=== PATIENT | female | born 1985 ===

== ENCOUNTER 2019-03-24 23:40 | Inpatient (IN) | payer BC ==
[2019-03-24] MEDS ORDERED: Sodium Chloride 0.9% 10 ML Syringe FLUSH PRN (23:58)
[2019-03-24] MEDS ORDERED: Sodium Chloride 0.9% 2.5 ML Syringe FLUSH PRN (23:58)
[2019-03-24] MEDS ORDERED: Acetaminophen 500 MG Tab PO ONE (23:59)
[2019-03-24] MEDS ORDERED: Sodium Chloride 0.9% 1,000 ML IV ONE (23:59)
--- NOTE | 2019-03-25 | EDM.PDOC ---
ED HPI GENERAL MEDICAL PROBLEM - General Chief Complaint: Skin Complaint Stated Complaint: PER PT. SHE HAS A CYST Time Seen by Provider: 03/24/19 23:53 - History of Present Illness INITIAL COMMENTS - FREE TEXT/NARRATIVE: HISTORY AND PHYSICAL: History of present illness: Patient is a 33-year-old female is any significant past medical history and denies and presents with complaints of a cyst or swollen area to her right butt. The patient tells me that this started about 4 days ago but previous to that she had a small bump like area on her left inner butt area that she said that she scratched and fluid came out. Now that area is hardened and is not as painful but the area on the right started swelling in the perianal area about 4 days ago and it is gotten progressively worse and now she is unable to even sit without severe discomfort. She tells me she has not had a fever at home vomiting or diarrhea and is having normal urine output. She has no abdominal pain and no pain up inside her rectal area. She does tell me that she has not been eating and drinking very much for the last day and a half because she does not want to sit on the toilet because of the pain. Tonight she came in because the pain was unbearable and she has not taken anything this evening for it. The patient denies lightheadedness or dizziness she has had no palpitations no chest pain no shortness of breath and no history of cardiac or pulmonary problems. Review of systems: As per history of present illness and below otherwise all systems reviewed and negative. Past medical history: As per history of present illness and as reviewed below otherwise noncontributory. Surgical history: As per history of present illness and as reviewed below otherwise noncontributory. Social history: No reported history of drug or alcohol abuse. Family history: As per history of present illness and as reviewed below otherwise noncontributory. Physical exam: General: Well-developed obese female who is nontoxic but looks uncomfortable in the ED and prefers to not sit and prefers to lie on her side. On my initial evaluation she was standing at the bedside and looks somewhat schmid in color and was diaphoretic. Once we laid her flat her color returned and she is feeling much better. HEENT: Atraumatic, normocephalic, pupils reactive, negative for conjunctival pallor or scleral icterus, mucous membranes moist, throat clear, neck supple, nontender, trachea midline. Lungs: Clear to auscultation, breath sounds equal bilaterally, chest nontender. Heart: S1S2, regular, negative for clicks, rubs, or JVD. Abdomen: Soft, nondistended, nontender. Negative for masses or hepatosplenomegaly. Negative for costovertebral tenderness. Pelvis: Stable nontender. Genitourinary: Deferred. Rectal: At the inner aspect of the left butt cheek several centimeters from the anal verge there is a circular open area with scant fluid drainage consistent with where the patient said she had the prior abscess that she scratched and was draining. She says she has minimal tenderness in this area. At the right inner buttock area originating from the perianal area and extending outwards there is an at least 8 cm x 4 cm oval area of ill-defined erythema warmth and induration with tenderness appreciated in the more inner aspect there is some fluctuance which is ill-defined. The medial to lateral dimension is the 4+ centimeters and the longitudinal dimension is the 8 cm but it does not extend into the perineal space or vaginal area. No evidence of any crepitus along the areas of induration and fluctuance nor in the perineal area. Tone is normal and on digital exam I am unable to really do high exam but I do not feel any gross fluctuance just inside the anus. The patient was not able to tolerate more of this exam. Extremities: Atraumatic, negative for cords or calf pain. Neurovascular unremarkable. Neuro: Awake, alert, oriented. Cranial nerves II through XII unremarkable. Cerebellum unremarkable. Motor and sensory unremarkable throughout. Exam nonfocal. Diagnostics: EKG CBC CMP lactic acid blood cultures UA UCG CT scan of the pelvis with contrast urine culture open A1c serum ketones Therapeutics: IV fluids Tylenol toradol morphine Zofran motrin zosyn insulin subq clindamycin 222a: case Was discussed with our surgeon on-call Dr. Peralta; he is aware of the case and will come and to evaluate the patient and review the CAT scan for disposition. The patient does need to be admitted and managed the question is whether or not we will keep her here or transfer her out and will discuss with the surgeon on his arrival. The patient is aware of the CT scan findings as well as her WBC count her lactate level and her blood glucose level. I did discuss with her that she is likely a new onset/newly diagnosed diabetic. When I query her she says she has never been told she is a prediabetic or ever had any abnormal testing. 312a: Dr Peralta seen the patient and will take her to the operating room in the morning but due to her new onset diabetes would like the hospitalist to admit her. I discussed this case with Dr. Baires who agrees with admission to her for [address] Grayson on consult. Impression: Right buttocks cellulitis/ abscess New onset diabetes Definitive disposition and diagnosis as appropriate pending reevaluation and review of above. lumbosacral region Pain Score (Numeric/FACES): 10 - Related Data Allergies Allergy/AdvReac Type Severity Reaction Status Date / Time No Known Allergies Allergy Verified 03/25/19 00:02 Home Meds: Home Meds Multivitamin [Multi-Vitamin Daily] 1 ea PO DAILY 03/25/19 [History] ED ROS GENERAL - Review of Systems Review Of Systems: Comprehensive ROS is negative, except as noted in HPI. ED EXAM, SKIN/RASH Exam: See Below (see Dictation) Course - Vital Signs Last Recorded V/S: Last Vital Signs Temp 37.7 C 03/25/19 01:47 Pulse 99 03/25/19 01:47 Resp 18 03/25/19 01:47 BP 122/71 03/25/19 01:47 Pulse Ox 95 03/25/19 01:47 - Orders/Labs/Meds Orders: Active Orders 24 hr Category Date Time Status EKG Documentation Completion [RC] STAT Care 03/24/19 23:53 Active Notify Provider Consults [RC] ASDIRECTED Care 03/25/19 02:25 Active Consult to Physician [CONS] Stat Cons 03/25/19 02:24 Active CULTURE BLOOD [BC] Stat Lab 03/24/19 23:59 Received CULTURE BLOOD [BC] Stat Lab 03/24/19 23:59 Received CULTURE URINE [RM] Stat Lab 03/25/19 00:12 Received Clindamycin Phosphate in D5W [Cleocin in D5W] 900 mg Med 03/25/19 03:16 Active Premix Bag 1 bag IV ONETIME Sodium Chloride 0.9% [Normal Saline] 1,000 ml Med 03/25/19 01:15 Active IV ASDIRECTED Sodium Chloride 0.9% [Saline Flush] Med 03/24/19 23:58 Active 10 ml FLUSH ASDIRECTED PRN Sodium Chloride 0.9% [Saline Flush] Med 03/24/19 23:58 Active 2.5 ml FLUSH ASDIRECTED PRN Blood Culture x2 Reflex Set [OM.PC] Stat Oth 03/24/19 23:59 Ordered Saline Lock Insert [OM.PC] Stat Oth 03/24/19 23:57 Ordered Medication Orders Sodium Chloride (Normal Saline) 1,000 mls @ 150 mls/hr IV ASDIRECTED GOLDY Last Admin: 03/25/19 01:20 Dose: 150 mls/hr Clindamycin Phosphate 900 mg/ (Premix) 50 mls @ 100 mls/hr IV ONETIME ONE Stop: 03/25/19 03:45 Sodium Chloride (Saline Flush) 10 ml FLUSH ASDIRECTED PRN PRN Reason: Keep Vein Open Sodium Chloride (Saline Flush) 2.5 ml FLUSH ASDIRECTED PRN PRN Reason: Keep Vein Open Labs: Laboratory Tests 03/25/19 03/25/19 03/25/19 Range/Units 00:05 00:05 00:05 WBC 22.70 H (4.0-11.0) K/uL RBC 5.27 (4.30-5.90) M/uL Hgb 15.5 (12.0-16.0) g/dL Hct 43.5 (36.0-46.0) % MCV 82.5 (80.0-98.0) fL MCH 29.4 (27.0-32.0) pg MCHC 35.6 (31.0-37.0) g/dL RDW Std Deviation 38.2 (28.0-62.0) fl RDW Coeff of Jocy 13 (11.0-15.0) % Plt Count 267 (150-400) K/uL MPV 9.60 (7.40-12.00) fL Add Manual Diff YES Neutrophils % (Manual) 72 (48.0-80.0) % Lymphocytes % (Manual) 21 (16.0-40.0) % Monocytes % (Manual) 7 (0.0-15.0) % Absolute Seg Neuts 16.3 H (1.4-5.7) Lymphocytes # (Manual) 4.8 H (0.6-2.4) Monocytes # (Manual) 1.6 H (0.0-0.8) Lactate 2.2 H* (0.20-2.00) mmol/L Sodium 137 (136-145) mmol/L Potassium 3.5 (3.5-5.1) mmol/L Chloride 100 (98-107) mmol/L Carbon Dioxide 21.6 (21.0-32.0) mmol/L BUN 7 (7.0-18.0) mg/dL Creatinine 0.9 (0.6-1.0) mg/dL Est Cr Clr Drug Dosing 99.37 mL/min Estimated GFR (MDRD) > 60.0 ml/min Glucose 305 H (74-106) mg/dL POC Glucose (60-110) mg/dL Hemoglobin A1c (4.5-6.2) % Calcium 8.8 (8.5-10.1) mg/dL Total Bilirubin 1.4 H (0.2-1.0) mg/dL AST 22 (15-37) IU/L ALT 61 (14-63) IU/L Alkaline Phosphatase 84 (46-116) U/L Total Protein 8.7 H (6.4-8.2) g/dL Albumin 3.5 (3.4-5.0) g/dL Globulin 5.2 H (2.6-4.0) g/dL Albumin/Globulin Ratio 0.7 L (0.9-1.6) Urine Color Urine Appearance Urine pH (5.0-8.0) Ur Specific [place] (1.001-1.035) Urine Protein (NEGATIVE) mg/dL Urine Glucose (UA) (NEGATIVE) mg/dL Urine Ketones (NEGATIVE) mg/dL Urine Occult Blood (NEGATIVE) Urine Nitrite (NEGATIVE) Urine Bilirubin (NEGATIVE) Urine Urobilinogen (<2.0) EU/dL Ur Leukocyte Esterase (NEGATIVE) Urine RBC (0-2/HPF) Urine WBC (0-5/HPF) Ur Epithelial Cells (NONE-FEW) Urine Bacteria (NEGATIVE) Urine HCG, Qual (NEGATIVE) Ketones (NEG) 03/25/19 03/25/19 03/25/19 Range/Units 00:05 00:05 00:12 WBC (4.0-11.0) K/uL RBC (4.30-5.90) M/uL Hgb (12.0-16.0) g/dL Hct (36.0-46.0) % MCV (80.0-98.0) fL MCH (27.0-32.0) pg MCHC (31.0-37.0) g/dL RDW Std Deviation (28.0-62.0) fl RDW Coeff of Jocy (11.0-15.0) % Plt Count (150-400) K/uL MPV (7.40-12.00) fL Add Manual Diff Neutrophils % (Manual) (48.0-80.0) % Lymphocytes % (Manual) (16.0-40.0) % Monocytes % (Manual) (0.0-15.0) % Absolute Seg Neuts (1.4-5.7) Lymphocytes # (Manual) (0.6-2.4) Monocytes # (Manual) (0.0-0.8) Lactate (0.20-2.00) mmol/L Sodium (136-145) mmol/L Potassium (3.5-5.1) mmol/L Chloride (98-107) mmol/L Carbon Dioxide (21.0-32.0) mmol/L BUN (7.0-18.0) mg/dL Creatinine (0.6-1.0) mg/dL Est Cr Clr Drug Dosing mL/min Estimated GFR (MDRD) ml/min Glucose (74-106) mg/dL POC Glucose (60-110) mg/dL Hemoglobin A1c 9.6 H (4.5-6.2) % Calcium (8.5-10.1) mg/dL Total Bilirubin (0.2-1.0) mg/dL AST (15-37) IU/L ALT (14-63) IU/L Alkaline Phosphatase (46-116) U/L Total Protein (6.4-8.2) g/dL Albumin (3.4-5.0) g/dL Globulin (2.6-4.0) g/dL Albumin/Globulin Ratio (0.9-1.6) Urine Color DARK YELLOW Urine Appearance SLT CLOUDY Urine pH 7.0 (5.0-8.0) Ur Specific [place] 1.015 (1.001-1.035) Urine Protein 30 H (NEGATIVE) mg/dL Urine Glucose (UA) >=1000 (NEGATIVE) mg/dL Urine Ketones 15 H (NEGATIVE) mg/dL Urine Occult Blood TRACE-INTACT H (NEGATIVE) Urine Nitrite NEGATIVE (NEGATIVE) Urine Bilirubin SMALL H (NEGATIVE) Urine Urobilinogen 0.2 (<2.0) EU/dL Ur Leukocyte Esterase TRACE H (NEGATIVE) Urine RBC 1-2 (0-2/HPF) Urine WBC 1-2 (0-5/HPF) Ur Epithelial Cells RARE (NONE-FEW) Urine Bacteria RARE (NEGATIVE) Urine HCG, Qual (NEGATIVE) Ketones NEGATIVE (NEG) 03/25/19 03/25/19 03/25/19 Range/Units 00:12 02:22 02:52 WBC (4.0-11.0) K/uL RBC (4.30-5.90) M/uL Hgb (12.0-16.0) g/dL Hct (36.0-46.0) % MCV (80.0-98.0) fL MCH (27.0-32.0) pg MCHC (31.0-37.0) g/dL RDW Std Deviation (28.0-62.0) fl RDW Coeff of Jocy (11.0-15.0) % Plt Count (150-400) K/uL MPV (7.40-12.00) fL Add Manual Diff Neutrophils % (Manual) (48.0-80.0) % Lymphocytes % (Manual) (16.0-40.0) % Monocytes % (Manual) (0.0-15.0) % Absolute Seg Neuts (1.4-5.7) Lymphocytes # (Manual) (0.6-2.4) Monocytes # (Manual) (0.0-0.8) Lactate (0.20-2.00) mmol/L Sodium (136-145) mmol/L Potassium (3.5-5.1) mmol/L Chloride (98-107) mmol/L Carbon Dioxide (21.0-32.0) mmol/L BUN (7.0-18.0) mg/dL Creatinine (0.6-1.0) mg/dL Est Cr Clr Drug Dosing mL/min Estimated GFR (MDRD) ml/min Glucose (74-106) mg/dL POC Glucose 240 H 233 H (60-110) mg/dL Hemoglobin A1c (4.5-6.2) % Calcium (8.5-10.1) mg/dL Total Bilirubin (0.2-1.0) mg/dL AST (15-37) IU/L ALT (14-63) IU/L Alkaline Phosphatase (46-116) U/L Total Protein (6.4-8.2) g/dL Albumin (3.4-5.0) g/dL Globulin (2.6-4.0) g/dL Albumin/Globulin Ratio (0.9-1.6) Urine Color Urine Appearance Urine pH (5.0-8.0) Ur Specific [place] (1.001-1.035) Urine Protein (NEGATIVE) mg/dL Urine Glucose (UA) (NEGATIVE) mg/dL Urine Ketones (NEGATIVE) mg/dL Urine Occult Blood (NEGATIVE) Urine Nitrite (NEGATIVE) Urine Bilirubin (NEGATIVE) Urine Urobilinogen (<2.0) EU/dL Ur Leukocyte Esterase (NEGATIVE) Urine RBC (0-2/HPF) Urine WBC (0-5/HPF) Ur Epithelial Cells (NONE-FEW) Urine Bacteria (NEGATIVE) Urine HCG, Qual NEGATIVE (NEGATIVE) Ketones (NEG) Meds: Medications Generic Name Dose Route Start Last Admin Trade Name Freq PRN Reason Stop Dose Admin Sodium Chloride 1,000 mls @ 150 mls/hr 03/25/19 01:15 03/25/19 01:20 Normal Saline IV 150 mls/hr ASDIRECTED GOLDY Administration Clindamycin Phosphate 900 mg/ 50 mls @ 100 mls/hr 03/25/19 03:16 Premix IV 03/25/19 03:45 ONETIME ONE Sodium Chloride 10 ml 03/24/19 23:58 Saline Flush FLUSH ASDIRECTED PRN Keep Vein Open Sodium Chloride 2.5 ml 03/24/19 23:58 Saline Flush FLUSH ASDIRECTED PRN Keep Vein Open Discontinued Medications Generic Name Dose Route Start Last Admin Trade Name Freq PRN Reason Stop Dose Admin Acetaminophen 1,000 mg 03/24/19 23:59 03/25/19 00:04 Tylenol Extra Strength PO 03/25/19 00:00 1,000 mg ONETIME ONE Administration Sodium Chloride 1,000 mls @ 999 mls/hr 03/24/19 23:59 03/25/19 00:04 Normal Saline IV 03/25/19 00:59 999 mls/hr STAT ONE Administration Sodium Chloride 1,000 mls @ 999 mls/hr 03/25/19 00:47 03/25/19 00:48 Normal Saline IV 03/25/19 01:47 999 mls/hr .Bolus ONE Administration Piperacillin Sod/Tazobactam 100 mls @ 100 mls/hr 03/25/19 01:09 03/25/19 01: 20 Sod 4.5 gm/ Sodium Chloride IV 03/25/19 02:08 100 mls/hr ONETIME ONE Administration Ibuprofen 800 mg 03/25/19 00:49 03/25/19 00:53 Motrin PO 03/25/19 00:50 800 mg ONETIME ONE Administration Insulin Human Regular 8 unit 03/25/19 02:16 03/25/19 02:24 Novolin R SUBCUT 03/25/19 02:17 6 units ONETIME ONE Administration Protocol Iopamidol 100 ml 03/25/19 01:16 03/25/19 01:28 Isovue-370 (76%) IVPUSH 03/25/19 01:17 100 ml ONETIME STA Administration Ketorolac Tromethamine 30 mg 03/25/19 00:25 03/25/19 00:36 Toradol IVPUSH 03/25/19 00:26 30 mg ONETIME ONE Administration Morphine Sulfate 4 mg 03/25/19 00:25 03/25/19 00:37 Morphine IVPUSH 03/25/19 00:26 4 mg ONETIME ONE Administration Morphine Sulfate 4 mg 03/25/19 01:41 03/25/19 01:47 Morphine IVPUSH 03/25/19 01:42 4 mg ONETIME ONE Administration Ondansetron HCl 4 mg 03/25/19 00:25 03/25/19 00:37 Zofran IVPUSH 03/25/19 00:26 4 mg ONETIME ONE Administration Departure - Departure Time of Disposition: 03:23 Disposition: Refer to Observation Condition: Good Clinical Impression: Abscess, Diabetes mellitus, new onset - Discharge Information Referrals: PCP,None [Primary Care Provider] - Forms: ED Department Discharge Sepsis Event Note - Focused Exam Vital Signs: Vital Signs Temp Temp Temp Pulse Resp BP Pulse Ox 03/25/19 01:47 37.7 C 99 18 122/71 95 03/25/19 01:07 38.1 C 101 H 18 117/72 97 03/25/19 00:53 38.3 C H 03/25/19 00:35 38.3 C H 112 H 22 H 147/81 H 96 03/25/19 00:06 38.6 C H 03/25/19 00:04 38.6 C H 03/24/19 23:53 36.4 C 152 H 16 153/84 H 96 Date Exam was Performed: 03/25/19 Time Exam was Performed: 03:22 - My Orders Last 24 Hours: My Active Orders 03/24/19 23:53 EKG Documentation Completion [RC] STAT 03/24/19 23:57 Saline Lock Insert [OM.PC] Stat 03/24/19 23:58 Sodium Chloride 0.9% [Saline Flush] 10 ml FLUSH ASDIRECTED PRN Sodium Chloride 0.9% [Saline Flush] 2.5 ml FLUSH ASDIRECTED PRN 03/24/19 23:59 CULTURE BLOOD [BC] Stat CULTURE BLOOD [BC] Stat Blood Culture x2 Reflex Set [OM.PC] Stat 03/25/19 00:12 CULTURE URINE [RM] Stat 03/25/19 01:15 Sodium Chloride 0.9% [Normal Saline] 1,000 ml IV ASDIRECTED 03/25/19 02:24 Consult to Physician [CONS] Stat 03/25/19 02:25 Notify Provider Consults [RC] ASDIRECTED 03/25/19 03:16 Clindamycin Phosphate in D5W [Cleocin in D5W] 900 mg Premix Bag 1 bag IV ONETIME - Assessment/Plan Last 24 Hours: My Active Orders 03/24/19 23:53 EKG Documentation Completion [RC] STAT 03/24/19 23:57 Saline Lock Insert [OM.PC] Stat 03/24/19 23:58 Sodium Chloride 0.9% [Saline Flush] 10 ml FLUSH ASDIRECTED PRN Sodium Chloride 0.9% [Saline Flush] 2.5 ml FLUSH ASDIRECTED PRN 03/24/19 23:59 CULTURE BLOOD [BC] Stat CULTURE BLOOD [BC] Stat Blood Culture x2 Reflex Set [OM.PC] Stat 03/25/19 00:12 CULTURE URINE [RM] Stat 03/25/19 01:15 Sodium Chloride 0.9% [Normal Saline] 1,000 ml IV ASDIRECTED 03/25/19 02:24 Consult to Physician [CONS] Stat 03/25/19 02:25 Notify Provider Consults [RC] ASDIRECTED 03/25/19 03:16 Clindamycin Phosphate in D5W [Cleocin in D5W] 900 mg Premix Bag 1 bag IV ONETIME
[2019-03-25] MEDS ORDERED: Ondansetron 4 MG/2 ML SDV IVPUSH ONE (00:25)
[2019-03-25] MEDS ORDERED: Morphine 2 MG/ML Syringe IVPUSH ONE (00:25)
[2019-03-25] MEDS ORDERED: Ketorolac 30 MG/ML SDV IVPUSH ONE (00:25)
[2019-03-25 00:33] LABS: BLOOD UREA NITROGEN,BUN 7 mg/dL (7.0-18.0); CARBON DIOXIDE,CO2 21.6 mmol/L (21.0-32.0); CHLORIDE,CL 100 mmol/L (98-107); GLUCOSE RANDOM 305 mg/dL (74-106); POTASSIUM,K 3.5 mmol/L (3.5-5.1); SODIUM,NA 137 mmol/L (136-145)
[2019-03-25] MEDS ORDERED: Sodium Chloride 0.9% 1,000 ML IV ONE (00:47)
[2019-03-25] MEDS ORDERED: Ibuprofen 800 MG Tab PO ONE (00:49)
[2019-03-25] MEDS ORDERED: Piperacillin/Tazobactam 4.5 GM in Sodium Chloride 0.9% 100 ML IV ONE (01:09)
[2019-03-25] MEDS ORDERED: Sodium Chloride 0.9% 1,000 ML IV SCH (01:15)
[2019-03-25] MEDS ORDERED: Iopamidol 755 Mg/ML 100 ML Bottle IVPUSH STA (01:16)
[2019-03-25] MEDS ORDERED: Morphine 4 MG/ML Syringe IVPUSH ONE (01:41)
--- NOTE | 2019-03-25 02:07 | CT ---
INDICATION: Right-sided buttock pain and swelling TECHNIQUE: CT pelvis with 100 cc Isovue 370 contrast. COMPARISON: None FINDINGS: There is a moderate amount of air within the subcutaneous fat of the medial right buttock. No definite rim enhancing fluid collection identified. Osseous structures are intact. Visualized organs of the lower abdomen and pelvis demonstrate hepatic steatosis. IMPRESSION: Moderate amount of air within the subcutaneous fat of the medial right buttock. No definite abscess identified. Although the air could be due to a ruptured abscess, the findings are also concerning for necrotizing soft tissue infection. Findings discussed with Dr. Lee at 2 a.m. on March 25, 2019. Please note that all CT scans at this facility use dose modulation, iterative reconstruction, and/or weight-based dosing when appropriate to reduce radiation dose to as low as reasonably achievable. Dictated by Ann Marie Desai MD @ Mar 25 2019 1:56AM Signed by Dr. Ann Marie Desai @ Mar 25 2019 2:05AM
[2019-03-25] MEDS ORDERED: Insulin Regular, Human 100 Units/ML 10 ML Vial SUBCUT ONE (02:16)
[2019-03-25 02:32] LABS: HEMOGLOBIN A1C 9.6 % (4.5-6.2)
[2019-03-25] MEDS ORDERED: Clindamycin Phosphate in D5W 900 MG in Premix Bag 1 BAG IV ONE ×2 (03:16)
--- NOTE | 2019-03-25 03:33 | PCM.SN ---
- Free Text/Narrative Note: pt seen, chart reviewed; large perirectal abscess; would take to OR ID tomorrow ; please no anticoagulation and keep pt NPO after midnight
--- NOTE | 2019-03-25 03:56 | CONS ---
DATE OF CONSULTATION: DATE OF : 1985 PRIMARY CARE PHYSICIAN: None PCP This is a consult from Dr. Vidhi Lee. Concerning question is buttock infection. HISTORY OF PRESENT ILLNESS: The patient is a 33-year-old morbidly obese lady, weight more than 340 pounds, seen in emergency room for 4-day history of buttock infection. CAT scan shows some air inside and in the perineum area. There is some concern about necrotizing fasciitis and General Surgery was consulted. The patient also remarked fever. PAST MEDICAL HISTORY: Significant for no diabetic, [place], CVA, hypertension. However, the patient's blood glucose is 300 something. PAST SURGICAL HISTORY: None. ALLERGIES: Please refer to nursing for details. MEDICATIONS: Please refer to nursing for details. PHYSICAL EXAMINATION: GENERAL: The patient does not seem to have exaggerated pain. HEENT: Normocephalic, atraumatic, and with a ring in the nose. LUNGS: Clear to auscultation. HEART: Regular rate and rhythm. ABDOMEN: Soft, nondistended. No pulsating tender midline abdominal structure. On perineum inspection, there was a puncture hole on the left buttock and on the right buttock, has very extensive cellulitis and tender to touch, but the cellulitis does not extend into the front into the vulva area. IMAGING: CAT scan shows extensive air localized. IMPRESSION: Likely isolated subcu abscess. Will benefit from I and D in timely basis. With the patient's comorbidity and glucose of 300 something and body habitus of 330 pounds something, the patient is probably an undiagnosed diabetic. CAT scan suggests infection. Plan to take the patient into I and D in the morning or tomorrow, and plan has been discussed with the ER provider. ALLEN / LINDSEY /[id number]
[2019-03-25] MEDS ORDERED: Propofol 200 MG/20 ML SDV ONE ×2 (06:59→07:37)
[2019-03-25] MEDS ORDERED: Midazolam 1 MG/ML 2 ML SDV ONE (06:59)
[2019-03-25] MEDS ORDERED: Lidocaine 2% 5 ML SDV ONE (07:00)
[2019-03-25] MEDS ORDERED: Ondansetron 4 MG/2 ML SDV ONE (07:00)
[2019-03-25] MEDS ORDERED: Rocuronium 100 MG/10 ML Syringe ONE (07:00)
[2019-03-25] MEDS ORDERED: fentaNYL 250 MCG/5 ML SDV ONE (07:00)
[2019-03-25] MEDS ORDERED: Bupivacaine 25%/EPINEPHrine/PF 30 ML ONE (07:22)
--- NOTE | 2019-03-25 07:48 | PCM.HP.2 ---
H&P History of Present Illness - General Date of Service: 03/25/19 Admit Problem/Dx: Admission Diagnosis/Problem Admission Diagnosis/Problem Abscess Source of Information: Patient History Limitations: Reports: No Limitations - History of Present Illness Initial Comments - Free Text/Narative: This is a 33 year old female with pmh of obesity who presented to the ER with c/ o of a "bump"to the right side of her butt. She has no fever, vomiting, loose stools, chest pain, or SOB. She has no known significant medical history. ER work up included EKG, CT, WBC 22, Lactate 2.2, Glucose 305, A1C 9.6, Urine positive for protein. Dr. Peralta consulted. Patient admitted for I/D of perirectal abscess scheduled for in the morning. Patient notified of new onset diabetes and diabetic education will consult. Fluids, Morphine,Toradol, Zofran, Zosyn, and Clindamycin started in the ER. Post surgical patient returns with a pain rating of 0 and is comfortable laying on her side. She is in no acute distress with no c/o of chest pain or SOB and is at her side. lumbosacral region Pain Score (Numeric/FACES): 3 - Related Data Allergies/Adverse Reactions: Allergies Allergy/AdvReac Type Severity Reaction Status Date / Time No Known Allergies Allergy Verified 03/25/19 07:54 Home Medications: Home Meds Multivitamin [Multi-Vitamin Daily] 1 ea PO DAILY 03/25/19 [History] Past Medical History - Past Health History Medical/Surgical History: Denies Medical/Surgical History Endocrine/Metabolic History: Reports: Diabetes, Type II Social & Family History - Tobacco Use Smoking Status *Q: Never Smoker Used Tobacco, but Quit: Yes Month/Year Tobacco Last Used: 2010 - Caffeine Use Caffeine Use: Reports: Tea - Recreational Drug Use Recreational Drug Use: No H&P Review of Systems - Review of Systems: Review Of Systems: See Below General: Reports: No Symptoms HEENT: Reports: No Symptoms Pulmonary: Reports: No Symptoms. Denies: Shortness of Breath Cardiovascular: Reports: No Symptoms. Denies: Chest Pain Gastrointestinal: Reports: No Symptoms. Denies: Abdominal Pain, Black Stool, Bloody Stool, Nausea, Vomiting Genitourinary: Reports: No Symptoms Musculoskeletal: Reports: No Symptoms Skin: Reports: No Symptoms, Wound ( post surgical dressing intact.) Psychiatric: Reports: No Symptoms Neurological: Reports: No Symptoms Hematologic/Lymphatic: Reports: No Symptoms Immunologic: Reports: No Symptoms Exam - Exam Exam: See Below - Vital Signs Vital Signs: Last Vital Signs Temp 97.4 F 03/25/19 07:33 Pulse 137 H 03/25/19 07:33 Resp 20 03/25/19 07:33 BP 118/64 03/25/19 07:33 Pulse Ox 95 03/25/19 07:33 Weight: 140.886 kg - Exam General: Alert, Oriented Lungs: Clear to Auscultation Cardiovascular: Regular Rate, Regular Rhythm GI/Abdominal Exam: Normal Bowel Sounds, Soft, Non-Tender Skin: Warm, Dry, Wound (buttocks, post op dressing intact. ) - Patient Data Lab Results Last 24 hrs: Laboratory Results - last 24 hr 03/25/19 03/25/19 03/25/19 Range/Units 00:05 00:05 00:05 WBC 22.70 H (4.0-11.0) K/uL RBC 5.27 (4.30-5.90) M/uL Hgb 15.5 (12.0-16.0) g/dL Hct 43.5 (36.0-46.0) % MCV 82.5 (80.0-98.0) fL MCH 29.4 (27.0-32.0) pg MCHC 35.6 (31.0-37.0) g/dL RDW Std Deviation 38.2 (28.0-62.0) fl RDW Coeff of Jocy 13 (11.0-15.0) % Plt Count 267 (150-400) K/uL MPV 9.60 (7.40-12.00) fL Add Manual Diff YES Neutrophils % (Manual) 72 (48.0-80.0) % Lymphocytes % (Manual) 21 (16.0-40.0) % Monocytes % (Manual) 7 (0.0-15.0) % Absolute Seg Neuts 16.3 H (1.4-5.7) Lymphocytes # (Manual) 4.8 H (0.6-2.4) Monocytes # (Manual) 1.6 H (0.0-0.8) Lactate 2.2 H* (0.20-2.00) mmol/L Sodium 137 (136-145) mmol/L Potassium 3.5 (3.5-5.1) mmol/L Chloride 100 (98-107) mmol/L Carbon Dioxide 21.6 (21.0-32.0) mmol/L BUN 7 (7.0-18.0) mg/dL Creatinine 0.9 (0.6-1.0) mg/dL Est Cr Clr Drug Dosing 99.37 mL/min Estimated GFR (MDRD) > 60.0 ml/min Glucose 305 H (74-106) mg/dL POC Glucose (60-110) mg/dL Hemoglobin A1c (4.5-6.2) % Calcium 8.8 (8.5-10.1) mg/dL Total Bilirubin 1.4 H (0.2-1.0) mg/dL AST 22 (15-37) IU/L ALT 61 (14-63) IU/L Alkaline Phosphatase 84 (46-116) U/L Total Protein 8.7 H (6.4-8.2) g/dL Albumin 3.5 (3.4-5.0) g/dL Globulin 5.2 H (2.6-4.0) g/dL Albumin/Globulin Ratio 0.7 L (0.9-1.6) Urine Color Urine Appearance Urine pH (5.0-8.0) Ur Specific [place] (1.001-1.035) Urine Protein (NEGATIVE) mg/dL Urine Glucose (UA) (NEGATIVE) mg/dL Urine Ketones (NEGATIVE) mg/dL Urine Occult Blood (NEGATIVE) Urine Nitrite (NEGATIVE) Urine Bilirubin (NEGATIVE) Urine Urobilinogen (<2.0) EU/dL Ur Leukocyte Esterase (NEGATIVE) Urine RBC (0-2/HPF) Urine WBC (0-5/HPF) Ur Epithelial Cells (NONE-FEW) Urine Bacteria (NEGATIVE) Urine HCG, Qual (NEGATIVE) Ketones (NEG) 03/25/19 03/25/19 03/25/19 Range/Units 00:05 00:05 00:12 WBC (4.0-11.0) K/uL RBC (4.30-5.90) M/uL Hgb (12.0-16.0) g/dL Hct (36.0-46.0) % MCV (80.0-98.0) fL MCH (27.0-32.0) pg MCHC (31.0-37.0) g/dL RDW Std Deviation (28.0-62.0) fl RDW Coeff of Jocy (11.0-15.0) % Plt Count (150-400) K/uL MPV (7.40-12.00) fL Add Manual Diff Neutrophils % (Manual) (48.0-80.0) % Lymphocytes % (Manual) (16.0-40.0) % Monocytes % (Manual) (0.0-15.0) % Absolute Seg Neuts (1.4-5.7) Lymphocytes # (Manual) (0.6-2.4) Monocytes # (Manual) (0.0-0.8) Lactate (0.20-2.00) mmol/L Sodium (136-145) mmol/L Potassium (3.5-5.1) mmol/L Chloride (98-107) mmol/L Carbon Dioxide (21.0-32.0) mmol/L BUN (7.0-18.0) mg/dL Creatinine (0.6-1.0) mg/dL Est Cr Clr Drug Dosing mL/min Estimated GFR (MDRD) ml/min Glucose (74-106) mg/dL POC Glucose (60-110) mg/dL Hemoglobin A1c 9.6 H (4.5-6.2) % Calcium (8.5-10.1) mg/dL Total Bilirubin (0.2-1.0) mg/dL AST (15-37) IU/L ALT (14-63) IU/L Alkaline Phosphatase (46-116) U/L Total Protein (6.4-8.2) g/dL Albumin (3.4-5.0) g/dL Globulin (2.6-4.0) g/dL Albumin/Globulin Ratio (0.9-1.6) Urine Color DARK YELLOW Urine Appearance SLT CLOUDY Urine pH 7.0 (5.0-8.0) Ur Specific [place] 1.015 (1.001-1.035) Urine Protein 30 H (NEGATIVE) mg/dL Urine Glucose (UA) >=1000 (NEGATIVE) mg/dL Urine Ketones 15 H (NEGATIVE) mg/dL Urine Occult Blood TRACE-INTACT H (NEGATIVE) Urine Nitrite NEGATIVE (NEGATIVE) Urine Bilirubin SMALL H (NEGATIVE) Urine Urobilinogen 0.2 (<2.0) EU/dL Ur Leukocyte Esterase TRACE H (NEGATIVE) Urine RBC 1-2 (0-2/HPF) Urine WBC 1-2 (0-5/HPF) Ur Epithelial Cells RARE (NONE-FEW) Urine Bacteria RARE (NEGATIVE) Urine HCG, Qual (NEGATIVE) Ketones NEGATIVE (NEG) 03/25/19 03/25/19 03/25/19 Range/Units 00:12 02:22 02:52 WBC (4.0-11.0) K/uL RBC (4.30-5.90) M/uL Hgb (12.0-16.0) g/dL Hct (36.0-46.0) % MCV (80.0-98.0) fL MCH (27.0-32.0) pg MCHC (31.0-37.0) g/dL RDW Std Deviation (28.0-62.0) fl RDW Coeff of Jocy (11.0-15.0) % Plt Count (150-400) K/uL MPV (7.40-12.00) fL Add Manual Diff Neutrophils % (Manual) (48.0-80.0) % Lymphocytes % (Manual) (16.0-40.0) % Monocytes % (Manual) (0.0-15.0) % Absolute Seg Neuts (1.4-5.7) Lymphocytes # (Manual) (0.6-2.4) Monocytes # (Manual) (0.0-0.8) Lactate (0.20-2.00) mmol/L Sodium (136-145) mmol/L Potassium (3.5-5.1) mmol/L Chloride (98-107) mmol/L Carbon Dioxide (21.0-32.0) mmol/L BUN (7.0-18.0) mg/dL Creatinine (0.6-1.0) mg/dL Est Cr Clr Drug Dosing mL/min Estimated GFR (MDRD) ml/min Glucose (74-106) mg/dL POC Glucose 240 H 233 H (60-110) mg/dL Hemoglobin A1c (4.5-6.2) % Calcium (8.5-10.1) mg/dL Total Bilirubin (0.2-1.0) mg/dL AST (15-37) IU/L ALT (14-63) IU/L Alkaline Phosphatase (46-116) U/L Total Protein (6.4-8.2) g/dL Albumin (3.4-5.0) g/dL Globulin (2.6-4.0) g/dL Albumin/Globulin Ratio (0.9-1.6) Urine Color Urine Appearance Urine pH (5.0-8.0) Ur Specific [place] (1.001-1.035) Urine Protein (NEGATIVE) mg/dL Urine Glucose (UA) (NEGATIVE) mg/dL Urine Ketones (NEGATIVE) mg/dL Urine Occult Blood (NEGATIVE) Urine Nitrite (NEGATIVE) Urine Bilirubin (NEGATIVE) Urine Urobilinogen (<2.0) EU/dL Ur Leukocyte Esterase (NEGATIVE) Urine RBC (0-2/HPF) Urine WBC (0-5/HPF) Ur Epithelial Cells (NONE-FEW) Urine Bacteria (NEGATIVE) Urine HCG, Qual NEGATIVE (NEGATIVE) Ketones (NEG) 03/25/19 03/25/19 Range/Units 04:22 05:58 WBC (4.0-11.0) K/uL RBC (4.30-5.90) M/uL Hgb (12.0-16.0) g/dL Hct (36.0-46.0) % MCV (80.0-98.0) fL MCH (27.0-32.0) pg MCHC (31.0-37.0) g/dL RDW Std Deviation (28.0-62.0) fl RDW Coeff of Jocy (11.0-15.0) % Plt Count (150-400) K/uL MPV (7.40-12.00) fL Add Manual Diff Neutrophils % (Manual) (48.0-80.0) % Lymphocytes % (Manual) (16.0-40.0) % Monocytes % (Manual) (0.0-15.0) % Absolute Seg Neuts (1.4-5.7) Lymphocytes # (Manual) (0.6-2.4) Monocytes # (Manual) (0.0-0.8) Lactate 1.3 (0.20-2.00) mmol/L Sodium (136-145) mmol/L Potassium (3.5-5.1) mmol/L Chloride (98-107) mmol/L Carbon Dioxide (21.0-32.0) mmol/L BUN (7.0-18.0) mg/dL Creatinine (0.6-1.0) mg/dL Est Cr Clr Drug Dosing mL/min Estimated GFR (MDRD) ml/min Glucose (74-106) mg/dL POC Glucose 206 H (60-110) mg/dL Hemoglobin A1c (4.5-6.2) % Calcium (8.5-10.1) mg/dL Total Bilirubin (0.2-1.0) mg/dL AST (15-37) IU/L ALT (14-63) IU/L Alkaline Phosphatase (46-116) U/L Total Protein (6.4-8.2) g/dL Albumin (3.4-5.0) g/dL Globulin (2.6-4.0) g/dL Albumin/Globulin Ratio (0.9-1.6) Urine Color Urine Appearance Urine pH (5.0-8.0) Ur Specific [place] (1.001-1.035) Urine Protein (NEGATIVE) mg/dL Urine Glucose (UA) (NEGATIVE) mg/dL Urine Ketones (NEGATIVE) mg/dL Urine Occult Blood (NEGATIVE) Urine Nitrite (NEGATIVE) Urine Bilirubin (NEGATIVE) Urine Urobilinogen (<2.0) EU/dL Ur Leukocyte Esterase (NEGATIVE) Urine RBC (0-2/HPF) Urine WBC (0-5/HPF) Ur Epithelial Cells (NONE-FEW) Urine Bacteria (NEGATIVE) Urine HCG, Qual (NEGATIVE) Ketones (NEG) Result Diagrams: 03/25/19 08:46 03/25/19 08:46 Sepsis Event Note - Evaluation Sepsis Screening Result: No Definite Risk - Focused Exam Vital Signs: Vital Signs Temp Temp Temp Pulse Resp BP BP 03/25/19 07:33 97.4 F 137 H 20 118/64 03/25/19 04:10 97.2 F 92 17 115/59 L 03/25/19 03:33 99.2 F 93 18 111/72 03/25/19 01:47 99.9 F 99 18 122/71 03/25/19 01:07 100.5 F 101 H 18 117/72 03/25/19 00:53 101.0 F H 03/25/19 00:35 101.0 F H 112 H 22 H 147/81 H 03/25/19 00:06 101.5 F H 03/25/19 00:04 101.5 F H 03/24/19 23:53 97.5 F 152 H 16 153/84 H Pulse Ox 03/25/19 07:33 95 03/25/19 04:10 95 03/25/19 03:33 96 03/25/19 01:47 95 03/25/19 01:07 97 03/25/19 00:53 03/25/19 00:35 96 03/25/19 00:06 03/25/19 00:04 03/24/19 23:53 96 Date Exam was Performed: 03/25/19 Time Exam was Performed: 13:03 - Problem List (1) Perirectal abscess SNOMED Code(s): 41197452 ICD Code: K61.1 - RECTAL ABSCESS Status: Acute Current Visit: Yes (2) Obesity SNOMED Code(s): 498724599, 838498927 ICD Code: E66.9 - OBESITY, UNSPECIFIED Status: Acute Current Visit: Yes (3) Diabetes mellitus, new onset SNOMED Code(s): 071631534, 306078419 ICD Code: E11.9 - TYPE 2 DIABETES MELLITUS WITHOUT COMPLICATIONS Status: Acute Current Visit: Yes Problem List Initiated/Reviewed/Updated: Yes Orders Last 24hrs: Active Orders 24 hr Category Date Time Status Patient Status [ADT] Stat ADT 03/25/19 03:24 Active Blood Glucose Check, Bedside [RC] Q6H Care 03/25/19 05:49 Active Notify Provider Consults [RC] ASDIRECTED Care 03/25/19 02:25 Active Verify Patient Consent Obtain [RC] ASDIRECTED Care 03/25/19 03:32 Active Consult to Physician [CONS] Stat Cons 03/25/19 02:24 Active Nothing per Oral After Midnight Diet [DIET] Diet 03/24/19 Dinner Active CULTURE BLOOD [BC] Stat Lab 03/24/19 23:59 Received CULTURE BLOOD [BC] Stat Lab 03/24/19 23:59 Received CULTURE URINE [RM] Stat Lab 03/25/19 00:12 Received Sodium Chloride 0.9% [Normal Saline] 1,000 ml Med 03/25/19 01:15 Active IV ASDIRECTED Sodium Chloride 0.9% [Saline Flush] Med 03/24/19 23:58 Active 10 ml FLUSH ASDIRECTED PRN Sodium Chloride 0.9% [Saline Flush] Med 03/24/19 23:58 Active 2.5 ml FLUSH ASDIRECTED PRN Blood Culture x2 Reflex Set [OM.PC] Stat Oth 03/24/19 23:59 Ordered Saline Lock Insert [OM.PC] Stat Oth 03/24/19 23:57 Ordered Medication Orders Sodium Chloride (Normal Saline) 1,000 mls @ 150 mls/hr IV ASDIRECTED GOLDY Last Admin: 03/25/19 01:20 Dose: 150 mls/hr Sodium Chloride (Saline Flush) 10 ml FLUSH ASDIRECTED PRN PRN Reason: Keep Vein Open Sodium Chloride (Saline Flush) 2.5 ml FLUSH ASDIRECTED PRN PRN Reason: Keep Vein Open Assessment/Plan Comment:: This 33 year old female admitted with sepsis secondary to prei-rectal abscess, Dr Peralta consulted for I&D 1. Perirectal abscess: To OR early this morning for I&D. Tachycardia, fever in ED and OR. Bolused in the OR. Continue IVFs post op NS 150. Monitor closely. No hypotension, Lactic acid tere. Returns to floor alert and oriented. Pain controlled. Will cover with Vancomycin for MRSA and Zosyn for gram negative organism. Cultures pending. 2. Dm type 2: new onset, SSI Novolog. Counseled on new diagnosis, DM educator later today. Monitor consider Lantus at bedtime and Metformin on discharge. VTE prophylaxis: SCDs and ambulation DIspo; 1-3 days - Mortality Measure Prognosis:: Good
[2019-03-25] MEDS ORDERED: Phenylephrine/Normal Saline 100 MCG/ML 10 ML Syringe ONE (08:05)
--- NOTE | 2019-03-25 08:28 | PCM.PREANE ---
Preanesthetic Assessment - Anesthesia/Transfusion/Family Hx Anesthesia History: No Prior Anesthesia Family History of Anesthesia Reaction: No Transfusion History: No Prior Transfusion(s) - Review of Systems General: Fever Pulmonary: No Symptoms Cardiovascular: No Symptoms Gastrointestinal: No Symptoms Neurological: No Symptoms Other: Reports: None - Physical Assessment NPO Status Date: 03/24/19 NPO Status Time: 19:00 Vital Signs: Last Vital Signs Temp 97.4 F 03/25/19 07:33 Pulse 137 H 03/25/19 07:33 Resp 20 03/25/19 07:33 BP 118/64 03/25/19 07:33 Pulse Ox 95 03/25/19 07:33 Height: 5 ft 11 in Weight: 140.886 kg ASA Class: 3 Mental Status: Alert & Oriented x3 Airway Class: Mallampati = 2 Dentition: Reports: Normal Dentition Thyro-Mental Finger Breadths: 3 Mouth Opening Finger Breadths: 3 ROM/Head Extension: Full Lungs: Clear to Auscultation, Normal Respiratory Effort Cardiovascular: Regular Rhythm, Tachycardia - Lab Values: Laboratory Last Values WBC 22.70 K/uL (4.0-11.0) H 03/25/19 00:05 RBC 5.27 M/uL (4.30-5.90) 03/25/19 00:05 Hgb 15.5 g/dL (12.0-16.0) 03/25/19 00:05 Hct 43.5 % (36.0-46.0) 03/25/19 00:05 MCV 82.5 fL (80.0-98.0) 03/25/19 00:05 MCH 29.4 pg (27.0-32.0) 03/25/19 00:05 MCHC 35.6 g/dL (31.0-37.0) 03/25/19 00:05 RDW Std Deviation 38.2 fl (28.0-62.0) 03/25/19 00:05 RDW Coeff of Jocy 13 % (11.0-15.0) 03/25/19 00:05 Plt Count 267 K/uL (150-400) 03/25/19 00:05 MPV 9.60 fL (7.40-12.00) 03/25/19 00:05 Add Manual Diff YES 03/25/19 00:05 Neutrophils % (Manual) 72 % (48.0-80.0) 03/25/19 00:05 Lymphocytes % (Manual) 21 % (16.0-40.0) 03/25/19 00:05 Monocytes % (Manual) 7 % (0.0-15.0) 03/25/19 00:05 Absolute Seg Neuts 16.3 (1.4-5.7) H 03/25/19 00:05 Lymphocytes # (Manual) 4.8 (0.6-2.4) H 03/25/19 00:05 Monocytes # (Manual) 1.6 (0.0-0.8) H 03/25/19 00:05 Lactate 1.3 mmol/L (0.20-2.00) 03/25/19 04:22 Sodium 137 mmol/L (136-145) 03/25/19 00:05 Potassium 3.5 mmol/L (3.5-5.1) 03/25/19 00:05 Chloride 100 mmol/L (98-107) 03/25/19 00:05 Carbon Dioxide 21.6 mmol/L (21.0-32.0) 03/25/19 00:05 BUN 7 mg/dL (7.0-18.0) 03/25/19 00:05 Creatinine 0.9 mg/dL (0.6-1.0) 03/25/19 00:05 Est Cr Clr Drug Dosing 99.37 mL/min 03/25/19 00:05 Estimated GFR (MDRD) > 60.0 ml/min 03/25/19 00:05 Glucose 305 mg/dL (74-106) H 03/25/19 00:05 POC Glucose 206 mg/dL (60-110) H 03/25/19 05:58 Hemoglobin A1c 9.6 % (4.5-6.2) H 03/25/19 00:05 Calcium 8.8 mg/dL (8.5-10.1) 03/25/19 00:05 Total Bilirubin 1.4 mg/dL (0.2-1.0) H 03/25/19 00:05 AST 22 IU/L (15-37) 03/25/19 00:05 ALT 61 IU/L (14-63) 03/25/19 00:05 Alkaline Phosphatase 84 U/L (46-116) 03/25/19 00:05 Total Protein 8.7 g/dL (6.4-8.2) H 03/25/19 00:05 Albumin 3.5 g/dL (3.4-5.0) 03/25/19 00:05 Globulin 5.2 g/dL (2.6-4.0) H 03/25/19 00:05 Albumin/Globulin Ratio 0.7 (0.9-1.6) L 03/25/19 00:05 Urine Color DARK YELLOW 03/25/19 00:12 Urine Appearance SLT CLOUDY 03/25/19 00:12 Urine pH 7.0 (5.0-8.0) 03/25/19 00:12 Ur Specific [place] 1.015 (1.001-1.035) 03/25/19 00:12 Urine Protein 30 mg/dL (NEGATIVE) H 03/25/19 00:12 Urine Glucose (UA) >=1000 mg/dL (NEGATIVE) 03/25/19 00:12 Urine Ketones 15 mg/dL (NEGATIVE) H 03/25/19 00:12 Urine Occult Blood TRACE-INTACT (NEGATIVE) H 03/25/19 00:12 Urine Nitrite NEGATIVE (NEGATIVE) 03/25/19 00:12 Urine Bilirubin SMALL (NEGATIVE) H 03/25/19 00:12 Urine Urobilinogen 0.2 EU/dL (<2.0) 03/25/19 00:12 Ur Leukocyte Esterase TRACE (NEGATIVE) H 03/25/19 00:12 Urine RBC 1-2 (0-2/HPF) 03/25/19 00:12 Urine WBC 1-2 (0-5/HPF) 03/25/19 00:12 Ur Epithelial Cells RARE (NONE-FEW) 03/25/19 00:12 Urine Bacteria RARE (NEGATIVE) 03/25/19 00:12 Urine HCG, Qual NEGATIVE (NEGATIVE) 03/25/19 00:12 Ketones NEGATIVE (NEG) 03/25/19 00:05 - Allergies Allergies/Adverse Reactions: Allergies Allergy/AdvReac Type Severity Reaction Status Date / Time No Known Allergies Allergy Verified 03/25/19 07:54 - Anesthesia Plan Free Text/Narrative:: Pt presents with perirectal abscess x4-5 days. Pt with significant tachycardia on admission and tachycardia pre-op. Elevated WBC and fever through the night. Suspect sepsis at this time. - Acknowledgements Anesthesia Type Planned: MAC Pt an Appropriate Candidate for the Planned Anesthesia: Yes Alternatives and Risks of Anesthesia Discussed w Pt/Guardian: Yes Pt/Guardian Understands and Agrees with Anesthesia Plan: Yes PreAnesthesia Questionnaire - Past Health History Medical/Surgical History: Denies Medical/Surgical History HEENT History: Reports: None Cardiovascular History: Reports: None Respiratory History: Reports: None Gastrointestinal History: Reports: GERD (occ) Genitourinary History: Reports: None DISPATCHER MAINTENANCE SERVICE History: Reports: None Musculoskeletal History: Reports: None Neurological History: Reports: None Psychiatric History: Reports: None Endocrine/Metabolic History: Reports: Diabetes, Type II (New onset, untreated DM , HgA1C 9 range) Hematologic History: Reports: None Immunologic History: Reports: None Oncologic (Cancer) History: Reports: None Dermatologic History: Reports: None - Infectious Disease History Infectious Disease History: Reports: None - SUBSTANCE USE Smoking Status *Q: Never Smoker Recreational Drug Use History: No - HOME MEDS Home Medications: Home Meds Multivitamin [Multi-Vitamin Daily] 1 ea PO DAILY 03/25/19 [History] - CURRENT (IN HOUSE) MEDS Current Meds: Current Medications Sodium Chloride (Normal Saline) 1,000 mls @ 150 mls/hr IV ASDIRECTED GOLDY Last Admin: 03/25/19 01:20 Dose: 150 mls/hr Sodium Chloride (Saline Flush) 10 ml FLUSH ASDIRECTED PRN PRN Reason: Keep Vein Open Sodium Chloride (Saline Flush) 2.5 ml FLUSH ASDIRECTED PRN PRN Reason: Keep Vein Open Discontinued Medications Acetaminophen (Tylenol Extra Strength) 1,000 mg PO ONETIME ONE Stop: 03/25/19 00:00 Last Admin: 03/25/19 00:04 Dose: 1,000 mg Fentanyl (Sublimaze) Confirm Administered Dose 250 mcg .ROUTE .STK-MED ONE Stop: 03/25/19 07:01 Sodium Chloride (Normal Saline) 1,000 mls @ 999 mls/hr IV STAT ONE Stop: 03/25/19 00:59 Last Admin: 03/25/19 00:04 Dose: 999 mls/hr Sodium Chloride (Normal Saline) 1,000 mls @ 999 mls/hr IV .Bolus ONE Stop: 03/25/19 01:47 Last Admin: 03/25/19 00:48 Dose: 999 mls/hr Piperacillin Sod/Tazobactam (Sod 4.5 gm/ Sodium Chloride) 100 mls @ 100 mls/hr IV ONETIME ONE Stop: 03/25/19 02:08 Last Admin: 03/25/19 01:20 Dose: 100 mls/hr Clindamycin Phosphate 900 mg/ (Premix) 50 mls @ 100 mls/hr IV ONETIME ONE Stop: 03/25/19 03:45 Last Admin: 03/25/19 03:32 Dose: 100 mls/hr Bupivacaine HCl/Epinephrine Bitart (Sensorc Mpf 0.25%-Epi 1:[id number]) Confirm Administered Dose 30 mls @ as directed .ROUTE .STK-MED ONE Stop: 03/25/19 07:23 Ibuprofen (Motrin) 800 mg PO ONETIME ONE Stop: 03/25/19 00:50 Last Admin: 03/25/19 00:53 Dose: 800 mg Insulin Human Regular (Novolin R) 8 unit SUBCUT ONETIME ONE; Protocol Stop: 03/25/19 02:17 Last Admin: 03/25/19 02:24 Dose: 6 units Iopamidol (Isovue-370 (76%)) 100 ml IVPUSH ONETIME STA Stop: 03/25/19 01:17 Last Admin: 03/25/19 01:28 Dose: 100 ml Ketorolac Tromethamine (Toradol) 30 mg IVPUSH ONETIME ONE Stop: 03/25/19 00:26 Last Admin: 03/25/19 00:36 Dose: 30 mg Lidocaine (Xylocaine-Mpf 2%) Confirm Administered Dose 5 ml .ROUTE .STK-MED ONE Stop: 03/25/19 07:01 Midazolam HCl (Versed 1 Mg/Ml) Confirm Administered Dose 2 mg .ROUTE .STK-MED ONE Stop: 03/25/19 07:00 Morphine Sulfate (Morphine) 4 mg IVPUSH ONETIME ONE Stop: 03/25/19 00:26 Last Admin: 03/25/19 00:37 Dose: 4 mg Morphine Sulfate (Morphine) 4 mg IVPUSH ONETIME ONE Stop: 03/25/19 01:42 Last Admin: 03/25/19 01:47 Dose: 4 mg Ondansetron HCl (Zofran) 4 mg IVPUSH ONETIME ONE Stop: 03/25/19 00:26 Last Admin: 03/25/19 00:37 Dose: 4 mg Ondansetron HCl (Zofran) Confirm Administered Dose 4 mg .ROUTE .STK-MED ONE Stop: 03/25/19 07:01 Phenylephrine HCl (Phenylephrine In Ns 100 Mcg/Ml) Confirm Administered Dose 1 mg .ROUTE .STK-MED ONE Stop: 03/25/19 08:06 Propofol (Diprivan 20 Ml) Confirm Administered Dose 200 mg .ROUTE .STK-MED ONE Stop: 03/25/19 07:00 Propofol (Diprivan 20 Ml) Confirm Administered Dose 200 mg .ROUTE .STK-MED ONE Stop: 03/25/19 07:38 Rocuronium [place] (Zemuron) Confirm Administered Dose 100 mg .ROUTE .STK-MED ONE Stop: 03/25/19 07:01
[2019-03-25] MEDS ORDERED: EPINEPHrine 1:10,000 1 MG/10 ML Syringe IVPUSH PRN (08:29)
[2019-03-25] MEDS ORDERED: fentaNYL 100 MCG/2 ML SDV IVPUSH PRN (08:29)
[2019-03-25] MEDS ORDERED: 50% Dextrose in Water 50 ML Syringe IVPUSH PRN (08:29)
[2019-03-25] MEDS ORDERED: Naloxone 0.4 MG/ML Syringe IVPUSH PRN (08:29)
[2019-03-25] MEDS ORDERED: Albuterol 0.083% 2.5 MG/3 ML Neb Soln NEB PRN (08:29)
[2019-03-25] MEDS ORDERED: Atropine 0.1 MG/ML 10 ML Syringe IVPUSH PRN ×2 (08:29)
--- NOTE | 2019-03-25 08:39 | PCM.POSTAN ---
POST ANESTHESIA ASSESSMENT - MENTAL STATUS Mental Status: Alert, Oriented - VITAL SIGNS Vital Signs: Last Vital Signs Temp 97.4 F 03/25/19 07:33 Pulse 137 H 03/25/19 07:33 Resp 20 03/25/19 07:33 BP 118/64 03/25/19 07:33 Pulse Ox 95 03/25/19 07:33 - RESPIRATORY Respiratory Status: Respiratory Rate WNL, Airway Patent, O2 Saturation Stable - CARDIOVASCULAR CV Status: Blood Pressure Stable, Elevated Pulse Rate - GASTROINTESTINAL GI Status: No Symptoms - PAIN Pain Score: 1 - POST OP HYDRATION Hydration Status: Adequate & Stable - OBSERVATIONS Free Text/Narrative:: HR 120-140's intra-op and hypotension SBP 70-80's. Case was performed under MAC. Minimally responsive to phenylephrine bolus and LR fluid bolus. Pt is currently awake. HR remains 110-125, SBP 100's. CBC, BMP, MAG, Lactate redraw ordered for now, Concerning for sepsis. I spoke with Dr Peralta and Cassie MAINTENANCE INSTRUCTOR who are aware.
--- NOTE | 2019-03-25 09:02 | PCM.OPNOTE ---
- General Post-Op/Procedure Note Date of Surgery/Procedure: 03/25/19 Operative Procedure(s): i/d perirectal abscess Findings: large amt stink smelly foul smelling liquid necrosis, 150 cc; [id number] Pre Op Diagnosis: perirectal abscess Post-Op Diagnosis: Same Anesthesia Technique: General Mask, Local Primary Surgeon: Saúl Peralta Pathology: sent, aerobic and anaerobic, cells; also bx Complications: None Condition: Stable Free Text/Narrative:: Intake & Output 03/24/19 03/25/19 03/25/19 22:59 06:59 14:59 Intake Total 1300 Balance 1300
[2019-03-25 09:12] LABS: BLOOD UREA NITROGEN,BUN 8 mg/dL (7.0-18.0); CARBON DIOXIDE,CO2 24.8 mmol/L (21.0-32.0); CHLORIDE,CL 105 mmol/L (98-107); GLUCOSE RANDOM 233 mg/dL (74-106); POTASSIUM,K 4.1 mmol/L (3.5-5.1); SODIUM,NA 142 mmol/L (136-145)
[2019-03-25] MEDS ORDERED: Clindamycin Phosphate in D5W 300 MG in Premix Bag 1 BAG IV SCH ×2 (09:15)
[2019-03-25] MEDS: Sodium Chloride 0.9% 1,000 ML IV SCH ×2 (09:35→17:45)
[2019-03-25] MEDS: Piperacillin/Tazobactam 4.5 GM in Sodium Chloride 0.9% 100 ML IV SCH ×3 (10:00→21:59)
[2019-03-25] MEDS ORDERED: Magnesium Sulfate/Water 2 GM in Premix Bag 1 BAG IV ONE (11:02)
[2019-03-25] MEDS ORDERED: Insulin Aspart 100 Units/ML 3 ML Pen SUBCUT SCH (11:30)
[2019-03-25] MEDS: Vancomycin 2 GM in Sodium Chloride 0.9% 500 ML IV SCH (12:23)
--- NOTE | 2019-03-25 12:35 | OR ---
SURGEON: Saúl Peralta MD DATE OF PROCEDURE: 03/25/2019 PREOPERATIVE DIAGNOSIS: Perirectal abscess. POSTOPERATIVE DIAGNOSIS: Perirectal abscess. PROCEDURE PERFORMED: Incision and drainage, exploration of perirectal abscess. PRIMARY SURGEON: Saúl Peralta MD. COMPLICATIONS: None. FINDINGS: Close to about 100 mL of foul-smelling necrosis, very very foul smelling, and wound was then packed. Incision is 3 cm and the cavity inside is likely to be at least a diameter of 10 to 12 cm with both tunnel up and tunnel down. DESCRIPTION OF PROCEDURE: The patient was taken to the operating room and placed in the right decubitus position and mild general anesthesia was given. The perineum area was prepped and draped in a sterile fashion. Time-out was being called, the patient identified, procedure identified, and round the clock antibiotic had been given. Procedure then started. The local area was infiltrated with 0.25% Marcaine with epi, and using 11 blade, incision right at the fluctuance point resulted in a gushing like a fountain of very foul-smelling liquid necrosis. This was then followed with surgeon's finger, dislodged all the loculation and from palpation to the healthy tissue. Incision was about 3 cm and biopsies done and Gram stain and C and S sent. Inside the cavity was at least 10 to 12 cm with at least a tunnel down and a tunnel up. Extensive irrigation, packed with 2-inch gauze and followed by appropriate dressing. The patient was awakened, transferred to recovery room in hemodynamically stable condition. During the procedure, the patient was a little bit hypotensive and also at a point tachycardic to 102 to 103. Recommend to continue with IV clindamycin and wound dressing change once a day. If discharged, the patient likely may need home health care for the wound. We will follow the patient with you. ALLEN / LINDSEY /[id number]
[2019-03-25] MEDS: Acetaminophen/oxyCODONE 325-10 MG Tab PO PRN ×2 (14:21→23:05)
[2019-03-25] MEDS ORDERED: Sodium Chloride 0.9% 500 ML IV SCH (16:45)
[2019-03-25] MEDS: Insulin Aspart 100 Units/ML 3 ML Pen SUBCUT SCH (17:51)
[2019-03-25] MEDS: Acetaminophen 325 MG Tab PO PRN (18:44)
[2019-03-25] MEDS: Insulin Glargine,Human Rec. Analog 100 Units/ML 3 ML Pen SUBCUT SCH (21:57)
[2019-03-26] MEDS: Sodium Chloride 0.9% 1,000 ML IV SCH ×2 (02:05→16:54)
[2019-03-26] MEDS: Vancomycin 2 GM in Sodium Chloride 0.9% 500 ML IV SCH ×3 (02:58→13:38)
[2019-03-26] MEDS: Piperacillin/Tazobactam 4.5 GM in Sodium Chloride 0.9% 100 ML IV SCH ×2 (05:01→10:01)
[2019-03-26 05:45] LABS: BLOOD UREA NITROGEN,BUN 4 mg/dL (7.0-18.0); CARBON DIOXIDE,CO2 27.2 mmol/L (21.0-32.0); CHLORIDE,CL 106 mmol/L (98-107); GLUCOSE RANDOM 182 mg/dL (74-106); POTASSIUM,K 3.9 mmol/L (3.5-5.1); SODIUM,NA 142 mmol/L (136-145)
[2019-03-26] MEDS: Insulin Aspart 100 Units/ML 3 ML Pen SUBCUT SCH ×3 (07:52→17:38)
[2019-03-26] MEDS: Acetaminophen/oxyCODONE 325-10 MG Tab PO PRN ×2 (08:14→19:33)
--- NOTE | 2019-03-26 08:41 | PCM.PN ---
<Ann Johnson - Last Filed: 03/26/19 12:05> - General Info Date of Service: 03/26/19 Subjective Update: Patient underwent I&D for perirectal abscess. No fevers and white count improving. Patient complains of pain at the site. Eating and drinking fine. - Review of Systems General: Reports: No Symptoms HEENT: Reports: No Symptoms Pulmonary: Reports: No Symptoms Cardiovascular: Reports: No Symptoms Gastrointestinal: Reports: No Symptoms Genitourinary: Reports: No Symptoms Neurological: Reports: No Symptoms Psychiatric: Reports: No Symptoms - Patient Data Vitals - Most Recent: Last Vital Signs Temp 98.8 F 03/26/19 08:00 Pulse 104 H 03/26/19 08:00 Resp 16 03/26/19 08:00 BP 137/81 03/26/19 08:00 Pulse Ox 94 L 03/26/19 08:00 Weight - Most Recent: 140.886 kg I&O - Last 24 Hours: Intake & Output 03/25/19 03/26/19 03/26/19 22:59 06:59 14:59 Intake Total 1650 2330 Output Total 300 700 Balance 1350 1630 Lab Results Last 24 Hours: Laboratory Results - last 24 hr 03/25/19 03/25/19 03/25/19 Range/Units 08:35 08:46 08:46 WBC (4.0-11.0) K/uL RBC (4.30-5.90) M/uL Hgb (12.0-16.0) g/dL Hct (36.0-46.0) % MCV (80.0-98.0) fL MCH (27.0-32.0) pg MCHC (31.0-37.0) g/dL RDW Std Deviation (28.0-62.0) fl RDW Coeff of Jocy (11.0-15.0) % Plt Count (150-400) K/uL MPV (7.40-12.00) fL Neut % (Auto) (48.0-80.0) % Lymph % (Auto) (16.0-40.0) % [place] % (Auto) (0.0-15.0) % Eos % (Auto) (0.0-7.0) % Baso % (Auto) (0.0-1.5) % Neut # (Auto) (1.4-5.7) K/uL Lymph # (Auto) (0.6-2.4) K/uL [place] # (Auto) (0.0-0.8) K/uL Eos # (Auto) (0.0-0.7) K/uL Baso # (Auto) (0.0-0.1) K/uL Nucleated RBC % /100WBC Nucleated RBCs # K/uL Lactate 1.3 (0.20-2.00) mmol/L Sodium 142 (136-145) mmol/L Potassium 4.1 (3.5-5.1) mmol/L Chloride 105 (98-107) mmol/L Carbon Dioxide 24.8 (21.0-32.0) mmol/L BUN 8 (7.0-18.0) mg/dL Creatinine 0.9 (0.6-1.0) mg/dL Est Cr Clr Drug Dosing 99.37 mL/min Estimated GFR (MDRD) > 60.0 ml/min Glucose 233 H (74-106) mg/dL POC Glucose 219 H (60-110) mg/dL Calcium 8.4 L (8.5-10.1) mg/dL Magnesium 1.5 L (1.8-2.4) mg/dL Triglycerides (0-200) mg/dL Cholesterol (50-200) mg/dL LDL Cholesterol, Calc (60-180) mg/dL VLDL Cholesterol (5-55) mg/dL HDL Cholesterol (40-60) mg/dL Cholesterol/HDL Ratio (3.3-6.0) TSH 3rd Generation (0.36-3.74) uIU/mL 03/25/19 03/25/19 03/25/19 Range/Units 08:46 12:05 17:48 WBC 17.43 H (4.0-11.0) K/uL RBC 4.61 (4.30-5.90) M/uL Hgb 13.4 (12.0-16.0) g/dL Hct 40.3 (36.0-46.0) % MCV 87.4 (80.0-98.0) fL MCH 29.1 (27.0-32.0) pg MCHC 33.3 (31.0-37.0) g/dL RDW Std Deviation 42.5 (28.0-62.0) fl RDW Coeff of Jocy 13 (11.0-15.0) % Plt Count 243 (150-400) K/uL MPV 9.90 (7.40-12.00) fL Neut % (Auto) 72.6 (48.0-80.0) % Lymph % (Auto) 16.8 (16.0-40.0) % [place] % (Auto) 9.5 (0.0-15.0) % Eos % (Auto) 0.9 (0.0-7.0) % Baso % (Auto) 0.2 (0.0-1.5) % Neut # (Auto) 12.7 H (1.4-5.7) K/uL Lymph # (Auto) 2.9 H (0.6-2.4) K/uL [place] # (Auto) 1.7 H (0.0-0.8) K/uL Eos # (Auto) 0.2 (0.0-0.7) K/uL Baso # (Auto) 0.0 (0.0-0.1) K/uL Nucleated RBC % 0.0 /100WBC Nucleated RBCs # 0 K/uL Lactate (0.20-2.00) mmol/L Sodium (136-145) mmol/L Potassium (3.5-5.1) mmol/L Chloride (98-107) mmol/L Carbon Dioxide (21.0-32.0) mmol/L BUN (7.0-18.0) mg/dL Creatinine (0.6-1.0) mg/dL Est Cr Clr Drug Dosing mL/min Estimated GFR (MDRD) ml/min Glucose (74-106) mg/dL POC Glucose 226 H 231 H (60-110) mg/dL Calcium (8.5-10.1) mg/dL Magnesium (1.8-2.4) mg/dL Triglycerides (0-200) mg/dL Cholesterol (50-200) mg/dL LDL Cholesterol, Calc (60-180) mg/dL VLDL Cholesterol (5-55) mg/dL HDL Cholesterol (40-60) mg/dL Cholesterol/HDL Ratio (3.3-6.0) TSH 3rd Generation (0.36-3.74) uIU/mL 03/25/19 03/26/19 03/26/19 Range/Units 21:08 05:08 05:08 WBC 13.13 H (4.0-11.0) K/uL RBC 4.32 (4.30-5.90) M/uL Hgb 12.5 (12.0-16.0) g/dL Hct 38.0 (36.0-46.0) % MCV 88.0 (80.0-98.0) fL MCH 28.9 (27.0-32.0) pg MCHC 32.9 (31.0-37.0) g/dL RDW Std Deviation 43.2 (28.0-62.0) fl RDW Coeff of Jocy 13 (11.0-15.0) % Plt Count 249 (150-400) K/uL MPV 9.30 (7.40-12.00) fL Neut % (Auto) 75.5 (48.0-80.0) % Lymph % (Auto) 15.3 L (16.0-40.0) % [place] % (Auto) 6.0 (0.0-15.0) % Eos % (Auto) 2.9 (0.0-7.0) % Baso % (Auto) 0.3 (0.0-1.5) % Neut # (Auto) 9.9 H (1.4-5.7) K/uL Lymph # (Auto) 2.0 (0.6-2.4) K/uL [place] # (Auto) 0.8 (0.0-0.8) K/uL Eos # (Auto) 0.4 (0.0-0.7) K/uL Baso # (Auto) 0.0 (0.0-0.1) K/uL Nucleated RBC % 0.0 /100WBC Nucleated RBCs # 0 K/uL Lactate (0.20-2.00) mmol/L Sodium 142 (136-145) mmol/L Potassium 3.9 (3.5-5.1) mmol/L Chloride 106 (98-107) mmol/L Carbon Dioxide 27.2 (21.0-32.0) mmol/L BUN 4 L (7.0-18.0) mg/dL Creatinine 0.8 (0.6-1.0) mg/dL Est Cr Clr Drug Dosing 111.79 mL/min Estimated GFR (MDRD) > 60.0 ml/min Glucose 182 H (74-106) mg/dL POC Glucose 216 H (60-110) mg/dL Calcium 7.6 L (8.5-10.1) mg/dL Magnesium (1.8-2.4) mg/dL Triglycerides 122 (0-200) mg/dL Cholesterol 119 (50-200) mg/dL LDL Cholesterol, Calc 71 (60-180) mg/dL VLDL Cholesterol 24 (5-55) mg/dL HDL Cholesterol 24 L (40-60) mg/dL Cholesterol/HDL Ratio 5.0 (3.3-6.0) TSH 3rd Generation 1.85 (0.36-3.74) uIU/mL 03/26/19 Range/Units 06:19 WBC (4.0-11.0) K/uL RBC (4.30-5.90) M/uL Hgb (12.0-16.0) g/dL Hct (36.0-46.0) % MCV (80.0-98.0) fL MCH (27.0-32.0) pg MCHC (31.0-37.0) g/dL RDW Std Deviation (28.0-62.0) fl RDW Coeff of Jocy (11.0-15.0) % Plt Count (150-400) K/uL MPV (7.40-12.00) fL Neut % (Auto) (48.0-80.0) % Lymph % (Auto) (16.0-40.0) % [place] % (Auto) (0.0-15.0) % Eos % (Auto) (0.0-7.0) % Baso % (Auto) (0.0-1.5) % Neut # (Auto) (1.4-5.7) K/uL Lymph # (Auto) (0.6-2.4) K/uL Labette # (Auto) (0.0-0.8) K/uL Eos # (Auto) (0.0-0.7) K/uL Baso # (Auto) (0.0-0.1) K/uL Nucleated RBC % /100WBC Nucleated RBCs # K/uL Lactate (0.20-2.00) mmol/L Sodium (136-145) mmol/L Potassium (3.5-5.1) mmol/L Chloride (98-107) mmol/L Carbon Dioxide (21.0-32.0) mmol/L BUN (7.0-18.0) mg/dL Creatinine (0.6-1.0) mg/dL Est Cr Clr Drug Dosing mL/min Estimated GFR (MDRD) ml/min Glucose (74-106) mg/dL POC Glucose 161 H (60-110) mg/dL Calcium (8.5-10.1) mg/dL Magnesium (1.8-2.4) mg/dL Triglycerides (0-200) mg/dL Cholesterol (50-200) mg/dL LDL Cholesterol, Calc (60-180) mg/dL VLDL Cholesterol (5-55) mg/dL HDL Cholesterol (40-60) mg/dL Cholesterol/HDL Ratio (3.3-6.0) TSH 3rd Generation (0.36-3.74) uIU/mL [place] Results Last 24 Hours: Microbiology 03/25/19 00:12 Urine Culture - Final Urine, Clean Catch MIXED VIVIENNE >100,000 CFU/ML 03/25/19 00:25 Aerobic Blood Culture - Preliminary Blood - Venous - Lab Draw NO GROWTH AFTER 1 DAY Anaerobic Blood Culture - Preliminary NO GROWTH AFTER 1 DAY 03/25/19 00:05 Aerobic Blood Culture - Preliminary Blood - Venous NO GROWTH AFTER 1 DAY Anaerobic Blood Culture - Preliminary NO GROWTH AFTER 1 DAY 03/25/19 08:09 Gram Stain - Preliminary Perirectal Med Orders - Current: Current Medications Acetaminophen (Tylenol) 650 mg PO Q4H PRN PRN Reason: Pain (mild 1-3) Last Admin: 03/25/19 18:44 Dose: 650 mg Piperacillin Sod/Tazobactam (Sod 4.5 gm/ Sodium Chloride) 100 mls @ 100 mls/hr IV Q6H [facility] Last Admin: 03/26/19 05:01 Dose: 100 mls/hr Sodium Chloride (Normal Saline) 1,000 mls @ 150 mls/hr IV Q6H [facility] Last Admin: 03/26/19 02:05 Dose: 150 mls/hr Vancomycin HCl 2 gm/ Sodium (Chloride) 500 mls @ 250 mls/hr IV Q12H [facility] Last Admin: 03/26/19 02:58 Dose: 250 mls/hr Insulin Aspart (Novolog) 0 unit SUBCUT TIDAC [facility]; Protocol Last Admin: 03/26/19 07:52 Dose: 2 units Insulin Glargine (Lantus Solostar) 15 units SUBCUT BEDTIME [facility] Last Admin: 03/25/19 21:57 Dose: 15 units Morphine Sulfate (Morphine) 2 mg IVPUSH Q2H PRN PRN Reason: Pain Ondansetron HCl (Zofran) 4 mg IVPUSH Q4H PRN PRN Reason: Nausea Oxycodone/Acetaminophen (Percocet 325-10 Mg) 1 tab PO Q8H PRN PRN Reason: Pain Last Admin: 03/26/19 08:14 Dose: 1 tab Sodium Chloride (Saline Flush) 10 ml FLUSH ASDIRECTED PRN PRN Reason: Keep Vein Open Sodium Chloride (Saline Flush) 2.5 ml FLUSH ASDIRECTED PRN PRN Reason: Keep Vein Open Vancomycin HCl (Pharmacy To Dose - Vancomycin) 1 dose .XX ASDIRECTED [facility] Discontinued Medications Acetaminophen (Tylenol Extra Strength) 1,000 mg PO ONETIME ONE Stop: 03/25/19 00:00 Last Admin: 03/25/19 00:04 Dose: 1,000 mg Albuterol (Proventil Neb Soln) 2.5 mg NEB ONETIME PRN PRN Reason: Wheezing Atropine Sulfate (Atropine 0.1 Mg/Ml) 0.5 mg IVPUSH ASDIRECTED PRN PRN Reason: Hypo-perfusion Atropine Sulfate (Atropine 0.1 Mg/Ml) 1 mg IVPUSH ASDIRECTED PRN PRN Reason: Hypo-Perfusion Dextrose/Water (Dextrose 50% In Water) 50 ml IVPUSH ASDIRECTED PRN PRN Reason: Hypoglycemia Epinephrine HCl (Epinephrine 1:10,000) 1 mg IVPUSH ASDIRECTED PRN PRN Reason: ACLS Guidelines Fentanyl (Sublimaze) Confirm Administered Dose 250 mcg .ROUTE .STK-MED ONE Stop: 03/25/19 07:01 Fentanyl (Sublimaze) 50 - 100 mcg IVPUSH Q5M PRN PRN Reason: Pain Sodium Chloride (Normal Saline) 1,000 mls @ 999 mls/hr IV STAT ONE Stop: 03/25/19 00:59 Last Admin: 03/25/19 00:04 Dose: 999 mls/hr Sodium Chloride (Normal Saline) 1,000 mls @ 999 mls/hr IV .Bolus ONE Stop: 03/25/19 01:47 Last Admin: 03/25/19 00:48 Dose: 999 mls/hr Piperacillin Sod/Tazobactam (Sod 4.5 gm/ Sodium Chloride) 100 mls @ 100 mls/hr IV ONETIME ONE Stop: 03/25/19 02:08 Last Admin: 03/25/19 01:20 Dose: 100 mls/hr Sodium Chloride (Normal Saline) 1,000 mls @ 150 mls/hr IV ASDIRECTED [facility] Last Admin: 03/25/19 01:20 Dose: 150 mls/hr Clindamycin Phosphate 900 mg/ (Premix) 50 mls @ 100 mls/hr IV ONETIME ONE Stop: 03/25/19 03:45 Last Admin: 03/25/19 03:32 Dose: 100 mls/hr Bupivacaine HCl/Epinephrine Bitart (Sensorc Mpf 0.25%-Epi 1:520461) Confirm Administered Dose 30 mls @ as directed .ROUTE .STK-MED ONE Stop: 03/25/19 07:23 Clindamycin Phosphate 300 mg/ (Premix) 50 mls @ 150 mls/hr IV Q6H [facility] Vancomycin HCl 2 gm/ Sodium (Chloride) 500 mls @ 250 mls/hr IV Q12H [facility] Last Admin: 03/26/19 04:03 Dose: Not Given Magnesium Sulfate 2 gm/ Premix 50 mls @ 50 mls/hr IV ONETIME ONE Stop: 03/25/19 12:01 Last Admin: 03/25/19 11:15 Dose: 50 mls/hr Sodium Chloride (Normal Saline) 500 mls @ 999 mls/hr IV .BOLUS [facility] Last Admin: 03/25/19 16:56 Dose: 999 mls/hr Ibuprofen (Motrin) 800 mg PO ONETIME ONE Stop: 03/25/19 00:50 Last Admin: 03/25/19 00:53 Dose: 800 mg [facility]ulin [facility]) [facility] Last Admin: 03/25/19 12:22 Dose: 2 units Insulin Human Regular (Novolin R) 8 unit SUBCUT ONETIME ONE; Protocol Stop: 03/25/19 02:17 Last Admin: 03/25/19 02:24 Dose: 6 units Iopamidol (Isovue-370 (76%)) 100 ml IVPUSH ONETIME STA Stop: 03/25/19 01:17 Last Admin: 03/25/19 01:28 Dose: 100 ml Ketorolac Tromethamine (Toradol) 30 mg IVPUSH ONETIME ONE Stop: 03/25/19 00:26 Last Admin: 03/25/19 00:36 Dose: 30 mg Lidocaine (Xylocaine-Mpf 2%) Confirm Administered Dose 5 ml .ROUTE .STK-MED ONE Stop: 03/25/19 07:01 Midazolam HCl (Versed 1 Mg/Ml) Confirm Administered Dose 2 mg .ROUTE .STK-MED ONE Stop: 03/25/19 07:00 Morphine Sulfate (Morphine) 4 mg IVPUSH ONETIME ONE Stop: 03/25/19 00:26 Last Admin: 03/25/19 00:37 Dose: 4 mg Morphine Sulfate (Morphine) 4 mg IVPUSH ONETIME ONE Stop: 03/25/19 01:42 Last Admin: 03/25/19 01:47 Dose: 4 mg Naloxone HCl (Narcan) 0.1 mg IVPUSH ASDIRECTED PRN PRN Reason: Respiratory Depression Ondansetron HCl (Zofran) 4 mg IVPUSH ONETIME ONE Stop: 03/25/19 00:26 Last Admin: 03/25/19 00:37 Dose: 4 mg Ondansetron HCl (Zofran) Confirm Administered Dose 4 mg .ROUTE .STK-MED ONE Stop: 03/25/19 07:01 Phenylephrine HCl (Phenylephrine In Ns 100 Mcg/Ml) Confirm Administered Dose 1 mg .ROUTE .STK-MED ONE Stop: 03/25/19 08:06 Propofol (Diprivan 20 Ml) Confirm Administered Dose 200 mg .ROUTE .STK-MED ONE Stop: 03/25/19 07:00 Propofol (Diprivan 20 Ml) Confirm Administered Dose 200 mg .ROUTE .STK-MED ONE Stop: 03/25/19 07:38 Rocuronium [place] (Zemuron) Confirm Administered Dose 100 mg .ROUTE .STK-MED ONE Stop: 03/25/19 07:01 - Exam Quality Assessment: No: Supplemental Oxygen General: Alert, Oriented, Cooperative Lungs: Clear to Auscultation, Normal Respiratory Effort Cardiovascular: Regular Rate, Regular Rhythm GI/Abdominal Exam: Normal Bowel Sounds, Soft, Non-Tender, No Distention Extremities: No Pedal Edema Neurological: No New Focal Deficit Psy/Mental Status: Alert, Normal Affect, Normal Mood Sepsis Event Note - Evaluation Sepsis Screening Result: Sepsis Risk - Focused Exam Vital Signs: Vital Signs Temp Pulse Resp BP Pulse Ox 03/26/19 08:00 98.8 F 104 H 16 137/81 94 L 03/26/19 04:49 99 F 100 16 112/56 L 97 03/26/19 01:30 98 F 90 16 115/62 97 Date Exam was Performed: 03/26/19 Time Exam was Performed: 12:05 - Problem List Review Problem List Initiated/Reviewed/Updated: Yes - Plan Plan:: This 33 year old female admitted with sepsis secondary to prei-rectal abscess, Dr Peralta consulted for I&D 1. Perirectal abscess: No further fever or tachycardia. WBC improving, down from 17-13. Monitor closely. Wound culture growing gram positive cocci in pairs and clusters as well as gram negative rods. Continue Vancomycin but switch Zosyn to Rocephin. Pain with IV and oral agents. 2. Dm type 2: new onset, SSI Novolog, Lantus 15 at bedtime, accuchecks. HA1c was 9.6. DNE as outpatient. VTE prophylaxis: SCDs and ambulation DIspo; 1-3 days <Lai Gauthier - Last Filed: 04/04/19 16:32> - Patient Data Vitals - Most Recent: Last Vital Signs Temp 36.4 C 03/31/19 11:26 Pulse 68 03/31/19 11:26 Resp 16 03/31/19 11:26 BP 127/70 03/31/19 11:26 Pulse Ox 95 03/31/19 11:26 Med Orders - Current: Current Medications Discontinued Medications Acetaminophen (Tylenol Extra Strength) 1,000 mg PO ONETIME ONE Stop: 03/25/19 00:00 Last Admin: 03/25/19 00:04 Dose: 1,000 mg Acetaminophen (Tylenol) 650 mg PO Q4H PRN PRN Reason: Pain (mild 1-3) Last Admin: 03/26/19 15:17 Dose: 650 mg Albuterol (Proventil Neb Soln) 2.5 mg NEB ONETIME PRN PRN Reason: Wheezing Atropine Sulfate (Atropine 0.1 Mg/Ml) 0.5 mg IVPUSH ASDIRECTED PRN PRN Reason: Hypo-perfusion Atropine Sulfate (Atropine 0.1 Mg/Ml) 1 mg IVPUSH ASDIRECTED PRN PRN Reason: Hypo-Perfusion Dextrose/Water (Dextrose 50% In Water) 50 ml IVPUSH ASDIRECTED PRN PRN Reason: Hypoglycemia Docusate Sodium (Colace) 100 mg PO BID PRN PRN Reason: Constipation Last Admin: 03/26/19 14:01 Dose: 100 mg Epinephrine HCl (Epinephrine 1:10,000) 1 mg IVPUSH ASDIRECTED PRN PRN Reason: ACLS Guidelines Fentanyl (Sublimaze) Confirm Administered Dose 250 mcg .ROUTE .STK-MED ONE Stop: 03/25/19 07:01 Fentanyl (Sublimaze) 50 - 100 mcg IVPUSH Q5M PRN PRN Reason: Pain Sodium Chloride (Normal Saline) 1,000 mls @ 999 mls/hr IV STAT ONE Stop: 03/25/19 00:59 Last Admin: 03/25/19 00:04 Dose: 999 mls/hr Sodium Chloride (Normal Saline) 1,000 mls @ 999 mls/hr IV .Bolus ONE Stop: 03/25/19 01:47 Last Admin: 03/25/19 00:48 Dose: 999 mls/hr Piperacillin Sod/Tazobactam (Sod 4.5 gm/ Sodium Chloride) 100 mls @ 100 mls/hr IV ONETIME ONE Stop: 03/25/19 02:08 Last Admin: 03/25/19 01:20 Dose: 100 mls/hr Sodium Chloride (Normal Saline) 1,000 mls @ 150 mls/hr IV ASDIRECTED [facility] Last Admin: 03/25/19 01:20 Dose: 150 mls/hr Clindamycin Phosphate 900 mg/ (Premix) 50 mls @ 100 mls/hr IV ONETIME ONE Stop: 03/25/19 03:45 Last Admin: 03/25/19 03:32 Dose: 100 mls/hr Bupivacaine HCl/Epinephrine Bitart (Sensorc Mpf 0.25%-Epi 1:033698) Confirm Administered Dose 30 mls @ as directed .ROUTE .STK-MED ONE Stop: 03/25/19 07:23 Clindamycin Phosphate 300 mg/ (Premix) 50 mls @ 150 mls/hr IV Q6H [facility] Piperacillin Sod/Tazobactam (Sod 4.5 gm/ Sodium Chloride) 100 mls @ 100 mls/hr IV Q6H [facility] Last Admin: 03/26/19 10:01 Dose: 100 mls/hr Sodium Chloride (Normal Saline) 1,000 mls @ 150 mls/hr IV Q6H [facility] Last Admin: 03/26/19 16:54 Dose: Not Given Vancomycin HCl 2 gm/ Sodium (Chloride) 500 mls @ 250 mls/hr IV Q12H [facility] Last Admin: 03/26/19 04:03 Dose: Not Given Magnesium Sulfate 2 gm/ Premix 50 mls @ 50 mls/hr IV ONETIME ONE Stop: 03/25/19 12:01 Last Admin: 03/25/19 11:15 Dose: 50 mls/hr Sodium Chloride (Normal Saline) 500 mls @ 999 mls/hr IV .BOLUS [facility] Last Admin: 03/25/19 16:56 Dose: 999 mls/hr Vancomycin HCl 2 gm/ Sodium (Chloride) 500 mls @ 250 mls/hr IV Q12H [facility] Last Admin: 03/27/19 02:30 Dose: 250 mls/hr Ceftriaxone Sodium/Dextrose 2 (gm/ Premix) 50 mls @ 100 mls/hr IV Q24H [facility] Last Admin: 03/31/19 09:55 Dose: 100 mls/hr Sodium Chloride (Normal Saline) 1,000 mls @ 125 mls/hr IV ASDIRECTED [facility] Last Admin: 03/27/19 09:09 Dose: 125 mls/hr Metronidazole 500 mg/ Premix 100 mls @ 100 mls/hr IV QID [facility] Last Admin: 03/31/19 13:00 Dose: Not Given Ibuprofen (Motrin) 800 mg PO ONETIME ONE Stop: 03/25/19 00:50 Last Admin: 03/25/19 00:53 Dose: 800 mg Insulin Aspart (Novolog) 0 unit SUBCUT TIDAC [facility]; Protocol Last Admin: 03/25/19 12:22 Dose: 2 units Insulin Aspart (Novolog) 0 unit SUBCUT TIDAC [facility]; Protocol Last Admin: 03/31/19 11:48 Dose: Not Given Insulin Glargine (Lantus Solostar) 15 units SUBCUT BEDTIME [facility] Last Admin: 03/26/19 21:42 Dose: 15 units Insulin Glargine (Lantus Solostar) 17 units SUBCUT BEDTIME [facility] Last Admin: 03/30/19 21:00 Dose: 17 units Insulin Human Regular (Novolin R) 8 unit SUBCUT ONETIME ONE; Protocol Stop: 03/25/19 02:17 Last Admin: 03/25/19 02:24 Dose: 6 units Iopamidol (Isovue-370 (76%)) 100 ml IVPUSH ONETIME STA Stop: 03/25/19 01:17 Last Admin: 03/25/19 01:28 Dose: 100 ml Ketorolac Tromethamine (Toradol) 30 mg IVPUSH ONETIME ONE Stop: 03/25/19 00:26 Last Admin: 03/25/19 00:36 Dose: 30 mg Lidocaine (Xylocaine-Mpf 2%) Confirm Administered Dose 5 ml .ROUTE .STK-MED ONE Stop: 03/25/19 07:01 Midazolam HCl (Versed 1 Mg/Ml) Confirm Administered Dose 2 mg .ROUTE .STK-MED ONE Stop: 03/25/19 07:00 Morphine Sulfate (Morphine) 4 mg IVPUSH ONETIME ONE Stop: 03/25/19 00:26 Last Admin: 03/25/19 00:37 Dose: 4 mg Morphine Sulfate (Morphine) 4 mg IVPUSH ONETIME ONE Stop: 03/25/19 01:42 Last Admin: 03/25/19 01:47 Dose: 4 mg Morphine Sulfate (Morphine) 2 mg IVPUSH Q2H PRN PRN Reason: Pain Last Admin: 03/26/19 17:34 Dose: 2 mg Naloxone HCl (Narcan) 0.1 mg IVPUSH ASDIRECTED PRN PRN Reason: Respiratory Depression Ondansetron HCl (Zofran) 4 mg IVPUSH ONETIME ONE Stop: 03/25/19 00:26 Last Admin: 03/25/19 00:37 Dose: 4 mg Ondansetron HCl (Zofran) Confirm Administered Dose 4 mg .ROUTE .STK-MED ONE Stop: 03/25/19 07:01 Ondansetron HCl (Zofran) 4 mg IVPUSH Q4H PRN PRN Reason: Nausea Last Admin: 03/27/19 02:36 Dose: 4 mg Oxycodone/Acetaminophen (Percocet 325-10 Mg) 1 tab PO Q8H PRN PRN Reason: Pain Last Admin: 03/27/19 03:33 Dose: 1 tab Phenylephrine HCl (Phenylephrine In Ns 100 Mcg/Ml) Confirm Administered Dose 1 mg .ROUTE .STK-MED ONE Stop: 03/25/19 08:06 Potassium Chloride (Klor-Con M20) 40 meq PO ONETIME ONE Stop: 03/29/19 10:21 Last Admin: 03/29/19 10:45 Dose: 40 meq Propofol (Diprivan 20 Ml) Confirm Administered Dose 200 mg .ROUTE .STK-MED ONE Stop: 03/25/19 07:00 Propofol (Diprivan 20 Ml) Confirm Administered Dose 200 mg .ROUTE .STK-MED ONE Stop: 03/25/19 07:38 Rocuronium [place] (Zemuron) Confirm Administered Dose 100 mg .ROUTE .STK-MED ONE Stop: 03/25/19 07:01 Sodium Chloride (Saline Flush) 10 ml FLUSH ASDIRECTED PRN PRN Reason: Keep Vein Open Sodium Chloride (Saline Flush) 2.5 ml FLUSH ASDIRECTED PRN PRN Reason: Keep Vein Open Vancomycin HCl (Pharmacy To Dose - Vancomycin) 1 dose .XX ASDIRECTED GOLDY - Plan Plan:: I have seen and evaluated the patient and agree with the residents note unless specified in my note
[2019-03-26] MEDS: Acetaminophen 325 MG Tab PO PRN ×2 (10:32→15:17)
[2019-03-26] MEDS: cefTRIAXone 2 GM in Premix Bag 1 BAG IV SCH (11:22)
[2019-03-26] MEDS: Morphine 2 MG/ML Syringe IVPUSH PRN ×2 (12:34→17:34)
[2019-03-26] MEDS ORDERED: Docusate Sodium 100 MG Cap PO PRN (13:31)
--- NOTE | 2019-03-26 13:50 | PCM.SURGPN ---
- General Info Date of Service: 03/26/19 - Review of Systems General: Reports: No Symptoms - Patient Data Vitals - Most Recent: Last Vital Signs Temp 98.8 F 03/26/19 08:00 Pulse 104 H 03/26/19 08:00 Resp 16 03/26/19 08:00 BP 137/81 03/26/19 08:00 Pulse Ox 94 L 03/26/19 08:00 Weight - Most Recent: 310 lb 9.6 oz I&O - Last 24 Hours: Intake & Output 03/25/19 03/26/19 03/26/19 22:59 06:59 14:59 Intake Total 1650 2330 Output Total 300 700 Balance 1350 1630 Lab Results Last 24 Hrs: Laboratory Results - last 24 hr 03/25/19 03/25/19 03/26/19 Range/Units 17:48 21:08 05:08 WBC 13.13 H (4.0-11.0) K/uL RBC 4.32 (4.30-5.90) M/uL Hgb 12.5 (12.0-16.0) g/dL Hct 38.0 (36.0-46.0) % MCV 88.0 (80.0-98.0) fL MCH 28.9 (27.0-32.0) pg MCHC 32.9 (31.0-37.0) g/dL RDW Std Deviation 43.2 (28.0-62.0) fl RDW Coeff of Jocy 13 (11.0-15.0) % Plt Count 249 (150-400) K/uL MPV 9.30 (7.40-12.00) fL Neut % (Auto) 75.5 (48.0-80.0) % Lymph % (Auto) 15.3 L (16.0-40.0) % [place] % (Auto) 6.0 (0.0-15.0) % Eos % (Auto) 2.9 (0.0-7.0) % Baso % (Auto) 0.3 (0.0-1.5) % Neut # (Auto) 9.9 H (1.4-5.7) K/uL Lymph # (Auto) 2.0 (0.6-2.4) K/uL [place] # (Auto) 0.8 (0.0-0.8) K/uL Eos # (Auto) 0.4 (0.0-0.7) K/uL Baso # (Auto) 0.0 (0.0-0.1) K/uL Nucleated RBC % 0.0 /100WBC Nucleated RBCs # 0 K/uL Sodium (136-145) mmol/L Potassium (3.5-5.1) mmol/L Chloride (98-107) mmol/L Carbon Dioxide (21.0-32.0) mmol/L BUN (7.0-18.0) mg/dL Creatinine (0.6-1.0) mg/dL Est Cr Clr Drug Dosing mL/min Estimated GFR (MDRD) ml/min Glucose (74-106) mg/dL POC Glucose 231 H 216 H (60-110) mg/dL Calcium (8.5-10.1) mg/dL Triglycerides (0-200) mg/dL Cholesterol (50-200) mg/dL LDL Cholesterol, Calc (60-180) mg/dL VLDL Cholesterol (5-55) mg/dL HDL Cholesterol (40-60) mg/dL Cholesterol/HDL Ratio (3.3-6.0) TSH 3rd Generation (0.36-3.74) uIU/mL 03/26/19 03/26/19 03/26/19 Range/Units 05:08 06:19 11:42 WBC (4.0-11.0) K/uL RBC (4.30-5.90) M/uL Hgb (12.0-16.0) g/dL Hct (36.0-46.0) % MCV (80.0-98.0) fL MCH (27.0-32.0) pg MCHC (31.0-37.0) g/dL RDW Std Deviation (28.0-62.0) fl RDW Coeff of Jocy (11.0-15.0) % Plt Count (150-400) K/uL MPV (7.40-12.00) fL Neut % (Auto) (48.0-80.0) % Lymph % (Auto) (16.0-40.0) % [place] % (Auto) (0.0-15.0) % Eos % (Auto) (0.0-7.0) % Baso % (Auto) (0.0-1.5) % Neut # (Auto) (1.4-5.7) K/uL Lymph # (Auto) (0.6-2.4) K/uL [place] # (Auto) (0.0-0.8) K/uL Eos # (Auto) (0.0-0.7) K/uL Baso # (Auto) (0.0-0.1) K/uL Nucleated RBC % /100WBC Nucleated RBCs # K/uL Sodium 142 (136-145) mmol/L Potassium 3.9 (3.5-5.1) mmol/L Chloride 106 (98-107) mmol/L Carbon Dioxide 27.2 (21.0-32.0) mmol/L BUN 4 L (7.0-18.0) mg/dL Creatinine 0.8 (0.6-1.0) mg/dL Est Cr Clr Drug Dosing 111.79 mL/min Estimated GFR (MDRD) > 60.0 ml/min Glucose 182 H (74-106) mg/dL POC Glucose 161 H 178 H (60-110) mg/dL Calcium 7.6 L (8.5-10.1) mg/dL Triglycerides 122 (0-200) mg/dL Cholesterol 119 (50-200) mg/dL LDL Cholesterol, Calc 71 (60-180) mg/dL VLDL Cholesterol 24 (5-55) mg/dL HDL Cholesterol 24 L (40-60) mg/dL Cholesterol/HDL Ratio 5.0 (3.3-6.0) TSH 3rd Generation 1.85 (0.36-3.74) uIU/mL [place] Results Last 24 Hrs: Microbiology 03/25/19 00:12 Urine Culture - Final Urine, Clean Catch MIXED VIVIENNE >100,000 CFU/ML 03/25/19 00:25 Aerobic Blood Culture - Preliminary Blood - Venous - Lab Draw NO GROWTH AFTER 1 DAY Anaerobic Blood Culture - Preliminary NO GROWTH AFTER 1 DAY 03/25/19 00:05 Aerobic Blood Culture - Preliminary Blood - Venous NO GROWTH AFTER 1 DAY Anaerobic Blood Culture - Preliminary NO GROWTH AFTER 1 DAY 03/25/19 08:09 Gram Stain - Preliminary Perirectal Med Orders - Current: Current Medications Acetaminophen (Tylenol) 650 mg PO Q4H PRN PRN Reason: Pain (mild 1-3) Last Admin: 03/26/19 10:32 Dose: 650 mg Docusate Sodium (Colace) 100 mg PO BID PRN PRN Reason: Constipation Vancomycin HCl 2 gm/ Sodium (Chloride) 500 mls @ 250 mls/hr IV Q12H [facility] Last Admin: 03/26/19 13:38 Dose: 250 mls/hr Ceftriaxone Sodium/Dextrose 2 (gm/ Premix) 50 mls @ 100 mls/hr IV Q24H [facility] Last Admin: 03/26/19 11:22 Dose: 100 mls/hr Insulin Aspart (Novolog) 0 unit SUBCUT TIDAC [facility]; Protocol Last Admin: 03/26/19 12:38 Dose: 2 units Insulin Glargine (Lantus Solostar) 15 units SUBCUT BEDTIME [facility] Last Admin: 03/25/19 21:57 Dose: 15 units Morphine Sulfate (Morphine) 2 mg IVPUSH Q2H PRN PRN Reason: Pain Last Admin: 03/26/19 12:34 Dose: 2 mg Ondansetron HCl (Zofran) 4 mg IVPUSH Q4H PRN PRN Reason: Nausea Oxycodone/Acetaminophen (Percocet 325-10 Mg) 1 tab PO Q8H PRN PRN Reason: Pain Last Admin: 03/26/19 08:14 Dose: 1 tab Sodium Chloride (Saline Flush) 10 ml FLUSH ASDIRECTED PRN PRN Reason: Keep Vein Open Sodium Chloride (Saline Flush) 2.5 ml FLUSH ASDIRECTED PRN PRN Reason: Keep Vein Open Vancomycin HCl (Pharmacy To Dose - Vancomycin) 1 dose .XX ASDIRECTED [facility] Discontinued Medications Acetaminophen (Tylenol Extra Strength) 1,000 mg PO ONETIME ONE Stop: 03/25/19 00:00 Last Admin: 03/25/19 00:04 Dose: 1,000 mg Albuterol (Proventil Neb Soln) 2.5 mg NEB ONETIME PRN PRN Reason: Wheezing Atropine Sulfate (Atropine 0.1 Mg/Ml) 0.5 mg IVPUSH ASDIRECTED PRN PRN Reason: Hypo-perfusion Atropine Sulfate (Atropine 0.1 Mg/Ml) 1 mg IVPUSH ASDIRECTED PRN PRN Reason: Hypo-Perfusion Dextrose/Water (Dextrose 50% In Water) 50 ml IVPUSH ASDIRECTED PRN PRN Reason: Hypoglycemia Epinephrine HCl (Epinephrine 1:10,000) 1 mg IVPUSH ASDIRECTED PRN PRN Reason: ACLS Guidelines Fentanyl (Sublimaze) Confirm Administered Dose 250 mcg .ROUTE .STK-MED ONE Stop: 03/25/19 07:01 Fentanyl (Sublimaze) 50 - 100 mcg IVPUSH Q5M PRN PRN Reason: Pain Sodium Chloride (Normal Saline) 1,000 mls @ 999 mls/hr IV STAT ONE Stop: 03/25/19 00:59 Last Admin: 03/25/19 00:04 Dose: 999 mls/hr Sodium Chloride (Normal Saline) 1,000 mls @ 999 mls/hr IV .Bolus ONE Stop: 03/25/19 01:47 Last Admin: 03/25/19 00:48 Dose: 999 mls/hr Piperacillin Sod/Tazobactam (Sod 4.5 gm/ Sodium Chloride) 100 mls @ 100 mls/hr IV ONETIME ONE Stop: 03/25/19 02:08 Last Admin: 03/25/19 01:20 Dose: 100 mls/hr Sodium Chloride (Normal Saline) 1,000 mls @ 150 mls/hr IV ASDIRECTED [facility] Last Admin: 03/25/19 01:20 Dose: 150 mls/hr Clindamycin Phosphate 900 mg/ (Premix) 50 mls @ 100 mls/hr IV ONETIME ONE Stop: 03/25/19 03:45 Last Admin: 03/25/19 03:32 Dose: 100 mls/hr Bupivacaine HCl/Epinephrine Bitart (Sensorc Mpf 0.25%-Epi [id number]) Confirm Administered Dose 30 mls @ as directed .ROUTE .STK-MED ONE Stop: 03/25/19 07:23 Clindamycin Phosphate 300 mg/ (Premix) 50 mls @ 150 mls/hr IV Q6H [facility] Piperacillin Sod/Tazobactam (Sod 4.5 gm/ Sodium Chloride) 100 mls @ 100 mls/hr IV Q6H [facility] Last Admin: 03/26/19 10:01 Dose: 100 mls/hr Sodium Chloride (Normal Saline) 1,000 mls @ 150 mls/hr IV Q6H [facility] Last Admin: 03/26/19 02:05 Dose: 150 mls/hr Vancomycin HCl 2 gm/ Sodium (Chloride) 500 mls @ 250 mls/hr IV Q12H [facility] Last Admin: 03/26/19 04:03 Dose: Not Given Magnesium Sulfate 2 gm/ Premix 50 mls @ 50 mls/hr IV ONETIME ONE Stop: 03/25/19 12:01 Last Admin: 03/25/19 11:15 Dose: 50 mls/hr Sodium Chloride (Normal Saline) 500 mls @ 999 mls/hr IV .BOLUS [facility] Last Admin: 03/25/19 16:56 Dose: 999 mls/hr Ibuprofen (Motrin) 800 mg PO ONETIME ONE Stop: 03/25/19 00:50 Last Admin: 03/25/19 00:53 Dose: 800 mg Insulin Aspart (Novolog) 0 unit SUBCUT TIDAC [facility]; Protocol Last Admin: 03/25/19 12:22 Dose: 2 units Insulin Human Regular (Novolin R) 8 unit SUBCUT ONETIME ONE; Protocol Stop: 03/25/19 02:17 Last Admin: 03/25/19 02:24 Dose: 6 units Iopamidol (Isovue-370 (76%)) 100 ml IVPUSH ONETIME STA Stop: 03/25/19 01:17 Last Admin: 03/25/19 01:28 Dose: 100 ml Ketorolac Tromethamine (Toradol) 30 mg IVPUSH ONETIME ONE Stop: 03/25/19 00:26 Last Admin: 03/25/19 00:36 Dose: 30 mg Lidocaine (Xylocaine-Mpf 2%) Confirm Administered Dose 5 ml .ROUTE .STK-MED ONE Stop: 03/25/19 07:01 Midazolam HCl (Versed 1 Mg/Ml) Confirm Administered Dose 2 mg .ROUTE .STK-MED ONE Stop: 03/25/19 07:00 Morphine Sulfate (Morphine) 4 mg IVPUSH ONETIME ONE Stop: 03/25/19 00:26 Last Admin: 03/25/19 00:37 Dose: 4 mg Morphine Sulfate (Morphine) 4 mg IVPUSH ONETIME ONE Stop: 03/25/19 01:42 Last Admin: 03/25/19 01:47 Dose: 4 mg Naloxone HCl (Narcan) 0.1 mg IVPUSH ASDIRECTED PRN PRN Reason: Respiratory Depression Ondansetron HCl (Zofran) 4 mg IVPUSH ONETIME ONE Stop: 03/25/19 00:26 Last Admin: 03/25/19 00:37 Dose: 4 mg Ondansetron HCl (Zofran) Confirm Administered Dose 4 mg .ROUTE .STK-MED ONE Stop: 03/25/19 07:01 Phenylephrine HCl (Phenylephrine In Ns 100 Mcg/Ml) Confirm Administered Dose 1 mg .ROUTE .STK-MED ONE Stop: 03/25/19 08:06 Propofol (Diprivan 20 Ml) Confirm Administered Dose 200 mg .ROUTE .STK-MED ONE Stop: 03/25/19 07:00 Propofol (Diprivan 20 Ml) Confirm Administered Dose 200 mg .ROUTE .STK-MED ONE Stop: 03/25/19 07:38 Rocuronium [place] (Zemuron) Confirm Administered Dose 100 mg .ROUTE .STK-MED ONE Stop: 03/25/19 07:01 - Exam Wound/Incisions: No Drainage (wound drsg changed; still smell, minimal drainage ; no cellulitis) Sepsis Event Note - Evaluation Sepsis Screening Result: Sepsis Risk - Focused Exam Vital Signs: Vital Signs Temp Pulse Resp BP Pulse Ox 03/26/19 08:00 98.8 F 104 H 16 137/81 94 L 03/26/19 04:49 99 F 100 16 112/56 L 97 Date Exam was Performed: 03/26/19 Time Exam was Performed: 13:47 - Problem List Review Problem List Initiated/Reviewed/Updated: Yes - My Orders Last 24 Hours: Active Orders 24 hr Category Date Time Status Blood Glucose Check, Bedside [RC] TIDAC Care 03/25/19 17:00 Active Communication Order [RC] ROUTINE Care 03/26/19 12:39 Active BMP [BASIC METABOLIC PANEL,BMP] [CHEM] AM Lab 03/27/19 05:11 Ordered BMP [BASIC METABOLIC PANEL,BMP] [CHEM] AM Lab 03/28/19 05:11 Ordered CBC WITH AUTO DIFF [HEME] AM Lab 03/27/19 05:11 Ordered CBC WITH AUTO DIFF [HEME] AM Lab 03/28/19 05:11 Ordered VANCOMYCIN TROUGH [CHEM] Routine Lab 03/27/19 01:30 Ordered Docusate Sodium [Colace] Med 03/26/19 13:31 Active 100 mg PO BID PRN Insulin Aspart [NovoLOG] Med 03/25/19 17:00 Active See Protocol SUBCUT TIDAC Insulin Glarg,Human.Rec.Analog [LantUS Solostar] Med 03/25/19 21:00 Active 15 units SUBCUT BEDTIME Vancomycin 2 gm Med 03/26/19 02:00 Active Sodium Chloride 0.9% [Normal Saline] 500 ml IV Q12H [id number] [Rocephin in Dextrose,Iso-Osm 2 GM/50 ML] 2 Med 03/26/19 10:45 Active gm Premix Bag 1 bag IV Q24H Medication Orders Acetaminophen (Tylenol) 650 mg PO Q4H PRN PRN Reason: Pain (mild 1-3) Last Admin: 03/26/19 10:32 Dose: 650 mg Admin: 03/25/19 18:44 Dose: 650 mg Docusate Sodium (Colace) 100 mg PO BID PRN PRN Reason: Constipation Vancomycin HCl 2 gm/ Sodium (Chloride) 500 mls @ 250 mls/hr IV Q12H [facility] Last Admin: 03/26/19 13:38 Dose: 250 mls/hr Infusion: 03/26/19 04:58 Dose: 250 mls/hr Admin: 03/26/19 02:58 Dose: 250 mls/hr Ceftriaxone Sodium/Dextrose 2 (gm/ Premix) 50 mls @ 100 mls/hr IV Q24H [facility] Last Admin: 03/26/19 11:22 Dose: 100 mls/hr Insulin Aspart (Novolog) 0 unit SUBCUT TIDAC [facility]; Protocol Last Admin: 03/26/19 12:38 Dose: 2 units Admin: 03/26/19 07:52 Dose: 2 units Admin: 03/25/19 17:51 Dose: 2 units Insulin Glargine (Lantus Solostar) 15 units SUBCUT BEDTIME [facility] Last Admin: 03/25/19 21:57 Dose: 15 units Morphine Sulfate (Morphine) 2 mg IVPUSH Q2H PRN PRN Reason: Pain Last Admin: 03/26/19 12:34 Dose: 2 mg Ondansetron HCl (Zofran) 4 mg IVPUSH Q4H PRN PRN Reason: Nausea Oxycodone/Acetaminophen (Percocet 325-10 Mg) 1 tab PO Q8H PRN PRN Reason: Pain Last Admin: 03/26/19 08:14 Dose: 1 tab Admin: 03/25/19 23:05 Dose: 1 tab Admin: 03/25/19 14:21 Dose: 1 tab Sodium Chloride (Saline Flush) 10 ml FLUSH ASDIRECTED PRN PRN Reason: Keep Vein Open Sodium Chloride (Saline Flush) 2.5 ml FLUSH ASDIRECTED PRN PRN Reason: Keep Vein Open Vancomycin HCl (Pharmacy To Dose - Vancomycin) 1 dose .XX ASDIRECTED [facility] - Assessment Assessment (Free Text/Narrative):: doing well s/p i/d; would send home on augmentin, and pain meds; pt taught drsg change qday; fu w me coming Friday - Plan Plan (Free Text/Narrative):: doing well s/p i/d; would send home on augmentin, and pain meds; pt taught drsg change qday; fu w me coming Friday
[2019-03-26] MEDS: Ondansetron 4 MG/2 ML SDV IVPUSH PRN (19:47)
[2019-03-26] MEDS: Insulin Glargine,Human Rec. Analog 100 Units/ML 3 ML Pen SUBCUT SCH (21:42)
[2019-03-27] MEDS: Vancomycin 2 GM in Sodium Chloride 0.9% 500 ML IV SCH (02:30)
[2019-03-27] MEDS: Ondansetron 4 MG/2 ML SDV IVPUSH PRN (02:36)
[2019-03-27] MEDS: Acetaminophen/oxyCODONE 325-10 MG Tab PO PRN (03:33)
[2019-03-27 06:51] LABS: CARBON DIOXIDE,CO2 26.5 mmol/L (21.0-32.0); POTASSIUM,K 4.3 mmol/L (3.5-5.1)
[2019-03-27] MEDS ORDERED: Sodium Chloride 0.9% 1,000 ML IV SCH (07:30)
[2019-03-27] MEDS: Insulin Aspart 100 Units/ML 3 ML Pen SUBCUT SCH ×3 (08:05→17:45)
--- NOTE | 2019-03-27 08:42 | PCM.PN ---
- General Info Date of Service: 03/27/19 Subjective Update: Patient reports she is ok, still has pain at incision and some nausea. - Review of Systems General: Reports: No Symptoms HEENT: Reports: No Symptoms Pulmonary: Reports: No Symptoms Cardiovascular: Reports: No Symptoms Gastrointestinal: Reports: No Symptoms Genitourinary: Reports: No Symptoms Musculoskeletal: Reports: No Symptoms Skin: Reports: Other (incision pain) Neurological: Reports: No Symptoms Psychiatric: Reports: No Symptoms - Patient Data Vitals - Most Recent: Last Vital Signs Temp 97.5 F 03/27/19 08:00 Pulse 72 03/27/19 08:00 Resp 18 03/27/19 08:00 BP 125/65 03/27/19 08:00 Pulse Ox 97 03/27/19 08:00 Weight - Most Recent: 140.886 kg I&O - Last 24 Hours: Intake & Output 03/26/19 03/27/19 03/27/19 22:59 06:59 14:59 Intake Total 1000 Output Total 700 Balance 300 Lab Results Last 24 Hours: Laboratory Results - last 24 hr 03/26/19 03/26/19 03/26/19 Range/Units 11:42 17:24 21:40 WBC (4.0-11.0) K/uL RBC (4.30-5.90) M/uL Hgb (12.0-16.0) g/dL Hct (36.0-46.0) % MCV (80.0-98.0) fL MCH (27.0-32.0) pg MCHC (31.0-37.0) g/dL RDW Std Deviation (28.0-62.0) fl RDW Coeff of Jocy (11.0-15.0) % Plt Count (150-400) K/uL MPV (7.40-12.00) fL Neut % (Auto) (48.0-80.0) % Lymph % (Auto) (16.0-40.0) % [place] % (Auto) (0.0-15.0) % Eos % (Auto) (0.0-7.0) % Baso % (Auto) (0.0-1.5) % Neut # (Auto) (1.4-5.7) K/uL Lymph # (Auto) (0.6-2.4) K/uL [place] # (Auto) (0.0-0.8) K/uL Eos # (Auto) (0.0-0.7) K/uL Baso # (Auto) (0.0-0.1) K/uL Nucleated RBC % /100WBC Nucleated RBCs # K/uL Sodium (136-145) mmol/L Potassium (3.5-5.1) mmol/L Chloride (98-107) mmol/L Carbon Dioxide (21.0-32.0) mmol/L BUN (7.0-18.0) mg/dL Creatinine (0.6-1.0) mg/dL Est Cr Clr Drug Dosing mL/min Estimated GFR (MDRD) ml/min Glucose (74-106) mg/dL POC Glucose 178 H 191 H 223 H (60-110) mg/dL Calcium (8.5-10.1) mg/dL Vancomycin Trough (5.0-10.0) ug/mL 03/27/19 03/27/19 03/27/19 Range/Units 01:25 06:05 06:05 WBC 13.41 H (4.0-11.0) K/uL RBC 4.50 (4.30-5.90) M/uL Hgb 13.0 (12.0-16.0) g/dL Hct 39.4 (36.0-46.0) % MCV 87.6 (80.0-98.0) fL MCH 28.9 (27.0-32.0) pg MCHC 33.0 (31.0-37.0) g/dL RDW Std Deviation 43.4 (28.0-62.0) fl RDW Coeff of Ojcy 14 (11.0-15.0) % Plt Count 293 (150-400) K/uL MPV 9.60 (7.40-12.00) fL Neut % (Auto) 72.6 (48.0-80.0) % Lymph % (Auto) 16.4 (16.0-40.0) % [place] % (Auto) 9.2 (0.0-15.0) % Eos % (Auto) 1.6 (0.0-7.0) % Baso % (Auto) 0.2 (0.0-1.5) % Neut # (Auto) 9.7 H (1.4-5.7) K/uL Lymph # (Auto) 2.2 (0.6-2.4) K/uL [place] # (Auto) 1.2 H (0.0-0.8) K/uL Eos # (Auto) 0.2 (0.0-0.7) K/uL Baso # (Auto) 0.0 (0.0-0.1) K/uL Nucleated RBC % 0.0 /100WBC Nucleated RBCs # 0 K/uL Sodium 142 (136-145) mmol/L Potassium 4.3 (3.5-5.1) mmol/L Chloride 106 (98-107) mmol/L Carbon Dioxide 26.5 (21.0-32.0) mmol/L BUN 9 (7.0-18.0) mg/dL Creatinine 2.1 H (0.6-1.0) mg/dL Est Cr Clr Drug Dosing 42.59 mL/min Estimated GFR (MDRD) 27.1 ml/min Glucose 181 H (74-106) mg/dL POC Glucose (60-110) mg/dL Calcium 8.2 L (8.5-10.1) mg/dL Vancomycin Trough 9.8 (5.0-10.0) ug/mL 03/27/19 Range/Units 06:34 WBC (4.0-11.0) K/uL RBC (4.30-5.90) M/uL Hgb (12.0-16.0) g/dL Hct (36.0-46.0) % MCV (80.0-98.0) fL MCH (27.0-32.0) pg MCHC (31.0-37.0) g/dL RDW Std Deviation (28.0-62.0) fl RDW Coeff of Jocy (11.0-15.0) % Plt Count (150-400) K/uL MPV (7.40-12.00) fL Neut % (Auto) (48.0-80.0) % Lymph % (Auto) (16.0-40.0) % [place] % (Auto) (0.0-15.0) % Eos % (Auto) (0.0-7.0) % Baso % (Auto) (0.0-1.5) % Neut # (Auto) (1.4-5.7) K/uL Lymph # (Auto) (0.6-2.4) K/uL [place] # (Auto) (0.0-0.8) K/uL Eos # (Auto) (0.0-0.7) K/uL Baso # (Auto) (0.0-0.1) K/uL Nucleated RBC % /100WBC Nucleated RBCs # K/uL Sodium (136-145) mmol/L Potassium (3.5-5.1) mmol/L Chloride (98-107) mmol/L Carbon Dioxide (21.0-32.0) mmol/L BUN (7.0-18.0) mg/dL Creatinine (0.6-1.0) mg/dL Est Cr Clr Drug Dosing mL/min Estimated GFR (MDRD) ml/min Glucose (74-106) mg/dL POC Glucose 163 H (60-110) mg/dL Calcium (8.5-10.1) mg/dL Vancomycin Trough (5.0-10.0) ug/mL [place] Results Last 24 Hours: Microbiology 03/25/19 00:25 Aerobic Blood Culture - Preliminary Blood - Venous - Lab Draw NO GROWTH AFTER 2 DAYS Anaerobic Blood Culture - Preliminary NO GROWTH AFTER 2 DAYS 03/25/19 00:05 Aerobic Blood Culture - Preliminary Blood - Venous NO GROWTH AFTER 2 DAYS Anaerobic Blood Culture - Preliminary NO GROWTH AFTER 2 DAYS 03/25/19 00:12 Urine Culture - Final Urine, Clean Catch MIXED VIVIENNE >100,000 CFU/ML Med Orders - Current: Current Medications Acetaminophen (Tylenol) 650 mg PO Q4H PRN PRN Reason: Pain (mild 1-3) Last Admin: 03/26/19 15:17 Dose: 650 mg Docusate Sodium (Colace) 100 mg PO BID PRN PRN Reason: Constipation Last Admin: 03/26/19 14:01 Dose: 100 mg Vancomycin HCl 2 gm/ Sodium (Chloride) 500 mls @ 250 mls/hr IV Q12H [facility] Last Admin: 03/27/19 02:30 Dose: 250 mls/hr Ceftriaxone Sodium/Dextrose 2 (gm/ Premix) 50 mls @ 100 mls/hr IV Q24H [facility] Last Admin: 03/26/19 11:22 Dose: 100 mls/hr Sodium Chloride (Normal Saline) 1,000 mls @ 125 mls/hr IV ASDIRECTED [facility] Insulin Aspart (Novolog) 0 unit SUBCUT TIDAC [facility]; Protocol Last Admin: 03/27/19 08:05 Dose: 2 units Insulin Glargine (Lantus Solostar) 15 units SUBCUT BEDTIME [facility] Last Admin: 03/26/19 21:42 Dose: 15 units Morphine Sulfate (Morphine) 2 mg IVPUSH Q2H PRN PRN Reason: Pain Last Admin: 03/26/19 17:34 Dose: 2 mg Ondansetron HCl (Zofran) 4 mg IVPUSH Q4H PRN PRN Reason: Nausea Last Admin: 03/27/19 02:36 Dose: 4 mg Oxycodone/Acetaminophen (Percocet 325-10 Mg) 1 tab PO Q8H PRN PRN Reason: Pain Last Admin: 03/27/19 03:33 Dose: 1 tab Sodium Chloride (Saline Flush) 10 ml FLUSH ASDIRECTED PRN PRN Reason: Keep Vein Open Sodium Chloride (Saline Flush) 2.5 ml FLUSH ASDIRECTED PRN PRN Reason: Keep Vein Open Vancomycin HCl (Pharmacy To Dose - Vancomycin) 1 dose .XX ASDIRECTED [facility] Discontinued Medications Acetaminophen (Tylenol Extra Strength) 1,000 mg PO ONETIME ONE Stop: 03/25/19 00:00 Last Admin: 03/25/19 00:04 Dose: 1,000 mg Albuterol (Proventil Neb Soln) 2.5 mg NEB ONETIME PRN PRN Reason: Wheezing Atropine Sulfate (Atropine 0.1 Mg/Ml) 0.5 mg IVPUSH ASDIRECTED PRN PRN Reason: Hypo-perfusion Atropine Sulfate (Atropine 0.1 Mg/Ml) 1 mg IVPUSH ASDIRECTED PRN PRN Reason: Hypo-Perfusion Dextrose/Water (Dextrose 50% In Water) 50 ml IVPUSH ASDIRECTED PRN PRN Reason: Hypoglycemia Epinephrine HCl (Epinephrine 1:10,000) 1 mg IVPUSH ASDIRECTED PRN PRN Reason: ACLS Guidelines Fentanyl (Sublimaze) Confirm Administered Dose 250 mcg .ROUTE .STK-MED ONE Stop: 03/25/19 07:01 Fentanyl (Sublimaze) 50 - 100 mcg IVPUSH Q5M PRN PRN Reason: Pain Sodium Chloride (Normal Saline) 1,000 mls @ 999 mls/hr IV STAT ONE Stop: 03/25/19 00:59 Last Admin: 03/25/19 00:04 Dose: 999 mls/hr Sodium Chloride (Normal Saline) 1,000 mls @ 999 mls/hr IV .Bolus ONE Stop: 03/25/19 01:47 Last Admin: 03/25/19 00:48 Dose: 999 mls/hr Piperacillin Sod/Tazobactam (Sod 4.5 gm/ Sodium Chloride) 100 mls @ 100 mls/hr IV ONETIME ONE Stop: 03/25/19 02:08 Last Admin: 03/25/19 01:20 Dose: 100 mls/hr Sodium Chloride (Normal Saline) 1,000 mls @ 150 mls/hr IV ASDIRECTED [facility] Last Admin: 03/25/19 01:20 Dose: 150 mls/hr Clindamycin Phosphate 900 mg/ (Premix) 50 mls @ 100 mls/hr IV ONETIME ONE Stop: 03/25/19 03:45 Last Admin: 03/25/19 03:32 Dose: 100 mls/hr Bupivacaine HCl/Epinephrine Bitart (Sensorc Mpf 0.25%-Epi 1:070819) Confirm Administered Dose 30 mls @ as directed .ROUTE .STK-MED ONE Stop: 03/25/19 07:23 Clindamycin Phosphate 300 mg/ (Premix) 50 mls @ 150 mls/hr IV Q6H [facility] Piperacillin Sod/Tazobactam (Sod 4.5 gm/ Sodium Chloride) 100 mls @ 100 mls/hr IV Q6H [facility] Last Admin: 03/26/19 10:01 Dose: 100 mls/hr Sodium Chloride (Normal Saline) 1,000 mls @ 150 mls/hr IV Q6H [facility] Last Admin: 03/26/19 16:54 Dose: Not Given Vancomycin HCl 2 gm/ Sodium (Chloride) 500 mls @ 250 mls/hr IV Q12H [facility] Last Admin: 03/26/19 04:03 Dose: Not Given Magnesium Sulfate 2 gm/ Premix 50 mls @ 50 mls/hr IV ONETIME ONE Stop: 03/25/19 12:01 Last Admin: 03/25/19 11:15 Dose: 50 mls/hr Sodium Chloride (Normal Saline) 500 mls @ 999 mls/hr IV .BOLUS [facility] Last Admin: 03/25/19 16:56 Dose: 999 mls/hr Ibuprofen (Motrin) 800 mg PO ONETIME ONE Stop: 03/25/19 00:50 Last Admin: 03/25/19 00:53 Dose: 800 mg Insulin Aspart (Novolog) 0 unit SUBCUT TIDAC [facility]; Protocol Last Admin: 03/25/19 12:22 Dose: 2 units Insulin Human Regular (Novolin R) 8 unit SUBCUT ONETIME ONE; Protocol Stop: 03/25/19 02:17 Last Admin: 03/25/19 02:24 Dose: 6 units Iopamidol (Isovue-370 (76%)) 100 ml IVPUSH ONETIME STA Stop: 03/25/19 01:17 Last Admin: 03/25/19 01:28 Dose: 100 ml Ketorolac Tromethamine (Toradol) 30 mg IVPUSH ONETIME ONE Stop: 03/25/19 00:26 Last Admin: 03/25/19 00:36 Dose: 30 mg Lidocaine (Xylocaine-Mpf 2%) Confirm Administered Dose 5 ml .ROUTE .STK-MED ONE Stop: 03/25/19 07:01 Midazolam HCl (Versed 1 Mg/Ml) Confirm Administered Dose 2 mg .ROUTE .STK-MED ONE Stop: 03/25/19 07:00 Morphine Sulfate (Morphine) 4 mg IVPUSH ONETIME ONE Stop: 03/25/19 00:26 Last Admin: 03/25/19 00:37 Dose: 4 mg Morphine Sulfate (Morphine) 4 mg IVPUSH ONETIME ONE Stop: 03/25/19 01:42 Last Admin: 03/25/19 01:47 Dose: 4 mg Naloxone HCl (Narcan) 0.1 mg IVPUSH ASDIRECTED PRN PRN Reason: Respiratory Depression Ondansetron HCl (Zofran) 4 mg IVPUSH ONETIME ONE Stop: 03/25/19 00:26 Last Admin: 03/25/19 00:37 Dose: 4 mg Ondansetron HCl (Zofran) Confirm Administered Dose 4 mg .ROUTE .STK-MED ONE Stop: 03/25/19 07:01 Phenylephrine HCl (Phenylephrine In Ns 100 Mcg/Ml) Confirm Administered Dose 1 mg .ROUTE .STK-MED ONE Stop: 03/25/19 08:06 Propofol (Diprivan 20 Ml) Confirm Administered Dose 200 mg .ROUTE .STK-MED ONE Stop: 03/25/19 07:00 Propofol (Diprivan 20 Ml) Confirm Administered Dose 200 mg .ROUTE .STK-MED ONE Stop: 03/25/19 07:38 Rocuronium [place] (Zemuron) Confirm Administered Dose 100 mg .ROUTE .STK-MED ONE Stop: 03/25/19 07:01 - Exam General: Alert, Oriented, Cooperative Lungs: Clear to Auscultation, Normal Respiratory Effort Cardiovascular: Regular Rate, Regular Rhythm GI/Abdominal Exam: Normal Bowel Sounds, Soft, Non-Tender, No Distention Extremities: No Pedal Edema Skin: Warm, Dry Wound/Incisions: Drainage. No: Erythema Neurological: No New Focal Deficit Psy/Mental Status: Alert, Normal Affect, Normal Mood Sepsis Event Note - Evaluation Sepsis Screening Result: Sepsis Risk - Focused Exam Vital Signs: Vital Signs Temp Temp Pulse Resp BP BP Pulse Ox 03/27/19 08:00 97.5 F 72 18 125/65 97 03/27/19 05:31 97.7 F 83 16 127/66 96 03/27/19 00:50 98.9 F 108 H 20 143/75 H 143/75 H 95 Date Exam was Performed: 03/27/19 Time Exam was Performed: 12:17 - Problem List Review Problem List Initiated/Reviewed/Updated: Yes - My Orders Last 24 Hours: My Active Orders 03/26/19 13:31 Docusate Sodium [Colace] 100 mg PO BID PRN 03/27/19 07:30 Sodium Chloride 0.9% [Normal Saline] 1,000 ml IV ASDIRECTED - Plan Plan:: This 33 year old female admitted with sepsis secondary to prei-rectal abscess, Dr Peralta consulted for I&D 1. Perirectal abscess: No further fever or tachycardia. WBC at 13. Wound culture growing gram positive cocci in pairs and clusters as well as gram negative rods. Continue Rocephin. Pain control with IV and oral agents. Dr. Peralta , general surgery has cleared her for discharge from his standpoint. Taught her how to do dressing changes, recommended discharge on Augmentin, will follow up with him in clinic on 03/30/19 2. [place]- spoke with contractor general engineering, CALDERON Boyd, who thinks it was likely due to contrast received with imaging and hypotension in OR. Recommended repeat UA and daily labs to monitor Cr, stated the Cr may continue to rise. No need for IVF as long as she is drinking normally. Avoid nephrotoxic agents. Will stop Vancomycin. Consider transfer if not producing urine. 3. Dm type 2: new onset, SSI Novolog, increased Lantus to 17 at bedtime, accuchecks. HA1c was 9.6. DNE as outpatient.
[2019-03-27] MEDS: cefTRIAXone 2 GM in Premix Bag 1 BAG IV SCH (11:07)
[2019-03-27] MEDS: Insulin Glargine,Human Rec. Analog 100 Units/ML 3 ML Pen SUBCUT SCH (21:52)
[2019-03-28] MEDS: Insulin Aspart 100 Units/ML 3 ML Pen SUBCUT SCH ×3 (06:48→17:46)
[2019-03-28 06:56] LABS: POTASSIUM,K 3.4 mmol/L (3.5-5.1)
[2019-03-28] MEDS: cefTRIAXone 2 GM in Premix Bag 1 BAG IV SCH (09:54)
--- NOTE | 2019-03-28 15:11 | PCM.PN ---
- General Info Date of Service: 03/28/19 - Review of Systems Systems Review Comment:: no fevers, no back pain, no nausea - Patient Data Vitals - Most Recent: Last Vital Signs Temp 36.4 C 03/28/19 12:00 Pulse 86 03/28/19 12:00 Resp 18 03/28/19 12:00 BP 145/66 H 03/28/19 12:00 Pulse Ox 96 03/28/19 12:00 Weight - Most Recent: 140.886 kg I&O - Last 24 Hours: Intake & Output 03/28/19 03/28/19 03/28/19 06:59 14:59 22:59 Intake Total 1300 50 Balance 1300 50 Lab Results Last 24 Hours: Laboratory Results - last 24 hr 03/27/19 03/27/19 03/28/19 Range/Units 17:44 21:51 06:00 WBC 13.71 H (4.0-11.0) K/uL RBC 4.52 (4.30-5.90) M/uL Hgb 12.9 (12.0-16.0) g/dL Hct 38.8 (36.0-46.0) % MCV 85.8 (80.0-98.0) fL MCH 28.5 (27.0-32.0) pg MCHC 33.2 (31.0-37.0) g/dL RDW Std Deviation 42.2 (28.0-62.0) fl RDW Coeff of Jocy 14 (11.0-15.0) % Plt Count 313 (150-400) K/uL MPV 9.40 (7.40-12.00) fL Neut % (Auto) 75.0 (48.0-80.0) % Lymph % (Auto) 14.8 L (16.0-40.0) % [place] % (Auto) 8.8 (0.0-15.0) % Eos % (Auto) 1.2 (0.0-7.0) % Baso % (Auto) 0.2 (0.0-1.5) % Neut # (Auto) 10.3 H (1.4-5.7) K/uL Lymph # (Auto) 2.0 (0.6-2.4) K/uL [place] # (Auto) 1.2 H (0.0-0.8) K/uL Eos # (Auto) 0.2 (0.0-0.7) K/uL Baso # (Auto) 0.0 (0.0-0.1) K/uL Nucleated RBC % 0.0 /100WBC Nucleated RBCs # 0 K/uL Sodium (136-145) mmol/L Potassium (3.5-5.1) mmol/L Chloride (98-107) mmol/L Carbon Dioxide (21.0-32.0) mmol/L BUN (7.0-18.0) mg/dL Creatinine (0.6-1.0) mg/dL Est Cr Clr Drug Dosing mL/min Estimated GFR (MDRD) ml/min Glucose (74-106) mg/dL POC Glucose 149 H 170 H (60-110) mg/dL Calcium (8.5-10.1) mg/dL 03/28/19 03/28/19 03/28/19 Range/Units 06:00 06:46 12:29 WBC (4.0-11.0) K/uL RBC (4.30-5.90) M/uL Hgb (12.0-16.0) g/dL Hct (36.0-46.0) % MCV (80.0-98.0) fL MCH (27.0-32.0) pg MCHC (31.0-37.0) g/dL RDW Std Deviation (28.0-62.0) fl RDW Coeff of Jocy (11.0-15.0) % Plt Count (150-400) K/uL MPV (7.40-12.00) fL Neut % (Auto) (48.0-80.0) % Lymph % (Auto) (16.0-40.0) % [place] % (Auto) (0.0-15.0) % Eos % (Auto) (0.0-7.0) % Baso % (Auto) (0.0-1.5) % Neut # (Auto) (1.4-5.7) K/uL Lymph # (Auto) (0.6-2.4) K/uL [place] # (Auto) (0.0-0.8) K/uL Eos # (Auto) (0.0-0.7) K/uL Baso # (Auto) (0.0-0.1) K/uL Nucleated RBC % /100WBC Nucleated RBCs # K/uL Sodium 141 (136-145) mmol/L Potassium 3.4 L (3.5-5.1) mmol/L Chloride 105 (98-107) mmol/L Carbon Dioxide 27.0 (21.0-32.0) mmol/L BUN 13 (7.0-18.0) mg/dL Creatinine 3.5 H (0.6-1.0) mg/dL Est Cr Clr Drug Dosing 25.55 mL/min Estimated GFR (MDRD) 15.0 ml/min Glucose 165 H (74-106) mg/dL POC Glucose 140 H 161 H (60-110) mg/dL Calcium 8.8 (8.5-10.1) mg/dL [place] Results Last 24 Hours: Microbiology 03/25/19 08:09 Gram Stain - Preliminary Perirectal 03/25/19 08:09 Anaerobic Culture - Preliminary Wound - Perianal 03/25/19 00:25 Aerobic Blood Culture - Preliminary Blood - Venous - Lab Draw NO GROWTH AFTER 3 DAYS Anaerobic Blood Culture - Preliminary NO GROWTH AFTER 3 DAYS 03/25/19 00:05 Aerobic Blood Culture - Preliminary Blood - Venous NO GROWTH AFTER 3 DAYS Anaerobic Blood Culture - Preliminary NO GROWTH AFTER 3 DAYS Med Orders - Current: Current Medications Acetaminophen (Tylenol) 650 mg PO Q4H PRN PRN Reason: Pain (mild 1-3) Last Admin: 03/26/19 15:17 Dose: 650 mg Docusate Sodium (Colace) 100 mg PO BID PRN PRN Reason: Constipation Last Admin: 03/26/19 14:01 Dose: 100 mg Ceftriaxone Sodium/Dextrose 2 (gm/ Premix) 50 mls @ 100 mls/hr IV Q24H [facility] Last Admin: 03/28/19 09:54 Dose: 100 mls/hr Insulin Aspart (Novolog) 0 unit SUBCUT TIDAC [facility]; Protocol Last Admin: 03/28/19 12:33 Dose: 2 units Insulin Glargine (Lantus Solostar) 17 units SUBCUT BEDTIME [facility] Last Admin: 03/27/19 21:52 Dose: 17 units Morphine Sulfate (Morphine) 2 mg IVPUSH Q2H PRN PRN Reason: Pain Last Admin: 03/26/19 17:34 Dose: 2 mg Ondansetron HCl (Zofran) 4 mg IVPUSH Q4H PRN PRN Reason: Nausea Last Admin: 03/27/19 02:36 Dose: 4 mg Oxycodone/Acetaminophen (Percocet 325-10 Mg) 1 tab PO Q8H PRN PRN Reason: Pain Last Admin: 03/27/19 03:33 Dose: 1 tab Sodium Chloride (Saline Flush) 10 ml FLUSH ASDIRECTED PRN PRN Reason: Keep Vein Open Sodium Chloride (Saline Flush) 2.5 ml FLUSH ASDIRECTED PRN PRN Reason: Keep Vein Open Discontinued Medications Acetaminophen (Tylenol Extra Strength) 1,000 mg PO ONETIME ONE Stop: 03/25/19 00:00 Last Admin: 03/25/19 00:04 Dose: 1,000 mg Albuterol (Proventil Neb Soln) 2.5 mg NEB ONETIME PRN PRN Reason: Wheezing Atropine Sulfate (Atropine 0.1 Mg/Ml) 0.5 mg IVPUSH ASDIRECTED PRN PRN Reason: Hypo-perfusion Atropine Sulfate (Atropine 0.1 Mg/Ml) 1 mg IVPUSH ASDIRECTED PRN PRN Reason: Hypo-Perfusion Dextrose/Water (Dextrose 50% In Water) 50 ml IVPUSH ASDIRECTED PRN PRN Reason: Hypoglycemia Epinephrine HCl (Epinephrine 1:10,000) 1 mg IVPUSH ASDIRECTED PRN PRN Reason: ACLS Guidelines Fentanyl (Sublimaze) Confirm Administered Dose 250 mcg .ROUTE .STK-MED ONE Stop: 03/25/19 07:01 Fentanyl (Sublimaze) 50 - 100 mcg IVPUSH Q5M PRN PRN Reason: Pain Sodium Chloride (Normal Saline) 1,000 mls @ 999 mls/hr IV STAT ONE Stop: 03/25/19 00:59 Last Admin: 03/25/19 00:04 Dose: 999 mls/hr Sodium Chloride (Normal Saline) 1,000 mls @ 999 mls/hr IV .Bolus ONE Stop: 03/25/19 01:47 Last Admin: 03/25/19 00:48 Dose: 999 mls/hr Piperacillin Sod/Tazobactam (Sod 4.5 gm/ Sodium Chloride) 100 mls @ 100 mls/hr IV ONETIME ONE Stop: 03/25/19 02:08 Last Admin: 03/25/19 01:20 Dose: 100 mls/hr Sodium Chloride (Normal Saline) 1,000 mls @ 150 mls/hr IV ASDIRECTED [facility] Last Admin: 03/25/19 01:20 Dose: 150 mls/hr Clindamycin Phosphate 900 mg/ (Premix) 50 mls @ 100 mls/hr IV ONETIME ONE Stop: 03/25/19 03:45 Last Admin: 03/25/19 03:32 Dose: 100 mls/hr Bupivacaine HCl/Epinephrine Bitart (Sensorc Mpf 0.25%-Epi 1:[id number]) Confirm Administered Dose 30 mls @ as directed .ROUTE .STK-MED ONE Stop: 03/25/19 07:23 Clindamycin Phosphate 300 mg/ (Premix) 50 mls @ 150 mls/hr IV Q6H [facility] Piperacillin Sod/Tazobactam (Sod 4.5 gm/ Sodium Chloride) 100 mls @ 100 mls/hr IV Q6H [facility] Last Admin: 03/26/19 10:01 Dose: 100 mls/hr Sodium Chloride (Normal Saline) 1,000 mls @ 150 mls/hr IV Q6H [facility] Last Admin: 03/26/19 16:54 Dose: Not Given Vancomycin HCl 2 gm/ Sodium (Chloride) 500 mls @ 250 mls/hr IV Q12H [facility] Last Admin: 03/26/19 04:03 Dose: Not Given Magnesium Sulfate 2 gm/ Premix 50 mls @ 50 mls/hr IV ONETIME ONE Stop: 03/25/19 12:01 Last Admin: 03/25/19 11:15 Dose: 50 mls/hr Sodium Chloride (Normal Saline) 500 mls @ 999 mls/hr IV .BOLUS [facility] Last Admin: 03/25/19 16:56 Dose: 999 mls/hr Vancomycin HCl 2 gm/ Sodium (Chloride) 500 mls @ 250 mls/hr IV Q12H [facility] Last Admin: 03/27/19 02:30 Dose: 250 mls/hr Sodium Chloride (Normal Saline) 1,000 mls @ 125 mls/hr IV ASDIRECTED [facility] Last Admin: 03/27/19 09:09 Dose: 125 mls/hr Ibuprofen (Motrin) 800 mg PO ONETIME ONE Stop: 03/25/19 00:50 Last Admin: 03/25/19 00:53 Dose: 800 mg Insulin Aspart (Novolog) 0 unit SUBCUT TIDAC [facility]; Protocol Last Admin: 03/25/19 12:22 Dose: 2 units Insulin Glargine (Lantus Solostar) 15 units SUBCUT BEDTIME [facility] Last Admin: 03/26/19 21:42 Dose: 15 units Insulin Human Regular (Novolin R) 8 unit SUBCUT ONETIME ONE; Protocol Stop: 03/25/19 02:17 Last Admin: 03/25/19 02:24 Dose: 6 units Iopamidol (Isovue-370 (76%)) 100 ml IVPUSH ONETIME STA Stop: 03/25/19 01:17 Last Admin: 03/25/19 01:28 Dose: 100 ml Ketorolac Tromethamine (Toradol) 30 mg IVPUSH ONETIME ONE Stop: 03/25/19 00:26 Last Admin: 03/25/19 00:36 Dose: 30 mg Lidocaine (Xylocaine-Mpf 2%) Confirm Administered Dose 5 ml .ROUTE .STK-MED ONE Stop: 03/25/19 07:01 Midazolam HCl (Versed 1 Mg/Ml) Confirm Administered Dose 2 mg .ROUTE .STK-MED ONE Stop: 03/25/19 07:00 Morphine Sulfate (Morphine) 4 mg IVPUSH ONETIME ONE Stop: 03/25/19 00:26 Last Admin: 03/25/19 00:37 Dose: 4 mg Morphine Sulfate (Morphine) 4 mg IVPUSH ONETIME ONE Stop: 03/25/19 01:42 Last Admin: 03/25/19 01:47 Dose: 4 mg Naloxone HCl (Narcan) 0.1 mg IVPUSH ASDIRECTED PRN PRN Reason: Respiratory Depression Ondansetron HCl (Zofran) 4 mg IVPUSH ONETIME ONE Stop: 03/25/19 00:26 Last Admin: 03/25/19 00:37 Dose: 4 mg Ondansetron HCl (Zofran) Confirm Administered Dose 4 mg .ROUTE .STK-MED ONE Stop: 03/25/19 07:01 Phenylephrine HCl (Phenylephrine In Ns 100 Mcg/Ml) Confirm Administered Dose 1 mg .ROUTE .STK-MED ONE Stop: 03/25/19 08:06 Propofol (Diprivan 20 Ml) Confirm Administered Dose 200 mg .ROUTE .STK-MED ONE Stop: 03/25/19 07:00 Propofol (Diprivan 20 Ml) Confirm Administered Dose 200 mg .ROUTE .STK-MED ONE Stop: 03/25/19 07:38 Rocuronium [place] (Zemuron) Confirm Administered Dose 100 mg .ROUTE .STK-MED ONE Stop: 03/25/19 07:01 Vancomycin HCl (Pharmacy To Dose - Vancomycin) 1 dose .XX ASDIRECTED GOLDY - Exam General: Alert, Oriented Lungs: Clear to Auscultation, Normal Respiratory Effort Cardiovascular: Regular Rate, Regular Rhythm GI/Abdominal Exam: Normal Bowel Sounds, Soft, Non-Tender Extremities: Non-Tender, No Pedal Edema Skin: Other (cellulitis around surgical wound of perirectal abscess I&D improving) Sepsis Event Note - Evaluation Sepsis Screening Result: No Definite Risk - Focused Exam Vital Signs: Vital Signs Temp Temp Pulse Resp BP Pulse Ox 03/28/19 12:00 36.4 C 86 18 145/66 H 96 03/28/19 08:00 36.9 C 82 18 124/59 L 96 03/28/19 04:00 36.1 C 83 18 120/60 95 Date Exam was Performed: 03/28/19 Time Exam was Performed: 15:07 - Problem List Review Problem List Initiated/Reviewed/Updated: Yes - My Orders Last 24 Hours: My Active Orders 03/28/19 10:20 Intake and Output Strict [RC] Q12H 03/29/19 05:11 BASIC METABOLIC PANEL,BMP [CHEM] AM CBC WITH AUTO DIFF [HEME] AM - Plan Plan:: 33 yo female admitted for perirectal abscess found to have no onset diabetes and acute kidney injury Perirectal abscess: continue rocephin and dressing changes, cultures pending [place]: avoiding nephrotoxic agents, patient making urine, Creatinine 3.5 today will continue to monitor. DM: lantus 17 units qhs, ssi
[2019-03-28] MEDS: Insulin Glargine,Human Rec. Analog 100 Units/ML 3 ML Pen SUBCUT SCH (21:13)
[2019-03-29 06:32] LABS: CARBON DIOXIDE,CO2 27.1 mmol/L (21.0-32.0); POTASSIUM,K 3.2 mmol/L (3.5-5.1)
[2019-03-29] MEDS: Insulin Aspart 100 Units/ML 3 ML Pen SUBCUT SCH ×3 (06:55→17:46)
[2019-03-29] MEDS ORDERED: Potassium Chloride 20 MEQ Tab.ER PO ONE (10:20)
[2019-03-29] MEDS: cefTRIAXone 2 GM in Premix Bag 1 BAG IV SCH (10:41)
--- NOTE | 2019-03-29 12:06 | PCM.PN ---
- General Info Date of Service: 03/29/19 Subjective Update: Patient reports she is doing better but still not sleeping well because people keep coming into her room. Pain improving. Eating and drinking without issue. - Review of Systems General: Reports: No Symptoms HEENT: Reports: No Symptoms Pulmonary: Reports: No Symptoms Cardiovascular: Reports: No Symptoms Gastrointestinal: Reports: No Symptoms Genitourinary: Reports: No Symptoms Musculoskeletal: Reports: No Symptoms Skin: Reports: No Symptoms Neurological: Reports: No Symptoms Psychiatric: Reports: No Symptoms - Patient Data Vitals - Most Recent: Last Vital Signs Temp 97.4 F 03/29/19 11:45 Pulse 72 03/29/19 11:45 Resp 18 03/29/19 11:45 BP 138/73 03/29/19 11:45 Pulse Ox 96 03/29/19 11:45 Weight - Most Recent: 140.886 kg I&O - Last 24 Hours: Intake & Output 03/28/19 03/29/19 03/29/19 22:59 06:59 14:59 Intake Total 600 800 Output Total 700 Balance -100 800 Lab Results Last 24 Hours: Laboratory Results - last 24 hr 03/28/19 03/28/19 03/29/19 Range/Units 12:29 17:44 05:30 WBC 13.09 H (4.0-11.0) K/uL RBC 4.44 (4.30-5.90) M/uL Hgb 12.7 (12.0-16.0) g/dL Hct 37.7 (36.0-46.0) % MCV 84.9 (80.0-98.0) fL MCH 28.6 (27.0-32.0) pg MCHC 33.7 (31.0-37.0) g/dL RDW Std Deviation 40.9 (28.0-62.0) fl RDW Coeff of Jocy 13 (11.0-15.0) % Plt Count 373 (150-400) K/uL MPV 9.40 (7.40-12.00) fL Neut % (Auto) 70.8 (48.0-80.0) % Lymph % (Auto) 19.3 (16.0-40.0) % [place] % (Auto) 8.4 (0.0-15.0) % Eos % (Auto) 1.3 (0.0-7.0) % Baso % (Auto) 0.2 (0.0-1.5) % Neut # (Auto) 9.3 H (1.4-5.7) K/uL Lymph # (Auto) 2.5 H (0.6-2.4) K/uL [place] # (Auto) 1.1 H (0.0-0.8) K/uL Eos # (Auto) 0.2 (0.0-0.7) K/uL Baso # (Auto) 0.0 (0.0-0.1) K/uL Nucleated RBC % 0.0 /100WBC Nucleated RBCs # 0 K/uL Sodium (136-145) mmol/L Potassium (3.5-5.1) mmol/L Chloride (98-107) mmol/L Carbon Dioxide (21.0-32.0) mmol/L BUN (7.0-18.0) mg/dL Creatinine (0.6-1.0) mg/dL Est Cr Clr Drug Dosing mL/min Estimated GFR (MDRD) ml/min Glucose (74-106) mg/dL POC Glucose 161 H 167 H (60-110) mg/dL Calcium (8.5-10.1) mg/dL Magnesium (1.8-2.4) mg/dL 03/29/19 03/29/19 03/29/19 Range/Units 05:30 05:30 06:04 WBC (4.0-11.0) K/uL RBC (4.30-5.90) M/uL Hgb (12.0-16.0) g/dL Hct (36.0-46.0) % MCV (80.0-98.0) fL MCH (27.0-32.0) pg MCHC (31.0-37.0) g/dL RDW Std Deviation (28.0-62.0) fl RDW Coeff of Jocy (11.0-15.0) % Plt Count (150-400) K/uL MPV (7.40-12.00) fL Neut % (Auto) (48.0-80.0) % Lymph % (Auto) (16.0-40.0) % [place] % (Auto) (0.0-15.0) % Eos % (Auto) (0.0-7.0) % Baso % (Auto) (0.0-1.5) % Neut # (Auto) (1.4-5.7) K/uL Lymph # (Auto) (0.6-2.4) K/uL [place] # (Auto) (0.0-0.8) K/uL Eos # (Auto) (0.0-0.7) K/uL Baso # (Auto) (0.0-0.1) K/uL Nucleated RBC % /100WBC Nucleated RBCs # K/uL Sodium 142 (136-145) mmol/L Potassium 3.2 L (3.5-5.1) mmol/L Chloride 105 (98-107) mmol/L Carbon Dioxide 27.1 (21.0-32.0) mmol/L BUN 14 (7.0-18.0) mg/dL Creatinine 3.2 H (0.6-1.0) mg/dL Est Cr Clr Drug Dosing 27.95 mL/min Estimated GFR (MDRD) 16.7 ml/min Glucose 150 H (74-106) mg/dL POC Glucose 137 H (60-110) mg/dL Calcium 8.5 (8.5-10.1) mg/dL Magnesium 1.9 (1.8-2.4) mg/dL 03/29/19 Range/Units 11:44 WBC (4.0-11.0) K/uL RBC (4.30-5.90) M/uL Hgb (12.0-16.0) g/dL Hct (36.0-46.0) % MCV (80.0-98.0) fL MCH (27.0-32.0) pg MCHC (31.0-37.0) g/dL RDW Std Deviation (28.0-62.0) fl RDW Coeff of Jocy (11.0-15.0) % Plt Count (150-400) K/uL MPV (7.40-12.00) fL Neut % (Auto) (48.0-80.0) % Lymph % (Auto) (16.0-40.0) % [place] % (Auto) (0.0-15.0) % Eos % (Auto) (0.0-7.0) % Baso % (Auto) (0.0-1.5) % Neut # (Auto) (1.4-5.7) K/uL Lymph # (Auto) (0.6-2.4) K/uL [place] # (Auto) (0.0-0.8) K/uL Eos # (Auto) (0.0-0.7) K/uL Baso # (Auto) (0.0-0.1) K/uL Nucleated RBC % /100WBC Nucleated RBCs # K/uL Sodium (136-145) mmol/L Potassium (3.5-5.1) mmol/L Chloride (98-107) mmol/L Carbon Dioxide (21.0-32.0) mmol/L BUN (7.0-18.0) mg/dL Creatinine (0.6-1.0) mg/dL Est Cr Clr Drug Dosing mL/min Estimated GFR (MDRD) ml/min Glucose (74-106) mg/dL POC Glucose 173 H (60-110) mg/dL Calcium (8.5-10.1) mg/dL Magnesium (1.8-2.4) mg/dL [place] Results Last 24 Hours: Microbiology 03/27/19 10:54 Urine Culture - Final Urine, Clean Catch No Growth 03/25/19 08:09 Gram Stain - Final Perirectal 03/25/19 00:25 Aerobic Blood Culture - Preliminary Blood - Venous - Lab Draw NO GROWTH AFTER 4 DAYS Anaerobic Blood Culture - Preliminary NO GROWTH AFTER 4 DAYS 03/25/19 00:05 Aerobic Blood Culture - Preliminary Blood - Venous NO GROWTH AFTER 4 DAYS Anaerobic Blood Culture - Preliminary NO GROWTH AFTER 4 DAYS 03/25/19 08:09 Anaerobic Culture - Preliminary Wound - Perianal Med Orders - Current: Current Medications Acetaminophen (Tylenol) 650 mg PO Q4H PRN PRN Reason: Pain (mild 1-3) Last Admin: 03/26/19 15:17 Dose: 650 mg Docusate Sodium (Colace) 100 mg PO BID PRN PRN Reason: Constipation Last Admin: 03/26/19 14:01 Dose: 100 mg Ceftriaxone Sodium/Dextrose 2 (gm/ Premix) 50 mls @ 100 mls/hr IV Q24H [facility] Last Admin: 03/29/19 10:41 Dose: 100 mls/hr Insulin Aspart (Novolog) 0 unit SUBCUT TIDAC [facility]; Protocol Last Admin: 03/29/19 06:55 Dose: Not Given Insulin Glargine (Lantus Solostar) 17 units SUBCUT BEDTIME [facility] Last Admin: 03/28/19 21:13 Dose: 17 units Morphine Sulfate (Morphine) 2 mg IVPUSH Q2H PRN PRN Reason: Pain Last Admin: 03/26/19 17:34 Dose: 2 mg Ondansetron HCl (Zofran) 4 mg IVPUSH Q4H PRN PRN Reason: Nausea Last Admin: 03/27/19 02:36 Dose: 4 mg Oxycodone/Acetaminophen (Percocet 325-10 Mg) 1 tab PO Q8H PRN PRN Reason: Pain Last Admin: 03/27/19 03:33 Dose: 1 tab Sodium Chloride (Saline Flush) 10 ml FLUSH ASDIRECTED PRN PRN Reason: Keep Vein Open Sodium Chloride (Saline Flush) 2.5 ml FLUSH ASDIRECTED PRN PRN Reason: Keep Vein Open Discontinued Medications Acetaminophen (Tylenol Extra Strength) 1,000 mg PO ONETIME ONE Stop: 03/25/19 00:00 Last Admin: 03/25/19 00:04 Dose: 1,000 mg Albuterol (Proventil Neb Soln) 2.5 mg NEB ONETIME PRN PRN Reason: Wheezing Atropine Sulfate (Atropine 0.1 Mg/Ml) 0.5 mg IVPUSH ASDIRECTED PRN PRN Reason: Hypo-perfusion Atropine Sulfate (Atropine 0.1 Mg/Ml) 1 mg IVPUSH ASDIRECTED PRN PRN Reason: Hypo-Perfusion Dextrose/Water (Dextrose 50% In Water) 50 ml IVPUSH ASDIRECTED PRN PRN Reason: Hypoglycemia Epinephrine HCl (Epinephrine 1:10,000) 1 mg IVPUSH ASDIRECTED PRN PRN Reason: ACLS Guidelines Fentanyl (Sublimaze) Confirm Administered Dose 250 mcg .ROUTE .STK-MED ONE Stop: 03/25/19 07:01 Fentanyl (Sublimaze) 50 - 100 mcg IVPUSH Q5M PRN PRN Reason: Pain Sodium Chloride (Normal Saline) 1,000 mls @ 999 mls/hr IV STAT ONE Stop: 03/25/19 00:59 Last Admin: 03/25/19 00:04 Dose: 999 mls/hr Sodium Chloride (Normal Saline) 1,000 mls @ 999 mls/hr IV .Bolus ONE Stop: 03/25/19 01:47 Last Admin: 03/25/19 00:48 Dose: 999 mls/hr Piperacillin Sod/Tazobactam (Sod 4.5 gm/ Sodium Chloride) 100 mls @ 100 mls/hr IV ONETIME ONE Stop: 03/25/19 02:08 Last Admin: 03/25/19 01:20 Dose: 100 mls/hr Sodium Chloride (Normal Saline) 1,000 mls @ 150 mls/hr IV ASDIRECTED [facility] Last Admin: 03/25/19 01:20 Dose: 150 mls/hr Clindamycin Phosphate 900 mg/ (Premix) 50 mls @ 100 mls/hr IV ONETIME ONE Stop: 03/25/19 03:45 Last Admin: 03/25/19 03:32 Dose: 100 mls/hr Bupivacaine HCl/Epinephrine Bitart (Sensorc Mpf 0.25%-Epi 1:365302) Confirm Administered Dose 30 mls @ as directed .ROUTE .STK-MED ONE Stop: 03/25/19 07:23 Clindamycin Phosphate 300 mg/ (Premix) 50 mls @ 150 mls/hr IV Q6H [facility] Piperacillin Sod/Tazobactam (Sod 4.5 gm/ Sodium Chloride) 100 mls @ 100 mls/hr IV Q6H [facility] Last Admin: 03/26/19 10:01 Dose: 100 mls/hr Sodium Chloride (Normal Saline) 1,000 mls @ 150 mls/hr IV Q6H [facility] Last Admin: 03/26/19 16:54 Dose: Not Given Vancomycin HCl 2 gm/ Sodium (Chloride) 500 mls @ 250 mls/hr IV Q12H [facility] Last Admin: 03/26/19 04:03 Dose: Not Given Magnesium Sulfate 2 gm/ Premix 50 mls @ 50 mls/hr IV ONETIME ONE Stop: 03/25/19 12:01 Last Admin: 03/25/19 11:15 Dose: 50 mls/hr Sodium Chloride (Normal Saline) 500 mls @ 999 mls/hr IV .BOLUS [facility] Last Admin: 03/25/19 16:56 Dose: 999 mls/hr Vancomycin HCl 2 gm/ Sodium (Chloride) 500 mls @ 250 mls/hr IV Q12H [facility] Last Admin: 03/27/19 02:30 Dose: 250 mls/hr Sodium Chloride (Normal Saline) 1,000 mls @ 125 mls/hr IV ASDIRECTED [facility] Last Admin: 03/27/19 09:09 Dose: 125 mls/hr Ibuprofen (Motrin) 800 mg PO ONETIME ONE Stop: 03/25/19 00:50 Last Admin: 03/25/19 00:53 Dose: 800 mg Insulin Aspart (Novolog) 0 unit SUBCUT TIDAC [facility]; Protocol Last Admin: 03/25/19 12:22 Dose: 2 units Insulin Glargine (Lantus Solostar) 15 units SUBCUT BEDTIME [facility] Last Admin: 03/26/19 21:42 Dose: 15 units Insulin Human Regular (Novolin R) 8 unit SUBCUT ONETIME ONE; Protocol Stop: 03/25/19 02:17 Last Admin: 03/25/19 02:24 Dose: 6 units Iopamidol (Isovue-370 (76%)) 100 ml IVPUSH ONETIME STA Stop: 03/25/19 01:17 Last Admin: 03/25/19 01:28 Dose: 100 ml Ketorolac Tromethamine (Toradol) 30 mg IVPUSH ONETIME ONE Stop: 03/25/19 00:26 Last Admin: 03/25/19 00:36 Dose: 30 mg Lidocaine (Xylocaine-Mpf 2%) Confirm Administered Dose 5 ml .ROUTE .STK-MED ONE Stop: 03/25/19 07:01 Midazolam HCl (Versed 1 Mg/Ml) Confirm Administered Dose 2 mg .ROUTE .STK-MED ONE Stop: 03/25/19 07:00 Morphine Sulfate (Morphine) 4 mg IVPUSH ONETIME ONE Stop: 03/25/19 00:26 Last Admin: 03/25/19 00:37 Dose: 4 mg Morphine Sulfate (Morphine) 4 mg IVPUSH ONETIME ONE Stop: 03/25/19 01:42 Last Admin: 03/25/19 01:47 Dose: 4 mg Naloxone HCl (Narcan) 0.1 mg IVPUSH ASDIRECTED PRN PRN Reason: Respiratory Depression Ondansetron HCl (Zofran) 4 mg IVPUSH ONETIME ONE Stop: 03/25/19 00:26 Last Admin: 03/25/19 00:37 Dose: 4 mg Ondansetron HCl (Zofran) Confirm Administered Dose 4 mg .ROUTE .STK-MED ONE Stop: 03/25/19 07:01 Phenylephrine HCl (Phenylephrine In Ns 100 Mcg/Ml) Confirm Administered Dose 1 mg .ROUTE .STK-MED ONE Stop: 03/25/19 08:06 Potassium Chloride (Klor-Con M20) 40 meq PO ONETIME ONE Stop: 03/29/19 10:21 Last Admin: 03/29/19 10:45 Dose: 40 meq Propofol (Diprivan 20 Ml) Confirm Administered Dose 200 mg .ROUTE .STK-MED ONE Stop: 03/25/19 07:00 Propofol (Diprivan 20 Ml) Confirm Administered Dose 200 mg .ROUTE .STK-MED ONE Stop: 03/25/19 07:38 Rocuronium [place] (Zemuron) Confirm Administered Dose 100 mg .ROUTE .STK-MED ONE Stop: 03/25/19 07:01 Vancomycin HCl (Pharmacy To Dose - Vancomycin) 1 dose .XX ASDIRECTED [facility] - Exam General: Alert, Oriented, Cooperative Lungs: Clear to Auscultation, Normal Respiratory Effort Cardiovascular: Regular Rate, Regular Rhythm GI/Abdominal Exam: Normal Bowel Sounds, Soft, Non-Tender, No Distention Extremities: No Pedal Edema Neurological: No New Focal Deficit Psy/Mental Status: Alert, Normal Affect, Normal Mood Sepsis Event Note - Evaluation Sepsis Screening Result: No Definite Risk - Focused Exam Vital Signs: Vital Signs Temp Pulse Resp BP BP Pulse Ox Pulse Ox 03/29/19 11:45 97.4 F 72 18 138/73 96 03/29/19 09:00 97 03/29/19 07:44 97.7 F 78 14 147/81 H 97 03/29/19 04:00 98.1 F 94 18 130/58 L 94 L 03/29/19 00:17 98 F 78 18 136/75 96 Date Exam was Performed: 03/29/19 Time Exam was Performed: 12:03 - Problem List Review Problem List Initiated/Reviewed/Updated: Yes - Plan Plan:: 1. Perirectal abscess s/p I&D: continue Rocephin and dressing changes, cultures pending 2. [place]: improving- Cr down from 3.5 to 3.2-avoiding nephrotoxic agents, patient making urine, continue to monitor 3. DM: lantus 17 units qhs, ssi. DNE will see today
[2019-03-29] MEDS: Insulin Glargine,Human Rec. Analog 100 Units/ML 3 ML Pen SUBCUT SCH (20:56)
[2019-03-30 06:48] LABS: CARBON DIOXIDE,CO2 25.7 mmol/L (21.0-32.0); POTASSIUM,K 3.2 mmol/L (3.5-5.1)
[2019-03-30] MEDS: Insulin Aspart 100 Units/ML 3 ML Pen SUBCUT SCH ×3 (07:00→16:39)
--- NOTE | 2019-03-30 09:17 | PCM.PN ---
- General Info Date of Service: 03/30/19 Subjective Update: Patient reports she feels fine, wants to go home, not sleeping well, tolerating oral diet. - Review of Systems General: Reports: No Symptoms HEENT: Reports: No Symptoms Pulmonary: Reports: No Symptoms Cardiovascular: Reports: No Symptoms Gastrointestinal: Reports: No Symptoms Genitourinary: Reports: No Symptoms Musculoskeletal: Reports: No Symptoms Skin: Reports: No Symptoms Neurological: Reports: No Symptoms Psychiatric: Reports: No Symptoms - Patient Data Vitals - Most Recent: Last Vital Signs Temp 98.2 F 03/30/19 08:00 Pulse 75 03/30/19 08:00 Resp 16 03/30/19 08:00 BP 136/75 03/30/19 08:00 Pulse Ox 96 03/30/19 08:00 Weight - Most Recent: 140.886 kg I&O - Last 24 Hours: Intake & Output 03/29/19 03/30/19 03/30/19 22:59 06:59 14:59 Intake Total 750 800 Output Total 1100 Balance 750 -300 Lab Results Last 24 Hours: Laboratory Results - last 24 hr 03/29/19 03/29/19 03/29/19 Range/Units 05:30 11:44 17:39 WBC (4.0-11.0) K/uL RBC (4.30-5.90) M/uL Hgb (12.0-16.0) g/dL Hct (36.0-46.0) % MCV (80.0-98.0) fL MCH (27.0-32.0) pg MCHC (31.0-37.0) g/dL RDW Std Deviation (28.0-62.0) fl RDW Coeff of Jocy (11.0-15.0) % Plt Count (150-400) K/uL MPV (7.40-12.00) fL Neut % (Auto) (48.0-80.0) % Lymph % (Auto) (16.0-40.0) % [place] % (Auto) (0.0-15.0) % Eos % (Auto) (0.0-7.0) % Baso % (Auto) (0.0-1.5) % Neut # (Auto) (1.4-5.7) K/uL Lymph # (Auto) (0.6-2.4) K/uL [place] # (Auto) (0.0-0.8) K/uL Eos # (Auto) (0.0-0.7) K/uL Baso # (Auto) (0.0-0.1) K/uL Nucleated RBC % /100WBC Nucleated RBCs # K/uL Sodium (136-145) mmol/L Potassium (3.5-5.1) mmol/L Chloride (98-107) mmol/L Carbon Dioxide (21.0-32.0) mmol/L BUN (7.0-18.0) mg/dL Creatinine (0.6-1.0) mg/dL Est Cr Clr Drug Dosing mL/min Estimated GFR (MDRD) ml/min Glucose (74-106) mg/dL POC Glucose 173 H 125 H (60-110) mg/dL Calcium (8.5-10.1) mg/dL Magnesium 1.9 (1.8-2.4) mg/dL 03/29/19 03/30/19 03/30/19 Range/Units 20:48 06:05 06:05 WBC 13.24 H (4.0-11.0) K/uL RBC 4.75 (4.30-5.90) M/uL Hgb 13.5 (12.0-16.0) g/dL Hct 40.1 (36.0-46.0) % MCV 84.4 (80.0-98.0) fL MCH 28.4 (27.0-32.0) pg MCHC 33.7 (31.0-37.0) g/dL RDW Std Deviation 40.3 (28.0-62.0) fl RDW Coeff of Jocy 13 (11.0-15.0) % Plt Count 386 (150-400) K/uL MPV 9.10 (7.40-12.00) fL Neut % (Auto) 69.3 (48.0-80.0) % Lymph % (Auto) 20.7 (16.0-40.0) % [place] % (Auto) 7.5 (0.0-15.0) % Eos % (Auto) 2.1 (0.0-7.0) % Baso % (Auto) 0.4 (0.0-1.5) % Neut # (Auto) 9.2 H (1.4-5.7) K/uL Lymph # (Auto) 2.7 H (0.6-2.4) K/uL [place] # (Auto) 1.0 H (0.0-0.8) K/uL Eos # (Auto) 0.3 (0.0-0.7) K/uL Baso # (Auto) 0.1 (0.0-0.1) K/uL Nucleated RBC % 0.0 /100WBC Nucleated RBCs # 0 K/uL Sodium 141 (136-145) mmol/L Potassium 3.2 L (3.5-5.1) mmol/L Chloride 103 (98-107) mmol/L Carbon Dioxide 25.7 (21.0-32.0) mmol/L BUN 16 (7.0-18.0) mg/dL Creatinine 2.6 H (0.6-1.0) mg/dL Est Cr Clr Drug Dosing 34.40 mL/min Estimated GFR (MDRD) 21.2 ml/min Glucose 129 H (74-106) mg/dL POC Glucose 185 H (60-110) mg/dL Calcium 8.5 (8.5-10.1) mg/dL Magnesium (1.8-2.4) mg/dL 03/30/19 Range/Units 06:12 WBC (4.0-11.0) K/uL RBC (4.30-5.90) M/uL Hgb (12.0-16.0) g/dL Hct (36.0-46.0) % MCV (80.0-98.0) fL MCH (27.0-32.0) pg MCHC (31.0-37.0) g/dL RDW Std Deviation (28.0-62.0) fl RDW Coeff of Jocy (11.0-15.0) % Plt Count (150-400) K/uL MPV (7.40-12.00) fL Neut % (Auto) (48.0-80.0) % Lymph % (Auto) (16.0-40.0) % [place] % (Auto) (0.0-15.0) % Eos % (Auto) (0.0-7.0) % Baso % (Auto) (0.0-1.5) % Neut # (Auto) (1.4-5.7) K/uL Lymph # (Auto) (0.6-2.4) K/uL [place] # (Auto) (0.0-0.8) K/uL Eos # (Auto) (0.0-0.7) K/uL Baso # (Auto) (0.0-0.1) K/uL Nucleated RBC % /100WBC Nucleated RBCs # K/uL Sodium (136-145) mmol/L Potassium (3.5-5.1) mmol/L Chloride (98-107) mmol/L Carbon Dioxide (21.0-32.0) mmol/L BUN (7.0-18.0) mg/dL Creatinine (0.6-1.0) mg/dL Est Cr Clr Drug Dosing mL/min Estimated GFR (MDRD) ml/min Glucose (74-106) mg/dL POC Glucose 111 H (60-110) mg/dL Calcium (8.5-10.1) mg/dL Magnesium (1.8-2.4) mg/dL [place] Results Last 24 Hours: Microbiology 03/25/19 00:25 Aerobic Blood Culture - Final Blood - Venous - Lab Draw NO GROWTH AFTER 5 DAYS Anaerobic Blood Culture - Final NO GROWTH AFTER 5 DAYS 03/25/19 00:05 Aerobic Blood Culture - Final Blood - Venous NO GROWTH AFTER 5 DAYS Anaerobic Blood Culture - Final NO GROWTH AFTER 5 DAYS 03/27/19 10:54 Urine Culture - Final Urine, Clean Catch No Growth 03/25/19 08:09 Gram Stain - Final Perirectal Med Orders - Current: Current Medications Acetaminophen (Tylenol) 650 mg PO Q4H PRN PRN Reason: Pain (mild 1-3) Last Admin: 03/26/19 15:17 Dose: 650 mg Docusate Sodium (Colace) 100 mg PO BID PRN PRN Reason: Constipation Last Admin: 03/26/19 14:01 Dose: 100 mg Ceftriaxone Sodium/Dextrose 2 (gm/ Premix) 50 mls @ 100 mls/hr IV Q24H [facility] Last Admin: 03/29/19 10:41 Dose: 100 mls/hr Insulin Aspart (Novolog) 0 unit SUBCUT [facility]; Protocol Last Admin: 03/30/19 07:00 Dose: Not Given Insulin Glargine (Lantus Solostar) 17 units SUBCUT BEDTIME [facility] Last Admin: 03/29/19 20:56 Dose: 17 units Morphine Sulfate (Morphine) 2 mg IVPUSH Q2H PRN PRN Reason: Pain Last Admin: 03/26/19 17:34 Dose: 2 mg Ondansetron HCl (Zofran) 4 mg IVPUSH Q4H PRN PRN Reason: Nausea Last Admin: 03/27/19 02:36 Dose: 4 mg Oxycodone/Acetaminophen (Percocet 325-10 Mg) 1 tab PO Q8H PRN PRN Reason: Pain Last Admin: 03/27/19 03:33 Dose: 1 tab Sodium Chloride (Saline Flush) 10 ml FLUSH ASDIRECTED PRN PRN Reason: Keep Vein Open Sodium Chloride (Saline Flush) 2.5 ml FLUSH ASDIRECTED PRN PRN Reason: Keep Vein Open Discontinued Medications Acetaminophen (Tylenol Extra Strength) 1,000 mg PO ONETIME ONE Stop: 03/25/19 00:00 Last Admin: 03/25/19 00:04 Dose: 1,000 mg Albuterol (Proventil Neb Soln) 2.5 mg NEB ONETIME PRN PRN Reason: Wheezing Atropine Sulfate (Atropine 0.1 Mg/Ml) 0.5 mg IVPUSH ASDIRECTED PRN PRN Reason: Hypo-perfusion Atropine Sulfate (Atropine 0.1 Mg/Ml) 1 mg IVPUSH ASDIRECTED PRN PRN Reason: Hypo-Perfusion Dextrose/Water (Dextrose 50% In Water) 50 ml IVPUSH ASDIRECTED PRN PRN Reason: Hypoglycemia Epinephrine HCl (Epinephrine 1:10,000) 1 mg IVPUSH ASDIRECTED PRN PRN Reason: ACLS Guidelines Fentanyl (Sublimaze) Confirm Administered Dose 250 mcg .ROUTE .STK-MED ONE Stop: 03/25/19 07:01 Fentanyl (Sublimaze) 50 - 100 mcg IVPUSH Q5M PRN PRN Reason: Pain Sodium Chloride (Normal Saline) 1,000 mls @ 999 mls/hr IV STAT ONE Stop: 03/25/19 00:59 Last Admin: 03/25/19 00:04 Dose: 999 mls/hr Sodium Chloride (Normal Saline) 1,000 mls @ 999 mls/hr IV .Bolus ONE Stop: 03/25/19 01:47 Last Admin: 03/25/19 00:48 Dose: 999 mls/hr Piperacillin Sod/Tazobactam (Sod 4.5 gm/ Sodium Chloride) 100 mls @ 100 mls/hr IV ONETIME ONE Stop: 03/25/19 02:08 Last Admin: 03/25/19 01:20 Dose: 100 mls/hr Sodium Chloride (Normal Saline) 1,000 mls @ 150 mls/hr IV ASDIRECTED [facility] Last Admin: 03/25/19 01:20 Dose: 150 mls/hr Clindamycin Phosphate 900 mg/ (Premix) 50 mls @ 100 mls/hr IV ONETIME ONE Stop: 03/25/19 03:45 Last Admin: 03/25/19 03:32 Dose: 100 mls/hr Bupivacaine HCl/Epinephrine Bitart (Sensorc Mpf 0.25%-Epi 1:[id number]) Confirm Administered Dose 30 mls @ as directed .ROUTE .STK-MED ONE Stop: 03/25/19 07:23 Clindamycin Phosphate 300 mg/ (Premix) 50 mls @ 150 mls/hr IV Q6H [facility] Piperacillin Sod/Tazobactam (Sod 4.5 gm/ Sodium Chloride) 100 mls @ 100 mls/hr IV Q6H [facility] Last Admin: 03/26/19 10:01 Dose: 100 mls/hr Sodium Chloride (Normal Saline) 1,000 mls @ 150 mls/hr IV Q6H [facility] Last Admin: 03/26/19 16:54 Dose: Not Given Vancomycin HCl 2 gm/ Sodium (Chloride) 500 mls @ 250 mls/hr IV Q12H [facility] Last Admin: 03/26/19 04:03 Dose: Not Given Magnesium Sulfate 2 gm/ Premix 50 mls @ 50 mls/hr IV ONETIME ONE Stop: 03/25/19 12:01 Last Admin: 03/25/19 11:15 Dose: 50 mls/hr Sodium Chloride (Normal Saline) 500 mls @ 999 mls/hr IV .BOLUS [facility] Last Admin: 03/25/19 16:56 Dose: 999 mls/hr Vancomycin HCl 2 gm/ Sodium (Chloride) 500 mls @ 250 mls/hr IV Q12H [facility] Last Admin: 03/27/19 02:30 Dose: 250 mls/hr Sodium Chloride (Normal Saline) 1,000 mls @ 125 mls/hr IV ASDIRECTED GOLDY Last Admin: 03/27/19 09:09 Dose: 125 mls/hr Ibuprofen (Motrin) 800 mg PO ONETIME ONE Stop: 03/25/19 00:50 Last Admin: 03/25/19 00:53 Dose: 800 mg Insulin Aspart (Novolog) 0 unit SUBCUT TIDAC G[facility]; Protocol Last Admin: 03/25/19 12:22 Dose: 2 units Insulin Glargine (Lantus Solostar) 15 units SUBCUT BEDTIME [facility] Last Admin: 03/26/19 21:42 Dose: 15 units Insulin Human Regular (Novolin R) 8 unit SUBCUT ONETIME ONE; Protocol Stop: 03/25/19 02:17 Last Admin: 03/25/19 02:24 Dose: 6 units Iopamidol (Isovue-370 (76%)) 100 ml IVPUSH ONETIME STA Stop: 03/25/19 01:17 Last Admin: 03/25/19 01:28 Dose: 100 ml Ketorolac Tromethamine (Toradol) 30 mg IVPUSH ONETIME ONE Stop: 03/25/19 00:26 Last Admin: 03/25/19 00:36 Dose: 30 mg Lidocaine (Xylocaine-Mpf 2%) Confirm Administered Dose 5 ml .ROUTE .STK-MED ONE Stop: 03/25/19 07:01 Midazolam HCl (Versed 1 Mg/Ml) Confirm Administered Dose 2 mg .ROUTE .STK-MED ONE Stop: 03/25/19 07:00 Morphine Sulfate (Morphine) 4 mg IVPUSH ONETIME ONE Stop: 03/25/19 00:26 Last Admin: 03/25/19 00:37 Dose: 4 mg Morphine Sulfate (Morphine) 4 mg IVPUSH ONETIME ONE Stop: 03/25/19 01:42 Last Admin: 03/25/19 01:47 Dose: 4 mg Naloxone HCl (Narcan) 0.1 mg IVPUSH ASDIRECTED PRN PRN Reason: Respiratory Depression Ondansetron HCl (Zofran) 4 mg IVPUSH ONETIME ONE Stop: 03/25/19 00:26 Last Admin: 03/25/19 00:37 Dose: 4 mg Ondansetron HCl (Zofran) Confirm Administered Dose 4 mg .ROUTE .STK-MED ONE Stop: 03/25/19 07:01 Phenylephrine HCl (Phenylephrine In Ns 100 Mcg/Ml) Confirm Administered Dose 1 mg .ROUTE .STK-MED ONE Stop: 03/25/19 08:06 Potassium Chloride (Klor-Con M20) 40 meq PO ONETIME ONE Stop: 03/29/19 10:21 Last Admin: 03/29/19 10:45 Dose: 40 meq Propofol (Diprivan 20 Ml) Confirm Administered Dose 200 mg .ROUTE .STK-MED ONE Stop: 03/25/19 07:00 Propofol (Diprivan 20 Ml) Confirm Administered Dose 200 mg .ROUTE .STK-MED ONE Stop: 03/25/19 07:38 Rocuronium [place] (Zemuron) Confirm Administered Dose 100 mg .ROUTE .STK-MED ONE Stop: 03/25/19 07:01 Vancomycin HCl (Pharmacy To Dose - Vancomycin) 1 dose .XX ASDIRECTED GOLDY - Exam General: Alert, Oriented, Cooperative Lungs: Clear to Auscultation, Normal Respiratory Effort Cardiovascular: Regular Rate, Regular Rhythm GI/Abdominal Exam: Normal Bowel Sounds, Soft, Non-Tender, No Distention Extremities: No Pedal Edema Skin: Warm, Dry Neurological: No New Focal Deficit Psy/Mental Status: Alert, Normal Affect, Normal Mood Sepsis Event Note - Evaluation Sepsis Screening Result: No Definite Risk - Focused Exam Vital Signs: Vital Signs Temp Pulse Resp BP BP Pulse Ox 03/30/19 08:00 98.2 F 75 16 136/75 96 03/30/19 04:00 97.9 F 62 14 122/59 L 93 L 03/30/19 03:35 97.9 F 62 14 122/59 L 93 L 03/30/19 01:41 98.3 F 67 17 112/58 L 97 Date Exam was Performed: 03/30/19 Time Exam was Performed: 10:42 - Problem List Review Problem List Initiated/Reviewed/Updated: Yes - Plan Plan:: 1. Perirectal abscess s/p I&D: continue Rocephin and dressing changes, cultures pending 2. [place]: improving- Cr down from3.2 to 2.6 avoiding nephrotoxic agents, patient making urine, continue to monitor 3. DM: lantus 17 units qhs, ssi. DNE saw her. Educated her on diabetes, gave her a meter, explained how to check blood sugars. Will give her samples of Lantus and short acting for meals. Will also discharge on metformin. Plans to see her on Friday for followup.
[2019-03-30] MEDS: cefTRIAXone 2 GM in Premix Bag 1 BAG IV SCH (11:12)
[2019-03-30] MEDS: metroNIDAZOLE/Normal Saline 500 MG in Premix Bag 1 BAG IV SCH ×2 (12:41→17:36)
[2019-03-30] MEDS: Insulin Glargine,Human Rec. Analog 100 Units/ML 3 ML Pen SUBCUT SCH (21:00)
[2019-03-31] MEDS: metroNIDAZOLE/Normal Saline 500 MG in Premix Bag 1 BAG IV SCH ×3 (00:04→13:00)
[2019-03-31 06:38] LABS: CARBON DIOXIDE,CO2 27.1 mmol/L (21.0-32.0); POTASSIUM,K 3.3 mmol/L (3.5-5.1)
[2019-03-31] MEDS: Insulin Aspart 100 Units/ML 3 ML Pen SUBCUT SCH ×2 (07:35→11:48)
--- NOTE | 2019-03-31 08:48 | PCM.DCSUM1 ---
<Ann Johnson - Last Filed: 03/31/19 12:26> Discharge Summary - Hospital Course HPI Initial Comments: Admission Date: 03/25/19 Discharge Date: 03/31/19 Admission Diagnosis: 1. Perirectal abscess 2. New onset DMII Discharge Diagnosis: 1. Perirectal abscess s/p I&D 2. New onset DMII 3. FLORENCE- improved Procedures: I&D Consults: General surgery, DNE Hospital Course: This is a 33-year-old female with pmh of obesity who presented to the ER with c/o of a "bump" to the right side of her gluteal cleft. Work up showed elevated leukocytosis of 22, lactic acid wnl glucose of 305, HA1c of 9.6 , CT showed abscess. Started on Clindamycin and Zosyn in ER. On the day of admission, patient was taken to operating room by Dr. PERALTA and underwent I&D of abscess. In the ER she developed hypotension and tachycardia. Her antibiotics were switched to Vancomycin and Zosyn once out of surgery. Eventually this was transitioned to Vancomycin and Rocephin. Wound cultures collected and grew out Enterococcus Facelis. She was newly diagnosed with DMII, started on Lantus and sliding scale. DNE met with her and educated her on diet, checking blood sugars , and gave her samples. She did develop an FLORENCE, this was discussed with nephrology and thought to be due towards contrast, hypotension, and possible due to Vancomycin. Nephrotoxic agents were held so Vancomycin was stopped, she was producing urine and eventually her creatine was trending down. Disposition: Home Discharge Condition: vitals stable, tolerating oral diet, ambulating without difficulty, symptom improvement Discharge Instructions: diabetic diet as tolerated, activity as tolerated, take medications as prescribed. Symptoms to report to physician include fever/chills , chest pain, shortness of breath, abdominal pain, erythema, drainage/discharge , or not improving as expected. Discharge Medications: Multivitamin [Multi-Vitamin Daily] 1 ea PO DAILY 03/25/19 [History] Amoxicillin/Potassium Clav [Augmentin 875-125 Tablet] 1 each PO BID 4 Days #8 tablet 03/31/19 [Rx] metFORMIN [Glucophage] 500 mg PO BIDMEALS 7 Days #14 tab 03/31/19 [Rx] Lantus 17 unit SubQ daily Novolog sliding scale with meals Follow-up: 1. PCP- Carmelita Feliciano 04/02/19- recheck kidney function 2. General Surgery- Dr. Perlata 04/15/19 3. DNE 04/05/19 - Discharge Data Discharge Date: 03/31/19 Discharge Disposition: Home, Self-Care 01 Condition: Stable - Referral to Home Health Primary Care Physician: PCP None - Patient Summary/Data Operative Procedure(s) Performed: i/d perirectal abscess Consults: Consultations 03/25/19 02:24 Consult to Physician [CONS] Stat 03/25/19 09:38 Consult to Vp Of Product [Consult to Diabetic Nurse Specialist] [CONS] Routine - Discharge Plan Prescriptions/Med Rec: Amoxicillin/Potassium Clav [Augmentin 875-125 Tablet] 1 each PO BID 4 Days #8 tablet metFORMIN [Glucophage] 500 mg PO BIDMEALS 7 Days #14 tab Home Medications: Home Meds Multivitamin [Multi-Vitamin Daily] 1 ea PO DAILY 03/25/19 [History] Amoxicillin/Potassium Clav [Augmentin 875-125 Tablet] 1 each PO BID 4 Days #8 tablet 03/31/19 [Rx] metFORMIN [Glucophage] 500 mg PO BIDMEALS 7 Days #14 tab 03/31/19 [Rx] Patient Handouts: Type 2 Diabetes Mellitus, Diagnosis, Adult, Amoxicillin capsules or tablets, Insulin Injection Instructions, Using Insulin Pens, Adult, Incision and Drainage, Care After, Metformin tablets Referrals: Carmelita Ramirez NP [Nurse Practitioner] - 04/02/19 3:15 pm Saúl Peralta MD [Physician] - 04/15/19 10:45 am - Discharge Summary/Plan Comment DC Time >30 min.: No - Patient Data Vitals - Most Recent: Last Vital Signs Temp 97.6 F 03/31/19 04:00 Pulse 65 03/31/19 04:00 Resp 16 03/31/19 04:00 BP 105/54 L 03/31/19 04:00 Pulse Ox 96 03/31/19 04:00 Weight - Most Recent: 140.886 kg I&O - Last 24 hours: Intake & Output 03/30/19 03/31/19 03/31/19 22:59 06:59 14:59 Intake Total 1200 1200 Output Total 1800 1300 Balance -600 -100 Lab Results - Last 24 hrs: Laboratory Results - last 24 hr 03/30/19 03/30/19 03/30/19 Range/Units 11:18 16:17 20:56 WBC (4.0-11.0) K/uL RBC (4.30-5.90) M/uL Hgb (12.0-16.0) g/dL Hct (36.0-46.0) % MCV (80.0-98.0) fL MCH (27.0-32.0) pg MCHC (31.0-37.0) g/dL RDW Std Deviation (28.0-62.0) fl RDW Coeff of Jocy (11.0-15.0) % Plt Count (150-400) K/uL MPV (7.40-12.00) fL Add Manual Diff Neutrophils % (Manual) (48.0-80.0) % Band Neutrophils % % Lymphocytes % (Manual) (16.0-40.0) % Monocytes % (Manual) (0.0-15.0) % Eosinophils % (Manual) (0.0-7.0) % Nucleated RBC % /100WBC Absolute Seg Neuts (1.4-5.7) Band Neutrophils # Lymphocytes # (Manual) (0.6-2.4) Monocytes # (Manual) (0.0-0.8) Eosinophils # (Manual) (0.0-0.7) Nucleated RBCs # K/uL Sodium (136-145) mmol/L Potassium (3.5-5.1) mmol/L Chloride (98-107) mmol/L Carbon Dioxide (21.0-32.0) mmol/L BUN (7.0-18.0) mg/dL Creatinine (0.6-1.0) mg/dL Est Cr Clr Drug Dosing mL/min Estimated GFR (MDRD) ml/min Glucose (74-106) mg/dL POC Glucose 161 H 133 H 140 H (60-110) mg/dL Calcium (8.5-10.1) mg/dL 03/31/19 03/31/19 03/31/19 Range/Units 06:03 06:03 06:27 WBC 14.42 H (4.0-11.0) K/uL RBC 4.76 (4.30-5.90) M/uL Hgb 13.6 (12.0-16.0) g/dL Hct 40.1 (36.0-46.0) % MCV 84.2 (80.0-98.0) fL MCH 28.6 (27.0-32.0) pg MCHC 33.9 (31.0-37.0) g/dL RDW Std Deviation 40.2 (28.0-62.0) fl RDW Coeff of Jocy 13 (11.0-15.0) % Plt Count 418 H (150-400) K/uL MPV 9.10 (7.40-12.00) fL Add Manual Diff YES Neutrophils % (Manual) 66 (48.0-80.0) % Band Neutrophils % 6 % Lymphocytes % (Manual) 21 (16.0-40.0) % Monocytes % (Manual) 4 (0.0-15.0) % Eosinophils % (Manual) 3 (0.0-7.0) % Nucleated RBC % 0.0 /100WBC Absolute Seg Neuts 9.5 H (1.4-5.7) Band Neutrophils # 0.9 Lymphocytes # (Manual) 3.0 H (0.6-2.4) Monocytes # (Manual) 0.6 (0.0-0.8) Eosinophils # (Manual) 0.4 (0.0-0.7) Nucleated RBCs # 0 K/uL Sodium 139 (136-145) mmol/L Potassium 3.3 L (3.5-5.1) mmol/L Chloride 101 (98-107) mmol/L Carbon Dioxide 27.1 (21.0-32.0) mmol/L BUN 16 (7.0-18.0) mg/dL Creatinine 2.0 H (0.6-1.0) mg/dL Est Cr Clr Drug Dosing 44.72 mL/min Estimated GFR (MDRD) 28.7 ml/min Glucose 127 H (74-106) mg/dL POC Glucose 112 H (60-110) mg/dL Calcium 8.3 L (8.5-10.1) mg/dL ACE Results - Last 24 hrs: Microbiology 03/25/19 08:09 Gram Stain - Final Perirectal Wound Culture - Final Enterococcus Faecalis Skin Nancy 03/25/19 08:09 Anaerobic Culture - Preliminary Wound - Perianal Anaerob Gp Cocci-No Further Id Anaerobic Gnb Not B Frag Grp Med Orders - Current: Current Medications Acetaminophen (Tylenol) 650 mg PO Q4H PRN PRN Reason: Pain (mild 1-3) Last Admin: 03/26/19 15:17 Dose: 650 mg Docusate Sodium (Colace) 100 mg PO BID PRN PRN Reason: Constipation Last Admin: 03/26/19 14:01 Dose: 100 mg Ceftriaxone Sodium/Dextrose 2 (gm/ Premix) 50 mls @ 100 mls/hr IV Q24H [facility] Last Admin: 03/30/19 11:12 Dose: 100 mls/hr Metronidazole 500 mg/ Premix 100 mls @ 100 mls/hr IV QID [facility] Last Admin: 03/31/19 05:24 Dose: 100 mls/hr Insulin Aspart (Novolog) 0 unit SUBCUT TIDAC [facility]; Protocol Last Admin: 03/31/19 07:35 Dose: Not Given Insulin Glargine (Lantus Solostar) 17 units SUBCUT BEDTIME [facility] Last Admin: 03/30/19 21:00 Dose: 17 units Morphine Sulfate (Morphine) 2 mg IVPUSH Q2H PRN PRN Reason: Pain Last Admin: 03/26/19 17:34 Dose: 2 mg Ondansetron HCl (Zofran) 4 mg IVPUSH Q4H PRN PRN Reason: Nausea Last Admin: 03/27/19 02:36 Dose: 4 mg Oxycodone/Acetaminophen (Percocet 325-10 Mg) 1 tab PO Q8H PRN PRN Reason: Pain Last Admin: 03/27/19 03:33 Dose: 1 tab Sodium Chloride (Saline Flush) 10 ml FLUSH ASDIRECTED PRN PRN Reason: Keep Vein Open Sodium Chloride (Saline Flush) 2.5 ml FLUSH ASDIRECTED PRN PRN Reason: Keep Vein Open Discontinued Medications Acetaminophen (Tylenol Extra Strength) 1,000 mg PO ONETIME ONE Stop: 03/25/19 00:00 Last Admin: 03/25/19 00:04 Dose: 1,000 mg Albuterol (Proventil Neb Soln) 2.5 mg NEB ONETIME PRN PRN Reason: Wheezing Atropine Sulfate (Atropine 0.1 Mg/Ml) 0.5 mg IVPUSH ASDIRECTED PRN PRN Reason: Hypo-perfusion Atropine Sulfate (Atropine 0.1 Mg/Ml) 1 mg IVPUSH ASDIRECTED PRN PRN Reason: Hypo-Perfusion Dextrose/Water (Dextrose 50% In Water) 50 ml IVPUSH ASDIRECTED PRN PRN Reason: Hypoglycemia Epinephrine HCl (Epinephrine 1:10,000) 1 mg IVPUSH ASDIRECTED PRN PRN Reason: ACLS Guidelines Fentanyl (Sublimaze) Confirm Administered Dose 250 mcg .ROUTE .STK-MED ONE Stop: 03/25/19 07:01 Fentanyl (Sublimaze) 50 - 100 mcg IVPUSH Q5M PRN PRN Reason: Pain Sodium Chloride (Normal Saline) 1,000 mls @ 999 mls/hr IV STAT ONE Stop: 03/25/19 00:59 Last Admin: 03/25/19 00:04 Dose: 999 mls/hr Sodium Chloride (Normal Saline) 1,000 mls @ 999 mls/hr IV .Bolus ONE Stop: 03/25/19 01:47 Last Admin: 03/25/19 00:48 Dose: 999 mls/hr Piperacillin Sod/Tazobactam (Sod 4.5 gm/ Sodium Chloride) 100 mls @ 100 mls/hr IV ONETIME ONE Stop: 03/25/19 02:08 Last Admin: 03/25/19 01:20 Dose: 100 mls/hr Sodium Chloride (Normal Saline) 1,000 mls @ 150 mls/hr IV ASDIRECTED [facility] Last Admin: 03/25/19 01:20 Dose: 150 mls/hr Clindamycin Phosphate 900 mg/ (Premix) 50 mls @ 100 mls/hr IV ONETIME ONE Stop: 03/25/19 03:45 Last Admin: 03/25/19 03:32 Dose: 100 mls/hr Bupivacaine HCl/Epinephrine Bitart (Sensorc Mpf 0.25%-Epi 1:910236) Confirm Administered Dose 30 mls @ as directed .ROUTE .STK-MED ONE Stop: 03/25/19 07:23 Clindamycin Phosphate 300 mg/ (Premix) 50 mls @ 150 mls/hr IV Q6H [facility] Piperacillin Sod/Tazobactam (Sod 4.5 gm/ Sodium Chloride) 100 mls @ 100 mls/hr IV Q6H [facility] Last Admin: 01/31/20 10:01 Dose: 100 mls/hr Sodium Chloride (Normal Saline) 1,000 mls @ 150 mls/hr IV Q6H [facility] Last Admin: 03/26/19 16:54 Dose: Not Given Vancomycin HCl 2 gm/ Sodium (Chloride) 500 mls @ 250 mls/hr IV Q12H [facility] Last Admin: 03/26/19 04:03 Dose: Not Given Magnesium Sulfate 2 gm/ Premix 50 mls @ 50 mls/hr IV ONETIME ONE Stop: 03/25/19 12:01 Last Admin: 03/25/19 11:15 Dose: 50 mls/hr Sodium Chloride (Normal Saline) 500 mls @ 999 mls/hr IV .BOLUS [facility] Last Admin: 03/25/19 16:56 Dose: 999 mls/hr Vancomycin HCl 2 gm/ Sodium (Chloride) 500 mls @ 250 mls/hr IV Q12H [facility] Last Admin: 03/27/19 02:30 Dose: 250 mls/hr Sodium Chloride (Normal Saline) 1,000 mls @ 125 mls/hr IV ASDIRECTED [facility] Last Admin: 03/27/19 09:09 Dose: 125 mls/hr Ibuprofen (Motrin) 800 mg PO ONETIME ONE Stop: 03/25/19 00:50 Last Admin: 03/25/19 00:53 Dose: 800 mg Insulin Aspart (Novolog) 0 unit SUBCUT TIDAC [facility]; Protocol Last Admin: 03/25/19 12:22 Dose: 2 units Insulin Glargine (Lantus Solostar) 15 units SUBCUT BEDTIME [facility] Last Admin: 03/26/19 21:42 Dose: 15 units Insulin Human Regular (Novolin R) 8 unit SUBCUT ONETIME ONE; Protocol Stop: 03/25/19 02:17 Last Admin: 03/25/19 02:24 Dose: 6 units Iopamidol (Isovue-370 (76%)) 100 ml IVPUSH ONETIME STA Stop: 03/25/19 01:17 Last Admin: 03/25/19 01:28 Dose: 100 ml Ketorolac Tromethamine (Toradol) 30 mg IVPUSH ONETIME ONE Stop: 03/25/19 00:26 Last Admin: 03/25/19 00:36 Dose: 30 mg Lidocaine (Xylocaine-Mpf 2%) Confirm Administered Dose 5 ml .ROUTE .STK-MED ONE Stop: 03/25/19 07:01 Midazolam HCl (Versed 1 Mg/Ml) Confirm Administered Dose 2 mg .ROUTE .STK-MED ONE Stop: 03/25/19 07:00 Morphine Sulfate (Morphine) 4 mg IVPUSH ONETIME ONE Stop: 03/25/19 00:26 Last Admin: 03/25/19 00:37 Dose: 4 mg Morphine Sulfate (Morphine) 4 mg IVPUSH ONETIME ONE Stop: 03/25/19 01:42 Last Admin: 03/25/19 01:47 Dose: 4 mg Naloxone HCl (Narcan) 0.1 mg IVPUSH ASDIRECTED PRN PRN Reason: Respiratory Depression Ondansetron HCl (Zofran) 4 mg IVPUSH ONETIME ONE Stop: 03/25/19 00:26 Last Admin: 03/25/19 00:37 Dose: 4 mg Ondansetron HCl (Zofran) Confirm Administered Dose 4 mg .ROUTE .STK-MED ONE Stop: 03/25/19 07:01 Phenylephrine HCl (Phenylephrine In Ns 100 Mcg/Ml) Confirm Administered Dose 1 mg .ROUTE .STK-MED ONE Stop: 03/25/19 08:06 Potassium Chloride (Klor-Con M20) 40 meq PO ONETIME ONE Stop: 03/29/19 10:21 Last Admin: 03/29/19 10:45 Dose: 40 meq Propofol (Diprivan 20 Ml) Confirm Administered Dose 200 mg .ROUTE .STK-MED ONE Stop: 03/25/19 07:00 Propofol (Diprivan 20 Ml) Confirm Administered Dose 200 mg .ROUTE .STK-MED ONE Stop: 03/25/19 07:38 Rocuronium [place] (Zemuron) Confirm Administered Dose 100 mg .ROUTE .STK-MED ONE Stop: 03/25/19 07:01 Vancomycin HCl (Pharmacy To Dose - Vancomycin) 1 dose .XX ASDIRECTED [facility] <Cale Cadet - Last Filed: 03/31/19 18:04> Discharge Summary - Referral to Home Health Primary Care Physician: PCP None - Patient Summary/Data Consults: Consultations 03/25/19 02:24 Consult to Physician [CONS] Stat 03/25/19 09:38 Consult to Vp Of Product [Consult to Diabetic Nurse Specialist] [CONS] Routine - Patient Data Vitals - Most Recent: Last Vital Signs Temp 36.4 C 03/31/19 11:26 Pulse 68 03/31/19 11:26 Resp 16 03/31/19 11:26 BP 127/70 03/31/19 11:26 Pulse Ox 95 03/31/19 11:26 I&O - Last 24 hours: Intake & Output 03/31/19 03/31/19 03/31/19 06:59 14:59 22:59 Intake Total 1200 880 Output Total 1300 600 Balance -100 280 Lab Results - Last 24 hrs: Laboratory Results - last 24 hr 03/30/19 03/31/19 03/31/19 Range/Units 20:56 06:03 06:03 WBC 14.42 H (4.0-11.0) K/uL RBC 4.76 (4.30-5.90) M/uL Hgb 13.6 (12.0-16.0) g/dL Hct 40.1 (36.0-46.0) % MCV 84.2 (80.0-98.0) fL MCH 28.6 (27.0-32.0) pg MCHC 33.9 (31.0-37.0) g/dL RDW Std Deviation 40.2 (28.0-62.0) fl RDW Coeff of Jocy 13 (11.0-15.0) % Plt Count 418 H (150-400) K/uL MPV 9.10 (7.40-12.00) fL Add Manual Diff YES Neutrophils % (Manual) 66 (48.0-80.0) % Band Neutrophils % 6 % Lymphocytes % (Manual) 21 (16.0-40.0) % Monocytes % (Manual) 4 (0.0-15.0) % Eosinophils % (Manual) 3 (0.0-7.0) % Nucleated RBC % 0.0 /100WBC Absolute Seg Neuts 9.5 H (1.4-5.7) Band Neutrophils # 0.9 Lymphocytes # (Manual) 3.0 H (0.6-2.4) Monocytes # (Manual) 0.6 (0.0-0.8) Eosinophils # (Manual) 0.4 (0.0-0.7) Nucleated RBCs # 0 K/uL Sodium 139 (136-145) mmol/L Potassium 3.3 L (3.5-5.1) mmol/L Chloride 101 (98-107) mmol/L Carbon Dioxide 27.1 (21.0-32.0) mmol/L BUN 16 (7.0-18.0) mg/dL Creatinine 2.0 H (0.6-1.0) mg/dL Est Cr Clr Drug Dosing 44.72 mL/min Estimated GFR (MDRD) 28.7 ml/min Glucose 127 H (74-106) mg/dL POC Glucose 140 H (60-110) mg/dL Calcium 8.3 L (8.5-10.1) mg/dL 03/31/19 03/31/19 Range/Units 06:27 11:25 WBC (4.0-11.0) K/uL RBC (4.30-5.90) M/uL Hgb (12.0-16.0) g/dL Hct (36.0-46.0) % MCV (80.0-98.0) fL MCH (27.0-32.0) pg MCHC (31.0-37.0) g/dL RDW Std Deviation (28.0-62.0) fl RDW Coeff of Jocy (11.0-15.0) % Plt Count (150-400) K/uL MPV (7.40-12.00) fL Add Manual Diff Neutrophils % (Manual) (48.0-80.0) % Band Neutrophils % % Lymphocytes % (Manual) (16.0-40.0) % Monocytes % (Manual) (0.0-15.0) % Eosinophils % (Manual) (0.0-7.0) % Nucleated RBC % /100WBC Absolute Seg Neuts (1.4-5.7) Band Neutrophils # Lymphocytes # (Manual) (0.6-2.4) Monocytes # (Manual) (0.0-0.8) Eosinophils # (Manual) (0.0-0.7) Nucleated RBCs # K/uL Sodium (136-145) mmol/L Potassium (3.5-5.1) mmol/L Chloride (98-107) mmol/L Carbon Dioxide (21.0-32.0) mmol/L BUN (7.0-18.0) mg/dL Creatinine (0.6-1.0) mg/dL Est Cr Clr Drug Dosing mL/min Estimated GFR (MDRD) ml/min Glucose (74-106) mg/dL POC Glucose 112 H 142 H (60-110) mg/dL Calcium (8.5-10.1) mg/dL Med Orders - Current: Current Medications Discontinued Medications Acetaminophen (Tylenol Extra Strength) 1,000 mg PO ONETIME ONE Stop: 03/25/19 00:00 Last Admin: 03/25/19 00:04 Dose: 1,000 mg Acetaminophen (Tylenol) 650 mg PO Q4H PRN PRN Reason: Pain (mild 1-3) Last Admin: 03/26/19 15:17 Dose: 650 mg Albuterol (Proventil Neb Soln) 2.5 mg NEB ONETIME PRN PRN Reason: Wheezing Atropine Sulfate (Atropine 0.1 Mg/Ml) 0.5 mg IVPUSH ASDIRECTED PRN PRN Reason: Hypo-perfusion Atropine Sulfate (Atropine 0.1 Mg/Ml) 1 mg IVPUSH ASDIRECTED PRN PRN Reason: Hypo-Perfusion Dextrose/Water (Dextrose 50% In Water) 50 ml IVPUSH ASDIRECTED PRN PRN Reason: Hypoglycemia Docusate Sodium (Colace) 100 mg PO BID PRN PRN Reason: Constipation Last Admin: 03/26/19 14:01 Dose: 100 mg Epinephrine HCl (Epinephrine 1:10,000) 1 mg IVPUSH ASDIRECTED PRN PRN Reason: ACLS Guidelines Fentanyl (Sublimaze) Confirm Administered Dose 250 mcg .ROUTE .STK-MED ONE Stop: 03/25/19 07:01 Fentanyl (Sublimaze) 50 - 100 mcg IVPUSH Q5M PRN PRN Reason: Pain Sodium Chloride (Normal Saline) 1,000 mls @ 999 mls/hr IV STAT ONE Stop: 03/25/19 00:59 Last Admin: 03/25/19 00:04 Dose: 999 mls/hr Sodium Chloride (Normal Saline) 1,000 mls @ 999 mls/hr IV .Bolus ONE Stop: 03/25/19 01:47 Last Admin: 03/25/19 00:48 Dose: 999 mls/hr Piperacillin Sod/Tazobactam (Sod 4.5 gm/ Sodium Chloride) 100 mls @ 100 mls/hr IV ONETIME ONE Stop: 03/25/19 02:08 Last Admin: 03/25/19 01:20 Dose: 100 mls/hr Sodium Chloride (Normal Saline) 1,000 mls @ 150 mls/hr IV ASDIRECTED [facility] Last Admin: 03/25/19 01:20 Dose: 150 mls/hr Clindamycin Phosphate 900 mg/ (Premix) 50 mls @ 100 mls/hr IV ONETIME ONE Stop: 03/25/19 03:45 Last Admin: 03/25/19 03:32 Dose: 100 mls/hr Bupivacaine HCl/Epinephrine Bitart (Sensorc Mpf 0.25%-Epi 1:[id number]) Confirm Administered Dose 30 mls @ as directed .ROUTE .STK-MED ONE Stop: 03/25/19 07:23 Clindamycin Phosphate 300 mg/ (Premix) 50 mls @ 150 mls/hr IV Q6H [facility] Piperacillin Sod/Tazobactam (Sod 4.5 gm/ Sodium Chloride) 100 mls @ 100 mls/hr IV Q6H [facility] Last Admin: 03/26/19 10:01 Dose: 100 mls/hr Sodium Chloride (Normal Saline) 1,000 mls @ 150 mls/hr IV Q6H [facility] Last Admin: 03/26/19 16:54 Dose: Not Given Vancomycin HCl 2 gm/ Sodium (Chloride) 500 mls @ 250 mls/hr IV Q12H [facility] Last Admin: 03/26/19 04:03 Dose: Not Given Magnesium Sulfate 2 gm/ Premix 50 mls @ 50 mls/hr IV ONETIME ONE Stop: 03/25/19 12:01 Last Admin: 03/25/19 11:15 Dose: 50 mls/hr Sodium Chloride (Normal Saline) 500 mls @ 999 mls/hr IV .BOLUS [facility] Last Admin: 03/25/19 16:56 Dose: 999 mls/hr Vancomycin HCl 2 gm/ Sodium (Chloride) 500 mls @ 250 mls/hr IV Q12H [facility] Last Admin: 03/27/19 02:30 Dose: 250 mls/hr Ceftriaxone Sodium/Dextrose 2 (gm/ Premix) 50 mls @ 100 mls/hr IV Q24H [facility] Last Admin: 03/31/19 09:55 Dose: 100 mls/hr Sodium Chloride (Normal Saline) 1,000 mls @ 125 mls/hr IV ASDIRECTED [facility] Last Admin: 03/27/19 09:09 Dose: 125 mls/hr Metronidazole 500 mg/ Premix 100 mls @ 100 mls/hr IV QID [facility] Last Admin: 03/31/19 13:00 Dose: Not Given Ibuprofen (Motrin) 800 mg PO ONETIME ONE Stop: 03/25/19 00:50 Last Admin: 03/25/19 00:53 Dose: 800 mg Insulin Aspart (Novolog) 0 unit SUBCUT TIDAC [facility]; Protocol Last Admin: 03/25/19 12:22 Dose: 2 units Insulin Aspart (Novolog) 0 unit SUBCUT TIDAC [facility]; Protocol Last Admin: 03/31/19 11:48 Dose: Not Given Insulin Glargine (Lantus Solostar) 15 units SUBCUT BEDTIME [facility] Last Admin: 03/26/19 21:42 Dose: 15 units Insulin Glargine (Lantus Solostar) 17 units SUBCUT BEDTIME [facility] Last Admin: 03/30/19 21:00 Dose: 17 units Insulin Human Regular (Novolin R) 8 unit SUBCUT ONETIME ONE; Protocol Stop: 03/25/19 02:17 Last Admin: 03/25/19 02:24 Dose: 6 units Iopamidol (Isovue-370 (76%)) 100 ml IVPUSH ONETIME STA Stop: 03/25/19 01:17 Last Admin: 03/25/19 01:28 Dose: 100 ml Ketorolac Tromethamine (Toradol) 30 mg IVPUSH ONETIME ONE Stop: 03/25/19 00:26 Last Admin: 03/25/19 00:36 Dose: 30 mg Lidocaine (Xylocaine-Mpf 2%) Confirm Administered Dose 5 ml .ROUTE .STK-MED ONE Stop: 03/25/19 07:01 Midazolam HCl (Versed 1 Mg/Ml) Confirm Administered Dose 2 mg .ROUTE .STK-MED ONE Stop: 03/25/19 07:00 Morphine Sulfate (Morphine) 4 mg IVPUSH ONETIME ONE Stop: 03/25/19 00:26 Last Admin: 03/25/19 00:37 Dose: 4 mg Morphine Sulfate (Morphine) 4 mg IVPUSH ONETIME ONE Stop: 03/25/19 01:42 Last Admin: 03/25/19 01:47 Dose: 4 mg Morphine Sulfate (Morphine) 2 mg IVPUSH Q2H PRN PRN Reason: Pain Last Admin: 03/26/19 17:34 Dose: 2 mg Naloxone HCl (Narcan) 0.1 mg IVPUSH ASDIRECTED PRN PRN Reason: Respiratory Depression Ondansetron HCl (Zofran) 4 mg IVPUSH ONETIME ONE Stop: 03/25/19 00:26 Last Admin: 03/25/19 00:37 Dose: 4 mg Ondansetron HCl (Zofran) Confirm Administered Dose 4 mg .ROUTE .STK-MED ONE Stop: 03/25/19 07:01 Ondansetron HCl (Zofran) 4 mg IVPUSH Q4H PRN PRN Reason: Nausea Last Admin: 03/27/19 02:36 Dose: 4 mg Oxycodone/Acetaminophen (Percocet 325-10 Mg) 1 tab PO Q8H PRN PRN Reason: Pain Last Admin: 03/27/19 03:33 Dose: 1 tab Phenylephrine HCl (Phenylephrine In Ns 100 Mcg/Ml) Confirm Administered Dose 1 mg .ROUTE .STK-MED ONE Stop: 03/25/19 08:06 Potassium Chloride (Klor-Con M20) 40 meq PO ONETIME ONE Stop: 03/29/19 10:21 Last Admin: 03/29/19 10:45 Dose: 40 meq Propofol (Diprivan 20 Ml) Confirm Administered Dose 200 mg .ROUTE .STK-MED ONE Stop: 03/25/19 07:00 Propofol (Diprivan 20 Ml) Confirm Administered Dose 200 mg .ROUTE .STK-MED ONE Stop: 03/25/19 07:38 Rocuronium [place] (Zemuron) Confirm Administered Dose 100 mg .ROUTE .STK-MED ONE Stop: 03/25/19 07:01 Sodium Chloride (Saline Flush) 10 ml FLUSH ASDIRECTED PRN PRN Reason: Keep Vein Open Sodium Chloride (Saline Flush) 2.5 ml FLUSH ASDIRECTED PRN PRN Reason: Keep Vein Open Vancomycin HCl (Pharmacy To Dose - Vancomycin) 1 dose .XX ASDIRECTED GOLDY - Free Text/Narrative Note: I have seen and evaluated the patient with the resident. I have discussed findings and treatment plan with the resident. I agree with the assessment and plan in the following note.
[2019-03-31] MEDS: cefTRIAXone 2 GM in Premix Bag 1 BAG IV SCH (09:55)
== END 2019-03-31 13:15 | disposition home or self-care (01) | DRG 710 ==
LOC: MW.ED 23:40 → MW.MS 03-25 03:24 → OBSVTOIN 03-25 03:24 → MW.MS 03-28 19:28
PROVIDERS: ADMIT Student in an Organized Health Care Education/Training Program; ATTEND Student in an Organized Health Care Education/Training Program
PROC: 0D9P0ZZ Drainage of Rectum, Open Approach (ICD-10-PCS; principal; 2019-03-25)
DX: A41.9 Sepsis, unspecified organism (principal); K61.1 Rectal abscess; N17.9 Acute kidney failure, unspecified; E11.9 Type 2 diabetes mellitus without complications; E66.01 Morbid (severe) obesity due to excess calories; B95.2 Enterococcus as the cause of diseases classified elsewhere; Z68.41 Body mass index [BMI] 40.0-44.9, adult
CPT/HCPCS: 00902; 36415; 72193; 72193-26; 80048; 80053; 80061; 80202; 81001; 81025; 82009; 82565; 82570; 82962; 83036; 83605; 83735; 84295; 84300; 84443; 85025; 87040; 87070; 87075; 87077; 87086; 87186; 87205; 88305; 93005; 99284; A9270-GY; J0696; J1815-GY; J1885; J2001; J2250; J2270; J2370; J2405; J2543; J2704; J3010; J3370; J3475; J3490; J7030; J7040; J7050; Q9967